=== PATIENT | male | born 1965 | race Native Hawaiian/Other Pacific Islander ===

== ENCOUNTER 2017-04-09 01:22 | Inpatient (IN) | payer OTHER ==
[2017-04-09] MEDS ORDERED: Sodium Chloride 0.9% 1,000 ML IV ONE ×2 (01:56→04:21)
[2017-04-09 02:15] LABS: BASO # 0.1 K/uL (0.0-0.2); BASO % 1.3 % (0.0-2.0); HEMATOCRIT 22.6 % (35.0-51.0); LYMPH # 2.8 K/uL (1.0-4.3); MEAN CELL VOLUME 92.9 fL (80.0-94.0); MEAN CORPUSCULAR HGB CONC 34.4 g/dL (33.0-37.0); MEAN PLATELET VOLUME 11.8 fL (7.2-11.7); MONO # 1.7 K/uL (0.0-0.8); NRBC % 0.9 % (0.0-2.0); RED CELL DISTRIBUTION WIDTH 14.4 % (11.5-14.5); WHITE BLOOD COUNT 9.8 K/uL (4.8-10.8)
[2017-04-09 02:23] LABS: INR 1.2
[2017-04-09 02:33] LABS: BILIRUBIN,TOTAL 2.8 mg/dL (0.2-1.3); CALCIUM 7.7 mg/dl (8.6-10.4); TOTAL PROTEIN 7.7 g/dL (6.3-8.3)
[2017-04-09 02:38] LABS: ALB/GLOB RATIO 0.8 (1.0-2.1)
[2017-04-09 02:45] LABS: TROPONIN I 0.032 ng/mL (0.00-0.120)
[2017-04-09 02:50] LABS: T4 7.94 ug/dL (5.5-11.0)
--- NOTE | 2017-04-09 03:07 | C.PDOC ---
History Of Present Illness 51 year old male presents to the ED with complaints of generalized weakness and difficulty sleeping for a few days. Patient notes a history of chronic alcoholism and stopped drinking alcohol one week ago. Patient denies any past medical history, headache, fever, nausea, or vomiting. Chief Complaint (Nursing): Weakness/Neurological Deficit History Per: Patient History/Exam Limitations: no limitations Onset/Duration Of Symptoms: Days Current Symptoms Are (Timing): Still Present Seizure Or Post-ictal Symptoms: None Fall Associated With With Symptoms: No Recent travel outside of the [place]: No Past Medical History Reviewed: Historical Data, Nursing Documentation, Vital Signs Vital Signs: Last Vital Signs Temp 97.6 F 04/09/17 01:41 Pulse 105 H 04/09/17 04:15 Resp 19 04/09/17 04:15 BP 106/68 04/09/17 04:15 Pulse Ox 98 04/09/17 04:46 Family History: States: Unknown Family Hx - Social History Hx Alcohol Use: Yes Hx Substance Use: No - Immunization History Hx Tetanus Toxoid Vaccination: No Hx Influenza Vaccination: No Hx Pneumococcal Vaccination: No Review Of Systems Constitutional: Positive for: Weakness. Negative for: Fever, Chills Cardiovascular: Negative for: Chest Pain Respiratory: Negative for: Shortness of Breath Gastrointestinal: Negative for: Nausea, Vomiting Physical Exam - Physical Exam Appears: Non-toxic, No Acute Distress Skin: Warm, Dry, Jaundice (slightly jaundice) Head: Atraumatic Eye(s): bilateral: Normal Inspection, PERRL, EOMI Oral Mucosa: Moist Neck: Supple Cardiovascular: No Murmur, Other (Patient is tachycardic ) Respiratory: Normal Breath Sounds, No Rhonchi, No Wheezing Gastrointestinal/Abdominal: Soft, No Tenderness, No Distention, No Guarding, No Rebound Neurological/Psych: Oriented x3, Normal Speech, Normal Cognition, Normal Cranial Nerves, Normal Motor, Normal Sensation Gait: Steady ED Course And Treatment - Laboratory Results Result Diagrams: 04/09/17 02:12 04/09/17 02:12 ECG: Interpreted By Me, Viewed By Me ECG Rhythm: Sinus Tachycardia, Nonspecific Changes ECG Interpretation: No Acute Changes, Abnormal Interpretation Of ECG: Sinus tachycardia, nonspc ST-T changes, abnornal tracings O2 Sat by Pulse Oximetry: 98 (room air ) Disposition Discussed With : Jeffry Lai Doctor Will See Patient In The: Hospital Counseled Patient/Family Regarding: Diagnosis - Disposition Disposition: HOSPITALIZED Disposition Time: 05:06 Condition: STABLE Forms: [facility] ([place]) - Clinical Impression Clinical Impression: Anemia, Liver dysfunction, Chronic alcoholic pancreatitis, Renal insufficiency - Scribe Statement The provider has reviewed the documentation as recorded by the Scribe Meagan Huynh All medical record entries made by the Siddharthibzunilda were at my direction and personally dictated by me. I have reviewed the chart and agree that the record accurately reflects my personal performance of the history, physical exam, medical decision making, and the department course for this patient. I have also personally directed, reviewed, and agree with the discharge instructions and disposition.
--- NOTE | 2017-04-09 03:16 | C.PDOC ---
Chief Complaint (Nursing): Weakness/Neurological Deficit Past Medical History Vital Signs: Last Vital Signs Temp 97.6 F 04/09/17 01:41 Pulse 68 04/09/17 01:41 Resp 18 04/09/17 01:41 BP 116/63 04/09/17 01:41 Pulse Ox 98 04/09/17 01:41 - Social History Hx Alcohol Use: Yes Hx Substance Use: No - Immunization History Hx Tetanus Toxoid Vaccination: No Hx Influenza Vaccination: No Hx Pneumococcal Vaccination: No ED Course And Treatment - Laboratory Results Result Diagrams: 04/09/17 02:12 04/09/17 02:12 O2 Sat by Pulse Oximetry: 98 Disposition Counseled Patient/Family Regarding: Diagnosis - Disposition Disposition: HOSPITALIZED Forms: [facility] ([place])
--- NOTE | 2017-04-09 03:23 | CT ---
EXAM: CT Head Without Intravenous Contrast CLINICAL HISTORY: 51 years old, male; Pain; Headache; Tension; Additional info: Lightheadedness TECHNIQUE: Axial computed tomography images of the head/brain without intravenous contrast. This CT exam was performed using one or more of the following dose reduction techniques: automated exposure control, adjustment of the mA and/or kV according to patient size, and/or use of iterative reconstruction technique. COMPARISON: No relevant prior studies available. FINDINGS: Brain: Nonspecific hypodensity in a left cerebral white matter. Changes consistent with nonspecific small vessel disease. No intracranial mass, mass effect, or midline shift. No hemorrhage. Ventricles: Unremarkable. No ventriculomegaly. Bones/joints: Unremarkable. No acute fracture. Soft tissues: Unremarkable. Sinuses: Unremarkable as visualized. No acute sinusitis. Mastoid air cells: Unremarkable as visualized. No mastoid effusion. IMPRESSION: No acute intracranial abnormality.
[2017-04-09] MEDS ORDERED: Multivitamin (MVI) 10 ML, Thiamine 100 MG, Folic Acid 1 MG in Sodium Chloride 0.9% 1,00... IV ONE (04:20)
--- NOTE | 2017-04-09 06:16 | CP.PCM.HP ---
<Shiraz Cha - Last Filed: 04/09/17 06:18> History of Present Illness - History of Present Illness History of Present Illness: PGY-[address] Lai HPI: Patient is a 51 y/o alcoholic male who presents to the ED with a 2 weeks history of feeling weak, sleepy and feeling unsteady while walking. He states that when he walks he needs to hold on to something so he does not fall down. He denies any prior episodes. Patient has been drinking 6 beers a day for ~30 years. His weakness is associated with diaphoresis and slurred speech. He denies Fever, chills, N/V/SOB/CP/abdominal pain, or tremors. He denies sick contacts and recent travel. PMH: Alcoholism PSH: none FH: none SH: * smoked 1ppd for 30 years, quit 2 weeks ago * drank a 6pack of beer every day for 30 years. quit 2 weeks ago * denies illicit drug use * He works on [employer], single, lives alone Meds: none Allergies: none Present on Admission - Present on Admission Any Indicators Present on Admission: No History of DVT/PE: No History of Uncontrolled Diabetes: No Urinary Catheter: No Decubitus Ulcer Present: No Review of Systems - Constitutional Constitutional: As Per HPI - EENT Eyes: As Per HPI Ears: As Per HPI Nose/Mouth/Throat: As Per HPI - Cardiovascular Cardiovascular: As Per HPI - Respiratory Respiratory: As Per HPI - Gastrointestinal Gastrointestinal: As Per HPI - Genitourinary Genitourinary: As Per HPI - Reproductive: Male Reproductive:Male: As Per HPI - Musculoskeletal Musculoskeletal: As Per HPI - Integumentary Integumentary: As Per HPI - Neurological Neurological: As Per HPI - Psychiatric Psychiatric: As Per HPI - Endocrine Endocrine: As Per HPI - Hematologic/Lymphatic Hematologic: As Per HPI Past Patient History - Past Social History Smoking Status: Former Smoker - PSYCHIATRIC Hx Substance Use: No - SURGICAL HISTORY Hx Surgeries: No Meds Allergies/Adverse Reactions: Allergies Allergy/AdvReac Type Severity Reaction Status Date / Time No Known Allergies Allergy Unverified 04/09/17 01:47 Physical Exam - Constitutional Appears: No Acute Distress Additional comments: lethargic laying in bed with eyes closed - Head Exam Head Exam: ATRAUMATIC, NORMAL INSPECTION, NORMOCEPHALIC - Eye Exam Eye Exam: EOMI, PERRL. absent: Conjunctival injection, Nystagmus, Periorbital swelling, Periorbital tenderness, Scleral icterus Pupil Exam: NORMAL ACCOMODATION, PERRL. absent: Fixed, Irregular, Miosis, Mydriatic - ENT Exam ENT Exam: Mucous Membranes Moist - Respiratory Exam Respiratory Exam: Clear to Auscultation Bilateral, NORMAL BREATHING PATTERN. absent: Accessory Muscle Use, Chest Wall Tenderness, Rales, Rhonchi, Wheezes, Stridor - Cardiovascular Exam Cardiovascular Exam: Tachycardia, REGULAR RHYTHM. absent: Gallop, Rubs - GI/Abdominal Exam GI & Abdominal Exam: Organomegaly (hepatomegaly), Soft. absent: Distended, Tenderness - Extremities Exam Additional comments: upper and lower muscle strength 5/5 - Neurological Exam Neurological exam: Alert, Oriented x3 - Psychiatric Exam Psychiatric exam: Normal Affect, Normal Mood - Skin Skin Exam: Dry, Intact, Normal Color, Warm Results - Vital Signs Recent Vital Signs: Last Vital Signs Temp 97.6 F 04/09/17 01:41 Pulse 104 H 04/09/17 05:45 Resp 22 04/09/17 05:45 BP 129/75 04/09/17 05:45 Pulse Ox 99 04/09/17 05:45 - Labs Result Diagrams: 04/09/17 02:12 04/09/17 02:12 Assessment & Plan - Assessment and Plan (Free Text) Assessment: 1. Chronic Alcoholism * Banana bag administered in ER * 2L NS administered in ER * Continue to Monitor for Signs of DTs, Stopped drinking 2 weeks ago so seizure ppx not necessary * monitor hyponatremia 2. Anemia * Type and screen/type and cross done * repeat stool occult blood - F/U * cbc/cmp to monitor Hgb - F/U * ferritin lvls - F/U * folate lvls - F/U * Fe/TIBC lvls - F/U * reticulocyte count - F/U * vit b12 - F/U * Transfuse if Hgb drops below 7 - Date & Time Date: 04/09/17 Time: 06:34 Decision To Admit - Pt Status Changed To: Hospital Disposition Of: Inpatient - Admit Certification Admit to Inpatient:: After my assessment, the patient will require hospitalization for at least two midnights. This is because of the severity of symptoms shown, intensity of services needed, and/or the medical risk in this patient being treated as an outpatient. - InPatient: Physician Admission Certification:: . - . Bed Request Type: Regular Admitting Physician: Jeffry Lai <Jeffry Lai - Last Filed: 04/09/17 06:48> Results - Vital Signs Recent Vital Signs: Last Vital Signs Temp 97.6 F 04/09/17 01:41 Pulse 104 H 04/09/17 05:45 Resp 22 04/09/17 05:45 BP 129/75 04/09/17 05:45 Pulse Ox 99 04/09/17 05:45 - Labs Result Diagrams: 04/09/17 02:12 04/09/17 02:12 Assessment & Plan - Date & Time Date: 04/09/17 (I have seen and examined the patient. I agree with the findings and plan of care as documented by Dr. Cha. Patient with anemia. Hypotensive and tachycardic in ED, but improved with IVF. Type and Cross 1 unit. Transfuse if hemoglobin drops below 7 or patient has significant source of bleeding. Hemoccult done in ED negative. Check stool OB. Check iron studies, B12, folate, and retic count. CIWA protocol if patient shows signs and symptoms of alcohol withdrawal. Monitor sodium level for worsening hyponatremia. Received normal saline in ED. Monitor for acute changes.) Time: 06:45 Attending/Attestation - Attestation I have personally seen and examined this patient.: Yes I have fully participated in the care of the patient.: Yes I have reviewed all pertinent clinical information: Yes
[2017-04-09 08:11] LABS: BASO # 0.1 K/uL (0.0-0.2); BASO % 0.8 % (0.0-2.0); HEMATOCRIT 16.9 % (35.0-51.0); LYMPH # 2.1 K/uL (1.0-4.3); LYMPH % 29.9 % (20.0-40.0); MEAN CELL VOLUME 93.4 fL (80.0-94.0); MEAN CORPUSCULAR HGB CONC 34.2 g/dL (33.0-37.0); MONO # 1.2 K/uL (0.0-0.8); MONO % 17.2 % (0.0-10.0); NRBC % 0.8 % (0.0-2.0); RED CELL DISTRIBUTION WIDTH 14.1 % (11.5-14.5); RETIC% 10.2 % (0.5-1.5)
[2017-04-09 08:20] LABS: CHLORIDE 102 mmol/L (98-107); SODIUM 132 mmol/L (132-148)
[2017-04-09 08:21] LABS: URINE BACTERIA RARE (<OCC); URINE BILIRUBIN NEGATIVE (NEGATIVE); URINE BLOOD 2+ (NEGATIVE); URINE COLOR Amber (YELLOW); URINE GLUCOSE (UA) NORMAL (Normal); URINE KETONE NEGATIVE (NEGATIVE); URINE LEUKOCYTE ESTERASE NEG Leu/uL (Negative); URINE PROTEIN NEGATIVE (NEGATIVE); URINE UROBILINOGEN NORMAL mg/dL (0.2-1.0)
[2017-04-09 08:21] LABS: IRON 104 ug/dL (49-181); POTASSIUM 4.5 mmol/L (3.6-5.2)
[2017-04-09 08:23] LABS: ALB/GLOB RATIO 0.7 (1.0-2.1); ALKALINE PHOSPHATASE 42 U/L (38-126); ALT/SGPT 48 U/L (21-72); AST/SGOT 61 U/L (17-59); BILIRUBIN,TOTAL 1.6 mg/dL (0.2-1.3); BLOOD UREA NITROGEN 57 mg/dL (9-20); CARBON DIOXIDE 18 mmol/L (22-30); GFR AFRICAN-AMERICAN > 60; GLUCOSE,RANDOM 107 mg/dL (75-110); TOTAL PROTEIN 5.8 g/dL (6.3-8.3)
[2017-04-09 08:30] LABS: URINE HYALINE CAST 0-2 /lpf (0-2); WBC URINE 5 /hpf (0-5)
[2017-04-09 08:32] LABS: RBC URINE 3 /hpf (0-3)
--- NOTE | 2017-04-09 08:35 | RAD ---
HISTORY: chest pain COMPARISON: No prior. TECHNIQUE: Chest PA and lateral FINDINGS: LUNGS: Diffuse increased interstitial lung markings. Patchy increased markings at the right lung base. Biapical pleural thickening with upper lobe nodularity and or granulomatous changes. PLEURA: No significant pleural effusion identified. No pneumothorax apparent. CARDIOVASCULAR: Normal. OSSEOUS STRUCTURES: No significant abnormalities. VISUALIZED UPPER ABDOMEN: Normal. OTHER FINDINGS: None. IMPRESSION: Diffuse increased interstitial lung markings. Patchy increased markings at the right lung base. Biapical pleural thickening with upper lobe nodularity and or granulomatous changes.
[2017-04-09 08:36] LABS: CALCIUM 6.6 mg/dl (8.6-10.4)
[2017-04-09] MEDS ORDERED: Pantoprazole 80 MG in Sodium Chloride 0.9% 100 ML IVP SCH (08:45)
[2017-04-09 09:12] LABS: BASO # 0.1 K/uL (0.0-0.2); BASO % 0.8 % (0.0-2.0); HEMATOCRIT 19.4 % (35.0-51.0); LYMPH # 3.3 K/uL (1.0-4.3); LYMPH % 34.7 % (20.0-40.0); MEAN CELL VOLUME 93.9 fL (80.0-94.0); MEAN CORPUSCULAR HEMOGLOBIN 32.3 pg (27.0-31.0); MEAN CORPUSCULAR HGB CONC 34.3 g/dL (33.0-37.0); MEAN PLATELET VOLUME 11.7 fL (7.2-11.7); MONO # 1.6 K/uL (0.0-0.8); MONO % 16.6 % (0.0-10.0); NRBC % 0.7 % (0.0-2.0); RED CELL DISTRIBUTION WIDTH 14.1 % (11.5-14.5); WHITE BLOOD COUNT 9.4 K/uL (4.8-10.8)
[2017-04-09 09:28] LABS: FOLATE > 20.0 ng/mL
[2017-04-09] MEDS: Pantoprazole 80 MG in Sodium Chloride 0.9% 100 ML IV SCH ×3 (09:45→22:39)
[2017-04-09] MEDS ORDERED: Pneumococcal 23-Valent Vaccine IM ONE (11:49)
[2017-04-09] MEDS: Thiamine 100 mg/ml Inj IV SCH (12:28)
[2017-04-09 13:32] LABS: CARCINOEMBRYONIC ANTIGEN 3.6 ng/mL (0-3.0)
[2017-04-09 13:33] LABS: PROSTATE SPECIFIC ANTIGEN 0.297 ng/mL (0.00-4.0)
--- NOTE | 2017-04-09 18:16 | CP.PCM.PN ---
Subjective - Date & Time of Evaluation Date of Evaluation: 04/09/17 Time of Evaluation: 08:00 - Subjective Subjective: Progress Note for Dr. Carreno Patient seen and examined at bedside. Patient reports feeling fatigued and weak. Patient denies changes in stool, dark tarry stools. Patient denies nausea , vomiting, hematemesis, constipation, diarrhea, hematochezia. Per patient, the last time he drank alcohol was on 03/24/17. Patient denies tremors. Objective - Vital Signs/Intake and Output Vital Signs (last 24 hours): Temp Pulse Resp BP Pulse Ox 98.2 F 90 20 120/70 100 04/09/17 17:00 04/09/17 17:00 04/09/17 17:00 04/09/17 17:00 04/09/17 15:36 Intake and Output: 04/09/17 04/09/17 06:59 18:59 Intake Total 775 Balance 775 - Medications Medications: Current Medications Folic Acid 1 mg/ Sodium (Chloride) 100.2 mls @ 60 mls/hr IV DAILY JASSON Last Admin: 04/09/17 09:45 Dose: 60 mls/hr Pantoprazole Sodium 80 mg/ (Sodium Chloride) 100 mls @ 10 mls/hr IV .Q10H JASSON PRN Reason: 8 MG/HR Last Admin: 04/09/17 09:45 Dose: 10 mls/hr Thiamine HCl (Vitamin B1 Inj) 100 mg IV DAILY JASSON Last Admin: 04/09/17 12:28 Dose: 100 mg - Labs Labs: 04/09/17 09:07 04/09/17 08:00 PT 12.9 SECONDS (9.7-12.2) H 04/09/17 02:12 INR 1.2 04/09/17 02:12 - Constitutional Appears: No Acute Distress - Head Exam Head Exam: ATRAUMATIC, NORMAL INSPECTION, NORMOCEPHALIC - Eye Exam Eye Exam: EOMI, PERRL - ENT Exam ENT Exam: Mucous Membranes Moist - Respiratory Exam Respiratory Exam: Clear to Ausculation Bilateral - Cardiovascular Exam Cardiovascular Exam: REGULAR RHYTHM, +S1, +S2 - GI/Abdominal Exam GI & Abdominal Exam: Soft, Normal Bowel Sounds. absent: Tenderness - Extremities Exam Extremities Exam: absent: Pedal Edema, Tenderness - Neurological Exam Neurological Exam: Alert, Awake, Oriented x3 - Skin Skin Exam: Dry, Intact, Pallor Assessment and Plan - Assessment and Plan (Free Text) Plan: 1. Chronic Alcoholism * Banana bag administered in ER * 2L NS administered in ER * Continue to Monitor for Signs of DTs, Stopped drinking 2 weeks ago so seizure ppx not necessary * monitor hyponatremia * Lipase 457 * Thiamine IV * Folate IV * Protonix drip 2. Anemia * Dr. Angela (GI) consulted, help appreciated * Type and screen/type and cross done * repeat stool occult blood - F/U * cbc/cmp to monitor Hgb - F/U * Iron 104 * TIBC low at 214 * Ferritin 4760 * reticulocyte count -elevated at 12.3 * vit b12 - 779 * CEA elevated at 3.6 * PSA 0.297 * LDH elevated at 3501 * F/u haptoglobin * Transfuse if Hgb drops below 7 04/09/17: Patient transfused 2 units of PRBCs. After the first transfusion, patient was reexamined and reported that he felt much better since this morning. F/u repeat CBC after 2nd transfusion. Case discussed with Dr. Wai Rojas PGY1
[2017-04-09] MEDS: Sodium Chloride 0.9% 1,000 ML IV SCH (22:41)
[2017-04-10 01:18] LABS: BASO # 0.1 K/uL (0.0-0.2); HEMATOCRIT 24.5 % (35.0-51.0); LYMPH # 1.8 K/uL (1.0-4.3); MEAN CELL VOLUME 92.5 fL (80.0-94.0); MEAN CORPUSCULAR HEMOGLOBIN 31.5 pg (27.0-31.0); MEAN CORPUSCULAR HGB CONC 34.1 g/dL (33.0-37.0); MEAN PLATELET VOLUME 11.2 fL (7.2-11.7); MONO # 1.3 K/uL (0.0-0.8); NRBC % 1.8 % (0.0-2.0); RED CELL DISTRIBUTION WIDTH 14.7 % (11.5-14.5); WHITE BLOOD COUNT 6.7 K/uL (4.8-10.8)
--- NOTE | 2017-04-10 10:47 | CP.PCM.PN ---
Subjective - Date & Time of Evaluation Date of Evaluation: 04/10/17 Time of Evaluation: 10:47 - Subjective Subjective: PGY-[address] Martinez HPI: Patient was seen and examined at bedside. Resting comfortably in NAD. Patient admits to continued feelings of generalized weakness and lightheadedness. Also mentions feeling slightly dizzy on attempts at ambulation. Denies any slips or falls during these attempts. He reports receiving adequate sleep last night, and has been passing urine and BM without issue. Patient denies signs of fevers, chills, chest pain, palpitations, SOB, n/ v/d, abdominal pain, hematemsis, hematochezia, melena, dysuria, hematuria, leg pain or syncope. No other complaints are noted at this time. Objective - Vital Signs/Intake and Output Vital Signs (last 24 hours): Temp Pulse Resp BP Pulse Ox 98.8 F 92 H 20 118/71 99 04/10/17 08:46 04/10/17 08:46 04/10/17 08:46 04/10/17 08:46 04/10/17 08:46 Intake and Output: 04/10/17 04/10/17 06:59 18:59 Intake Total 1885 Balance 1885 - Medications Medications: Current Medications Folic Acid 1 mg/ Sodium (Chloride) 100.2 mls @ 60 mls/hr IV DAILY JASSON Last Admin: 04/09/17 09:45 Dose: 60 mls/hr Pantoprazole Sodium 80 mg/ (Sodium Chloride) 100 mls @ 10 mls/hr IV .Q10H JASSON PRN Reason: 8 MG/HR Last Admin: 04/09/17 22:39 Dose: 10 mls/hr Sodium Chloride (Sodium Chloride 0.9%) 1,000 mls @ 100 mls/hr IV .Q10H JASSON Last Admin: 04/09/17 22:41 Dose: 100 mls/hr Thiamine HCl (Vitamin B1 Inj) 100 mg IV DAILY JASSON Last Admin: 04/09/17 12:28 Dose: 100 mg - Labs Labs: 04/10/17 00:48 04/09/17 08:00 PT 12.9 SECONDS (9.7-12.2) H 04/09/17 02:12 INR 1.2 04/09/17 02:12 - Constitutional Appears: Well, No Acute Distress - Head Exam Head Exam: ATRAUMATIC, NORMAL INSPECTION, NORMOCEPHALIC - Eye Exam Eye Exam: EOMI - ENT Exam ENT Exam: Mucous Membranes Moist - Respiratory Exam Respiratory Exam: Clear to Ausculation Bilateral, NORMAL BREATHING PATTERN - Cardiovascular Exam Cardiovascular Exam: REGULAR RHYTHM, RRR - GI/Abdominal Exam GI & Abdominal Exam: Soft, Normal Bowel Sounds. absent: Distended, Guarding, Rigid, Tenderness - Extremities Exam Extremities Exam: Normal Capillary Refill. absent: Joint Swelling - Neurological Exam Neurological Exam: Alert, Awake, Oriented x3 - Psychiatric Exam Psychiatric exam: Normal Affect, Normal Mood - Skin Skin Exam: Dry, Intact, Normal Color, Warm Assessment and Plan - Assessment and Plan (Free Text) Assessment: 1. Chronic Alcoholism * Banana bag administered in ER * 2L NS administered in ER * Continue to Monitor for Signs of DTs, Stopped drinking 2 weeks ago so seizure ppx not necessary * monitor hyponatremia * Lipase 457 * Thiamine IV * Folate IV * Protonix drip 2. Anemia * Dr. Angela (GI) consulted, help appreciated * repeat stool occult blood - F/U * cbc/cmp to monitor Hgb - F/U * Iron 104 * TIBC low at 214 * Ferritin 4760 * reticulocyte count - elevated at 12.3 * vit b12 - 779 * CEA elevated at 3.6 * PSA 0.297 * LDH elevated at 3501 * F/u haptoglobin * Transfuse if Hgb drops below 7 * Seen by GI (Julio César), says pt does not need a scope at this time * Will consider bleeding scan to determine source of bleed 04/09/17: Patient transfused 2 units of PRBCs. After the first transfusion, patient was reexamined and reported that he felt much better since this morning. F/u repeat CBC after 2nd transfusion.
[2017-04-10] MEDS: Sodium Chloride 0.9% 1,000 ML IV SCH ×3 (11:00→21:57)
[2017-04-10] MEDS: Thiamine 100 mg/ml Inj IV SCH (11:00)
[2017-04-10] MEDS: Pantoprazole 80 MG in Sodium Chloride 0.9% 100 ML IV SCH ×2 (11:15→21:56)
[2017-04-10 11:35] LABS: CHLORIDE 111 mmol/L (98-107); POTASSIUM 4.5 mmol/L (3.6-5.2); SODIUM 138 mmol/L (132-148)
[2017-04-10 11:37] LABS: CARBON DIOXIDE 19 mmol/L (22-30); GFR AFRICAN-AMERICAN > 60
[2017-04-10 11:38] LABS: ALB/GLOB RATIO 0.7 (1.0-2.1); ALKALINE PHOSPHATASE 47 U/L (38-126); ALT/SGPT 42 U/L (21-72); AST/SGOT 57 U/L (17-59); BLOOD UREA NITROGEN 33 mg/dL (9-20); CALCIUM 7.4 mg/dl (8.6-10.4); GLUCOSE,RANDOM 97 mg/dL (75-110); TOTAL PROTEIN 5.7 g/dL (6.3-8.3)
--- NOTE | 2017-04-10 14:20 | CARD ---
APPROVED REPORT EKG Measurement Heart [id number] <Conclusion> Sinus tachycardia Nonspecific ST abnormality Abnormal ECG
[2017-04-10 17:49] LABS: BASO # 0.1 K/uL (0.0-0.2); LYMPH # 2.5 K/uL (1.0-4.3); LYMPH % 35.7 % (20.0-40.0); MEAN CELL VOLUME 95.8 fL (80.0-94.0); MEAN CORPUSCULAR HEMOGLOBIN 32.4 pg (27.0-31.0); MEAN CORPUSCULAR HGB CONC 33.8 g/dL (33.0-37.0); MEAN PLATELET VOLUME 10.6 fL (7.2-11.7); MONO # 1.2 K/uL (0.0-0.8); MONO % 16.4 % (0.0-10.0); NRBC % 0.5 % (0.0-2.0); RED CELL DISTRIBUTION WIDTH 14.8 % (11.5-14.5); WHITE BLOOD COUNT 7.1 K/uL (4.8-10.8)
[2017-04-11] MEDS: Pantoprazole 80 MG in Sodium Chloride 0.9% 100 ML IV SCH ×2 (00:45→10:45)
[2017-04-11] MEDS: Sodium Chloride 0.9% 1,000 ML IV SCH ×2 (05:40→06:44)
[2017-04-11 08:10] LABS: BASO % 0.6 % (0.0-2.0); HEMATOCRIT 23.3 % (35.0-51.0); LYMPH # 2.1 K/uL (1.0-4.3); LYMPH % 31.9 % (20.0-40.0); MEAN CELL VOLUME 97.1 fL (80.0-94.0); MEAN CORPUSCULAR HEMOGLOBIN 32.4 pg (27.0-31.0); MEAN CORPUSCULAR HGB CONC 33.4 g/dL (33.0-37.0); MONO % 15.9 % (0.0-10.0); NRBC % 0.3 % (0.0-2.0); RED CELL DISTRIBUTION WIDTH 14.8 % (11.5-14.5); WHITE BLOOD COUNT 6.6 K/uL (4.8-10.8)
[2017-04-11 08:33] LABS: CHLORIDE 113 mmol/L (98-107)
[2017-04-11 08:34] LABS: SODIUM 139 mmol/L (132-148)
[2017-04-11 08:36] LABS: BILIRUBIN,TOTAL 1.4 mg/dL (0.2-1.3); CARBON DIOXIDE 17 mmol/L (22-30); GFR AFRICAN-AMERICAN > 60
[2017-04-11 08:37] LABS: ALB/GLOB RATIO 0.7 (1.0-2.1); ALKALINE PHOSPHATASE 48 U/L (38-126); ALT/SGPT 36 U/L (21-72); AST/SGOT 47 U/L (17-59); BLOOD UREA NITROGEN 30 mg/dL (9-20); CALCIUM 7.2 mg/dl (8.6-10.4); GLUCOSE,RANDOM 103 mg/dL (75-110); TOTAL PROTEIN 5.4 g/dL (6.3-8.3)
[2017-04-11] MEDS ORDERED: Folic Acid 1 MG, Thiamine 100 MG, Multivitamin (MVI) 10 ML in Dextrose 5% In Water 1,00... IV SCH (12:00)
--- NOTE | 2017-04-11 15:22 | CP.PCM.CON ---
<Asif Martinez - Last Filed: 04/11/17 15:26> History of Present Illness - History of Present Illness History of Present Illness: PGY4 Initial GI Consult Note Mani Lynn is a 51M w/ no sig med hx who present to the EDw ith complaints of malaise, weakness, and near syncope. Pt states that he has been having these symptoms for a few weeks. He was found to have a low hgb og 6.7 after admission and was transfused 2 units. Pts states that he felt much better after the first unit. His hgb peaked to 8.8, but then slowly declined to around ~ 7.8 s/p 2 units. Pt and nursing staff denies any melena, hematemsis, or BRBPR. He denies any abd pain. He does have a sig drinking hx of 6-8 beers daily for the past 30 years. He notes that his friends sometimes comment on how yellow his skin looks and though he has not weighted himself, he states that his friends noticed that his lost weight. ROS: 12point ROS conducted, other than what was stated above its otherwise neg PMHx: Etoh use PSHx:none Social hx: + drinking hx 6-8 beers daily, 1 pack a day for 20+ years; quit both 2 weeks ago Endo hx: none Past Patient History - Past Social History Smoking Status: Former Smoker - MUSCULOSKELETAL/RHEUMATOLOGICAL Hx Falls: No - PSYCHIATRIC Hx Substance Use: No - SURGICAL HISTORY Hx Surgeries: No Meds Allergies/Adverse Reactions: Allergies Allergy/AdvReac Type Severity Reaction Status Date / Time No Known Allergies Allergy Unverified 04/09/17 01:47 - Medications Medications: Current Medications Pantoprazole Sodium 80 mg/ (Sodium Chloride) 100 mls @ 10 mls/hr IV .Q10H [facility] PRN Reason: 8 MG/HR Last Admin: 04/11/17 10:45 Dose: 10 mls/hr Folic Acid 1 mg/ Thiamine HCl 100 mg/ Multivitamins/Vitamin C 10 ml/ Dextrose 1 ,011.2 mls @ 75 mls/hr IV .[id number] [facility] Stop: 04/12/17 01:28 Last Admin: 04/11/17 11:00 Dose: Not Given Folic Acid 1 mg/ Thiamine HCl 100 mg/ Multivitamins/Vitamin C 10 ml/ Dextrose 1 ,011.2 mls @ 75 mls/hr IV .[id number] [facility] Stop: 04/12/17 14:58 Physical Exam - Constitutional Appears: Well, No Acute Distress - Head Exam Head Exam: ATRAUMATIC, NORMOCEPHALIC - Eye Exam Eye Exam: Normal appearance - ENT Exam ENT Exam: Mucous Membranes Moist, Normal Exam - Neck Exam Neck exam: Positive for: Normal Inspection - Respiratory Exam Respiratory Exam: Clear to Auscultation Bilateral, Wheezes, NORMAL BREATHING PATTERN. absent: Rales, Rhonchi - Cardiovascular Exam Cardiovascular Exam: REGULAR RHYTHM, +S1. absent: Systolic Murmur - GI/Abdominal Exam GI & Abdominal Exam: Normal Bowel Sounds, Soft. absent: Guarding, Hypoactive Bowel Sounds, Organomegaly, Pulsatile Mass, Rebound, Rigid, Tenderness - Extremities Exam Extremities exam: Positive for: normal inspection - Neurological Exam Neurological exam: Alert, Normal Gait, Oriented x3 - Psychiatric Exam Psychiatric exam: Normal Affect, Normal Mood - Skin Skin Exam: Dry, Intact, Normal Color, Warm Results - Vital Signs Recent Vital Signs: Last Vital Signs Temp 98.4 F 04/11/17 13:42 Pulse 96 H 04/11/17 13:42 Resp 18 04/11/17 13:42 BP 130/78 04/11/17 13:42 Pulse Ox 99 04/11/17 08:00 - Labs Result Diagrams: 04/11/17 07:58 04/11/17 07:58 Labs: Laboratory Results - last 24 hr 04/09/17 04/10/17 04/10/17 12:19 17:44 17:44 WBC 7.1 RBC 2.71 L Hgb 8.8 L Hct 26.0 L MCV 95.8 H D MCH 32.4 H MCHC 33.8 RDW 14.8 H Plt Count 110 L MPV 10.6 Neut % (Auto) 46.9 L Lymph % (Auto) 35.7 [place] % (Auto) 16.4 H Eos % (Auto) 0.0 Baso % (Auto) 1.0 Neut # 3.3 Lymph # 2.5 [place] # 1.2 H Eos # 0.0 Baso # 0.1 Haptoglobin <15 L Sodium Potassium Chloride Carbon Dioxide Anion Gap BUN Creatinine Est GFR ( Amer) Est GFR (Non-Af Amer) Random Glucose Calcium Total Bilirubin AST ALT Alkaline Phosphatase Total Protein Albumin Globulin Albumin/Globulin Ratio Stool Occult Blood Negative 04/10/17 04/11/17 04/11/17 17:44 07:58 07:58 WBC 6.6 RBC 2.40 L Hgb 7.8 L Hct 23.3 L MCV 97.1 H MCH 32.4 H MCHC 33.4 RDW 14.8 H Plt Count 115 L MPV 11.0 Neut % (Auto) 51.6 Lymph % (Auto) 31.9 [place] % (Auto) 15.9 H Eos % (Auto) 0.0 Baso % (Auto) 0.6 Neut # 3.4 Lymph # 2.1 [place] # 1.0 H Eos # 0.0 Baso # 0.0 Haptoglobin Sodium 139 Potassium 5.0 Chloride 113 H Carbon Dioxide 17 L Anion Gap 14 BUN 30 H Creatinine 1.2 Est GFR ( Amer) > 60 Est GFR (Non-Af Amer) > 60 Random Glucose 103 Calcium 7.2 L Total Bilirubin 1.4 H AST 47 ALT 36 Alkaline Phosphatase 48 Total Protein 5.4 L Albumin 2.2 L Globulin 3.3 Albumin/Globulin Ratio 0.7 L Stool Occult Blood Negative Assessment & Plan - Assessment and Plan (Free Text) Assessment: This pt is a 51M w/ hx of Etoh abuse who presents with anemia. etiology of normocytic anemia is unknown r/o GI loss 1. Normocytic anemia. mixed> DDx: iron def and chronic disease 2. hx of Etoh abuse 3. thrombocytopenia, etiology: DDx: Etoh, portal vein thrombosis, early cirrhosis Plan: -plan for EGD tomorrow -NPO after midnight -complete iron profile -U/S w/ dopplers -consent in chart -pt made aware of risk vs benefits and still wants to proceed with EGD -will eventually need an outpt colonoscopy D/W Dr. Diez <Vini Diez - Last Filed: 04/12/17 10:31> Meds - Medications Medications: Current Medications Pantoprazole Sodium 80 mg/ (Sodium Chloride) 100 mls @ 10 mls/hr IV .Q10H [facility] PRN Reason: 8 MG/HR Last Admin: 04/12/17 06:44 Dose: Not Given Folic Acid 1 mg/ Thiamine HCl 100 mg/ Multivitamins/Vitamin C 10 ml/ Dextrose 1 ,011.2 mls @ 75 mls/hr IV .[id number] [facility] Stop: 04/12/17 14:58 Last Admin: 04/12/17 01:25 Dose: 75 mls/hr Results - Vital Signs Recent Vital Signs: Last Vital Signs Temp 99.2 F 04/12/17 08:30 Pulse 95 H 04/12/17 08:30 Resp 20 04/12/17 08:30 BP 132/79 04/12/17 08:30 Pulse Ox 99 04/12/17 08:30 - Labs Result Diagrams: 04/12/17 06:10 04/12/17 07:15 Labs: Laboratory Results - last 24 hr 04/11/17 04/11/17 04/12/17 20:12 22:53 06:10 WBC 6.1 6.9 RBC 2.76 L 2.70 L Hgb 8.8 L 8.7 L Hct 26.2 L 25.7 L MCV 95.0 H D 95.4 H MCH 32.0 H 32.2 H MCHC 33.7 33.8 RDW 16.0 H 16.6 H Plt Count 111 L 112 L MPV 9.5 10.2 Neut % (Auto) 61.3 59.0 Lymph % (Auto) 23.7 27.3 [place] % (Auto) 14.5 H 13.1 H Eos % (Auto) 0.0 0.0 Baso % (Auto) 0.5 0.6 Neut # 3.8 4.1 Lymph # 1.5 1.9 [place] # 0.9 H 0.9 H Eos # 0.0 0.0 Baso # 0.0 0.0 Neutrophils % (Manual) 60 Band Neutrophils % 9 H Lymphocytes % (Manual) 15 L Monocytes % (Manual) 14 H Metamyelocytes % 2 H Platelet Estimate Slightly decreased L Anisocytosis (manual) Slight Macrocytosis (manual) Slight Sodium Potassium Chloride Carbon Dioxide Anion Gap BUN Creatinine Est GFR ( Amer) Est GFR (Non-Af Amer) Random Glucose Calcium Total Bilirubin AST ALT Alkaline Phosphatase Total Protein Albumin Globulin Albumin/Globulin Ratio Stool Occult Blood Negative 04/12/17 07:15 WBC RBC Hgb Hct MCV MCH MCHC RDW Plt Count MPV Neut % (Auto) Lymph % (Auto) [place] % (Auto) Eos % (Auto) Baso % (Auto) Neut # Lymph # [place] # Eos # Baso # Neutrophils % (Manual) Band Neutrophils % Lymphocytes % (Manual) Monocytes % (Manual) Metamyelocytes % Platelet Estimate Anisocytosis (manual) Macrocytosis (manual) Sodium 137 Potassium 5.3 H Chloride 115 H Carbon Dioxide 16 L Anion Gap 11 BUN 33 H Creatinine 1.4 Est GFR ( Amer) > 60 Est GFR (Non-Af Amer) 54 Random Glucose 118 H Calcium 7.1 L Total Bilirubin 1.2 AST 47 ALT 38 Alkaline Phosphatase 44 Total Protein 5.5 L Albumin 2.2 L Globulin 3.3 Albumin/Globulin Ratio 0.7 L Stool Occult Blood Attending/Attestation - Attestation I have personally seen and examined this patient.: Yes I have fully participated in the care of the patient.: Yes I have reviewed all pertinent clinical information: Yes Notes (Text): 04/12/17 10:27 I have seen and examined patient with GI fellow yesterday, note is being signed today due to computer related issues. Agree with above documentation with the following additions. In brief, this is a 51 year old male with history of ETOH abuse. GI evaluation is requested for evaluation of anemia which has not responded appropriately to inpatient PRBC transfusion. Patient denies abdominal pain, nausea, vomiting, diarrhea, fever/chills, weight loss, melena, or change in bowel habits. ETOH abuse Anemia with inappropriate response to PRBC transfusion - Clear liquid diet as tolerated - Continue with PPI therapy - Plan for EGD evaluation, rule out peptic ulcer disease, esophageal varices, or other clear etiology for ongoing anemia - Patient would also likely benefit from elective outpatient colonoscopy to complete workup
--- NOTE | 2017-04-11 15:59 | CP.PCM.PN ---
<Shiraz Cha - Last Filed: 04/11/17 16:11> Subjective - Date & Time of Evaluation Date of Evaluation: 04/11/17 Time of Evaluation: 15:59 - Subjective Subjective: PGY- [address] Martinez HPI: Patient was seen and examined at bedside. Resting comfortably in NAD. He reports feeling much improved since yesterday, as his dizziness/lightheadedness has mostly resolved. Patient has been passing urine and BM without any issue. He does mention noticing a small amount of nose bleeding this morning upon waking up. He attributes this to "cool, dry air at night". Patient saved the tissue paper, which had only a few droplets in it. At this time, the bleeding has spontaneously resolved. Denies any hematemesis, hematuria or hematochezia/ melena. He also denies signs of chest pain, SOB, n/v/d, constipation, abdominal pain or leg pain. I explained the patient will need an EGD to determine the source of his blood loss. He agree No other complaints are noted at this time. Objective - Vital Signs/Intake and Output Vital Signs (last 24 hours): Temp Pulse Resp BP Pulse Ox 98.7 F 96 H 20 125/71 98 04/11/17 15:33 04/11/17 15:33 04/11/17 15:33 04/11/17 15:33 04/11/17 15:33 Intake and Output: 04/11/17 04/11/17 06:59 18:59 Intake Total 2240 0 Balance 2240 0 - Medications Medications: Current Medications Pantoprazole Sodium 80 mg/ (Sodium Chloride) 100 mls @ 10 mls/hr IV .Q10H JASSON PRN Reason: 8 MG/HR Last Admin: 04/11/17 10:45 Dose: 10 mls/hr Folic Acid 1 mg/ Thiamine HCl 100 mg/ Multivitamins/Vitamin C 10 ml/ Dextrose 1 ,011.2 mls @ 75 mls/hr IV .[id number] [facility] Stop: 04/12/17 01:28 Last Admin: 04/11/17 11:00 Dose: Not Given Folic Acid 1 mg/ Thiamine HCl 100 mg/ Multivitamins/Vitamin C 10 ml/ Dextrose 1 ,011.2 mls @ 75 mls/hr IV .[id number] [facility] Stop: 04/12/17 14:58 - Labs Labs: 04/11/17 07:58 04/11/17 07:58 PT 12.9 SECONDS (9.7-12.2) H 04/09/17 02:12 INR 1.2 04/09/17 02:12 - Constitutional Appears: Well, Non-toxic, No Acute Distress - Head Exam Head Exam: ATRAUMATIC, NORMAL INSPECTION, NORMOCEPHALIC - Eye Exam Eye Exam: EOMI - ENT Exam ENT Exam: Mucous Membranes Moist - Respiratory Exam Respiratory Exam: Clear to Ausculation Bilateral, NORMAL BREATHING PATTERN - Cardiovascular Exam Cardiovascular Exam: REGULAR RHYTHM - GI/Abdominal Exam GI & Abdominal Exam: Soft, Normal Bowel Sounds. absent: Distended, Tenderness - Neurological Exam Neurological Exam: Alert, Awake, Oriented x3 - Psychiatric Exam Psychiatric exam: Normal Affect, Normal Mood - Skin Skin Exam: Dry, Intact, Pallor, Warm Assessment and Plan - Assessment and Plan (Free Text) Assessment: Chronic Alcoholism * Banana Bag x2 * Consider Alcoholic Ketoacidosis considering low Bicarb * Continue to Monitor for Signs of DTs, Stopped drinking 2 weeks ago so seizure ppx not necessary * Protonix drip Anemia * Dr. Diez (GI) consulted, will do EGD in AM * NPO after midnight * GI recommend colonoscopy outpatient * F/U CBC at 9pm * Transfuse if Hgb drops below 8 Epistaxis * Minimal bleeding, did not saturate 4x4 * Stopped spontaneously 04/09/17: Patient transfused 2 units of PRBCs. After the first transfusion, patient was reexamined and reported that he felt much better since this morning. F/u repeat CBC after 2nd transfusion. 04/11/17: Patient Hgb dropped to 7.6 and was tachycardic, transfused 1 unit PRBC, Contacted GI ([facility]) and they deem it necessary to do an EGD in the AM to determine source of blood loss. <Priyank Martinez - Last Filed: 04/11/17 20:38> Objective - Vital Signs/Intake and Output Vital Signs (last 24 hours): Temp Pulse Resp BP Pulse Ox 98.7 F 96 H 18 129/71 98 04/11/17 15:35 04/11/17 15:35 04/11/17 15:35 04/11/17 15:35 04/11/17 15:33 Intake and Output: 04/11/17 04/12/17 18:59 06:59 Intake Total 325 Balance 325 - Medications Medications: Current Medications Pantoprazole Sodium 80 mg/ (Sodium Chloride) 100 mls @ 10 mls/hr IV .Q10H [facility] PRN Reason: 8 MG/HR Last Admin: 04/11/17 10:45 Dose: 10 mls/hr Folic Acid 1 mg/ Thiamine HCl 100 mg/ Multivitamins/Vitamin C 10 ml/ Dextrose 1 ,011.2 mls @ 75 mls/hr IV .[id number] [facility] Stop: 04/12/17 01:28 Last Admin: 04/11/17 11:00 Dose: Not Given Folic Acid 1 mg/ Thiamine HCl 100 mg/ Multivitamins/Vitamin C 10 ml/ Dextrose 1 ,011.2 mls @ 75 mls/hr IV .[id number] [facility] Stop: 04/12/17 14:58 - Labs Labs: 04/11/17 07:58 04/11/17 07:58 PT 12.9 SECONDS (9.7-12.2) H 04/09/17 02:12 INR 1.2 04/09/17 02:12 Attending/Attestation - Attestation I have personally seen and examined this patient.: Yes I have fully participated in the care of the patient.: Yes I have reviewed all pertinent clinical information, including history, physical exam and plan: Yes Notes (Text): 04/11/17 20:31 Patient was seen and examined at 9:15 AM 04/11/17. Exam, Assessment and Plan were thoroughly discussed with Resident. Assessments: Anemia likely secondary to suspected Upper GI Bleed secondary to history of Alocohl/Tobacco use: 1 more unit PRBC ordered for 04/11/17 Hx Alcoholism Metabolic Acidosis: fluids switched to Bannana Bag (containing D5) for 2 more liters to end administration around 11 AM 04/12/17 Hyponatremia: resolved Elevated LFTs: resolved Tachycardia: likely secondary to the anemia Elevated CEA: explained at [facility] to patient that he will require a Colonoscopy to rule out colonic mass. I spoke at [facility] with original GI behavioral health consultant Dr. Angela about my concerns for Upper GI Bleed for this patient due to the low HgB/Hct and history of alcohol/ tobacco use. Second opinion was sought for this issue was sought with GI Dr. Diez after my conversation with Dr. Angela, who stated he would not perform upper EGD on patient due to administrative issues that he had with uninsured patients. I explained my concerns to Dr. Diez as well as patient's history. Dr. Diez will be performing Upper EGD on morning 04/12/17 and his help is greatly appreciated. Priyank Martinez D.O. 04/11/17 20:38
--- NOTE | 2017-04-11 21:35 | US ---
EXAM: US Abdomen Complete CLINICAL HISTORY: 51 years old, male; Signs and symptoms; Other: Evaluate liver , R/O portal vein thrombosis; Additional info: Eval liver, R/O portal vein thrombosis TECHNIQUE: Real-time ultrasound of the abdomen (complete) with image documentation. EXAM DATE/TIME: 04/11/2017 3:31 PM COMPARISON: There are no prior studies for comparison. FINDINGS: Liver: Liver is unremarkable. There is hepatopedal flow in the main portal vein. Gallbladder: Gallbladder is partially distended. There is gallbladder wall thickening and pericholecystic inflammation and edema. There is sludge in the gallbladder. There is gallbladder wall thickening, 6.1 mm in width. Common bile duct: Common bile duct measures 3.9 mm in diameter Pancreas: Pancreas is partially obscured by bowel gas. Kidneys: Kidneys are unremarkable. Spleen: The spleen is enlarged, 15.3 cm in length. There is a 1 x 1 x 1.2 cm low attenuation vascular lesion in the spleen. Aorta: Visualized portions of the aorta and inferior vena cava are unremarkable. Inferior vena cava: See above. IMPRESSION: Partially distended gallbladder with wall thickening, pericholecystic fluid and minimal sludge, suggest possible acalculous cholecystitis; no focal hepatic lesion; patent main portal vein; mild splenomegaly small vascular lesion Patient was not tender over the gallbladder
[2017-04-11 22:56] LABS: BASO % 0.5 % (0.0-2.0); HEMATOCRIT 26.2 % (35.0-51.0); LYMPH # 1.5 K/uL (1.0-4.3); LYMPH % 23.7 % (20.0-40.0); MEAN CORPUSCULAR HGB CONC 33.7 g/dL (33.0-37.0); MEAN PLATELET VOLUME 9.5 fL (7.2-11.7); MONO # 0.9 K/uL (0.0-0.8); MONO % 14.5 % (0.0-10.0); NRBC % 0.2 % (0.0-2.0); WHITE BLOOD COUNT 6.1 K/uL (4.8-10.8)
[2017-04-12] MEDS: Pantoprazole 80 MG in Sodium Chloride 0.9% 100 ML IV SCH ×2 (01:28→06:44)
[2017-04-12] MEDS ORDERED: Folic Acid 1 MG, Thiamine 100 MG, Multivitamin (MVI) 10 ML in Dextrose 5% In Water 1,00... IV SCH (01:30)
[2017-04-12 07:25] LABS: BASO % 0.6 % (0.0-2.0); HEMATOCRIT 25.7 % (35.0-51.0); LYMPH # 1.9 K/uL (1.0-4.3); LYMPH % 27.3 % (20.0-40.0); MEAN CELL VOLUME 95.4 fL (80.0-94.0); MEAN CORPUSCULAR HEMOGLOBIN 32.2 pg (27.0-31.0); MEAN CORPUSCULAR HGB CONC 33.8 g/dL (33.0-37.0); MEAN PLATELET VOLUME 10.2 fL (7.2-11.7); MONO # 0.9 K/uL (0.0-0.8); MONO % 13.1 % (0.0-10.0); NRBC % 0.1 % (0.0-2.0); PLATELET COUNT 112 K/uL (130-400); RED CELL DISTRIBUTION WIDTH 16.6 % (11.5-14.5); WHITE BLOOD COUNT 6.9 K/uL (4.8-10.8)
[2017-04-12 07:57] LABS: CHLORIDE 115 mmol/L (98-107); SODIUM 137 mmol/L (132-148)
[2017-04-12 07:58] LABS: POTASSIUM 5.3 mmol/L (3.6-5.2)
[2017-04-12 08:00] LABS: ALB/GLOB RATIO 0.7 (1.0-2.1); ALKALINE PHOSPHATASE 44 U/L (38-126); ALT/SGPT 38 U/L (21-72); AST/SGOT 47 U/L (17-59); BILIRUBIN,TOTAL 1.2 mg/dL (0.2-1.3); BLOOD UREA NITROGEN 33 mg/dL (9-20); CARBON DIOXIDE 16 mmol/L (22-30); GFR AFRICAN-AMERICAN > 60; GLUCOSE,RANDOM 118 mg/dL (75-110); TOTAL PROTEIN 5.5 g/dL (6.3-8.3)
[2017-04-12 08:01] LABS: CALCIUM 7.1 mg/dl (8.6-10.4)
[2017-04-12 10:06] LABS: METAMYELOCYTE 2 % (0-0); NEUTROPHIL 60 % (50-75); TOTAL CELLS COUNTED 100
[2017-04-12] MEDS ORDERED: Midazolam 2 MG/2 ML VIAL ONE (11:32)
[2017-04-12] MEDS ORDERED: Propofol 10 mg/ml Inj (20 ML) ONE (11:32)
[2017-04-12] MEDS ORDERED: Lactated Ringer's 500 ML IV ONE (11:36)
--- NOTE | 2017-04-12 12:10 | CP.PCM.PN ---
Subjective - Date & Time of Evaluation Date of Evaluation: 04/12/17 Time of Evaluation: 12:07 - Subjective Subjective: Patient seen and examined. No acute events overnight. No bowel movements, patient denies abdominal pain, nausea, vomiting, fever/chills. s/p EGD today showing erosive gastropathy without any evidence of recent or active bleeding. Objective - Vital Signs/Intake and Output Vital Signs (last 24 hours): Temp Pulse Resp BP Pulse Ox 99.2 F 95 H 20 132/79 99 04/12/17 08:30 04/12/17 08:30 04/12/17 08:30 04/12/17 08:30 04/12/17 08:30 Intake and Output: 04/12/17 04/12/17 06:59 18:59 Intake Total 2240 Balance 2240 - Medications Medications: Current Medications Folic Acid 1 mg/ Thiamine HCl 100 mg/ Multivitamins/Vitamin C 10 ml/ Dextrose 1 ,011.2 mls @ 75 mls/hr IV .[id number] [facility] Stop: 04/12/17 14:58 Last Admin: 04/12/17 01:25 Dose: 75 mls/hr Pantoprazole Sodium (Protonix Ec Tab) 40 mg PO DAILY JASSON - Labs Labs: 04/12/17 06:10 04/12/17 07:15 PT 12.9 SECONDS (9.7-12.2) H 04/09/17 02:12 INR 1.2 04/09/17 02:12 Assessment and Plan - Assessment and Plan (Free Text) Assessment: ETOH abuse Anemia, macrocytic Plan: - H/H stable, without signs of overt bleeding, continue to monitor - Await biopsy results from EGD today - May discontinue IV PPI therapy and change to oral once daily - Advance diet as tolerated - Ideally iron studies should have been obtained prior to PRBC transfusion, can perform additional workup as outpatient - Suggest elective outpatient colonoscopy to complete workup of anemia - Will sign off case, please reconsult as necessary, thank you.
--- NOTE | 2017-04-12 14:43 | CP.PCM.PN ---
<Shiraz Cha - Last Filed: 04/12/17 14:52> Subjective - Date & Time of Evaluation Date of Evaluation: 04/12/17 Time of Evaluation: 14:40 - Subjective Subjective: PGY-[address] Martinez HPI: Patient seen adn examined at bedside. Doing well. Sitting in chair. Said he had some nausea overnight but when he got up and sat in the chair he felt better. Explained that he was going to have an EGD today and discussed the results of his abdominal US. Patient agreed with the plans for the day. Otherwise no complaints at this time. Objective - Vital Signs/Intake and Output Vital Signs (last 24 hours): Temp Pulse Resp BP Pulse Ox 97.1 F L 82 21 127/78 100 04/12/17 12:11 04/12/17 12:40 04/12/17 12:40 04/12/17 12:40 04/12/17 12:40 Intake and Output: 04/12/17 04/12/17 06:59 18:59 Intake Total 2240 Balance 2240 - Medications Medications: Current Medications Folic Acid 1 mg/ Thiamine HCl 100 mg/ Multivitamins/Vitamin C 10 ml/ Dextrose 1 ,011.2 mls @ 75 mls/hr IV .[id number] [facility] Stop: 04/12/17 14:58 Last Admin: 04/12/17 01:25 Dose: 75 mls/hr Pantoprazole Sodium (Protonix Ec Tab) 40 mg PO DAILY JASSON - Labs Labs: 04/12/17 06:10 04/12/17 07:15 PT 12.9 SECONDS (9.7-12.2) H 04/09/17 02:12 INR 1.2 04/09/17 02:12 - Constitutional Appears: Well, Non-toxic, No Acute Distress - Head Exam Head Exam: NORMAL INSPECTION - Eye Exam Eye Exam: EOMI - ENT Exam ENT Exam: Mucous Membranes Moist - Respiratory Exam Respiratory Exam: Clear to Ausculation Bilateral, NORMAL BREATHING PATTERN - Cardiovascular Exam Cardiovascular Exam: REGULAR RHYTHM - GI/Abdominal Exam GI & Abdominal Exam: Soft, Normal Bowel Sounds. absent: Distended, Tenderness - Extremities Exam Extremities Exam: absent: Calf Tenderness - Neurological Exam Neurological Exam: Alert, Awake, Oriented x3 - Psychiatric Exam Psychiatric exam: Normal Affect, Normal Mood - Skin Skin Exam: Dry, Normal Color, Warm Assessment and Plan - Assessment and Plan (Free Text) Assessment: Chronic Alcoholism * Banana Bag today for Metabolic acidosis Anemia * EGD: Erosive Gastropathy with no active bleeding, Needs Outpatient colonoscopy to workup anemia and elevated CEA * Transfuse if Hgb drops below 8 Tachycardia * Likely secondary to anemia Elevated LFTs - Resolved Hyponatremia - Resolved Epistaxis - Resolved * Minimal bleeding, did not saturate 4x4 * Stopped spontaneously Prophylaxis * Pantoprazole 30mg PO QD * Ambulate/OOB 04/09/17: Patient transfused 2 units of PRBCs. After the first transfusion, patient was reexamined and reported that he felt much better since this morning. F/u repeat CBC after 2nd transfusion. 04/11/17: Patient Hgb dropped to 7.6 and was tachycardic, transfused 1 unit PRBC, Contacted GI ([facility]) and they deem it necessary to do an EGD in the AM to determine source of blood loss. 04/12/17: Patient has a Abdominal US with pericholecystic fluid and a thickened wall which may suggest acalculous cholecystitis. EGD showed erosive gastropathy with no active or recent bleed. <Priyank Martinez - Last Filed: 04/12/17 21:03> Objective - Vital Signs/Intake and Output Vital Signs (last 24 hours): Temp Pulse Resp BP Pulse Ox 98.4 F 93 H 18 143/81 100 04/12/17 17:25 04/12/17 17:25 04/12/17 17:25 04/12/17 17:25 04/12/17 17:25 - Medications Medications: Current Medications Acetaminophen (Tylenol 325mg Tab) 650 mg PO ONCE PRN PRN Reason: Allergy symptoms Diphenhydramine HCl (Benadryl) 25 mg PO ONCE PRN PRN Reason: Allergy symptoms Sodium Bicarbonate 100 meq/ (Sodium Chloride) 1,100 mls @ 65 mls/hr IV .[id number] [facility] Piperacillin Sod/Tazobactam (Sod 3.375 gm/ Sodium Chloride) 100 mls @ 200 mls/ hr IVPB Q6H [facility] Last Admin: 04/12/17 19:39 Dose: 200 mls/hr Pantoprazole Sodium (Protonix Ec Tab) 40 mg PO DAILY JASSON - Labs Labs: 04/12/17 06:10 04/12/17 07:15 PT 12.9 SECONDS (9.7-12.2) H 04/09/17 02:12 INR 1.2 04/09/17 02:12 Attending/Attestation - Attestation I have personally seen and examined this patient.: Yes I have fully participated in the care of the patient.: Yes I have reviewed all pertinent clinical information, including history, physical exam and plan: Yes Notes (Text): 04/12/17 20:55 Patient was seen and examined at 3 PM AM 04/12/17. Exam, Assessment and Plan were thoroughly discussed with Resident. In addition to the above on exam: GI: BSx4 are reduced, Soft, ND, (+)Tenderness RUQ/RLQ described as a "sensitivity" but there is NO Arango's sign Assessments: Anemia likely secondary to suspected Upper GI Bleed secondary to history of Alocohl/Tobacco use: Upper EGD by GI Dr. Diez showed Erosive Gastropathy and the biopsies will need to be followed up Acute Cholecystitis: Abdominal U/S shows evidence of this. Surgery Dr. Zamora's team will perform cholecystectomy once the HgB/Hct remains stable. Zosyn 3.375 gm IV Q6H started today. Nonanion Gap Metabolic Acidosis: as per ABG and today's labs. Could be secondary to the Acute Cholecystitis/Bacteremia. F/U blood culture. Transfuse 1 unit PRBC so that there is a increase in HgB/Hct and give 1 dose of Ferrlicit. Also started 1/2 NS with 2 AMPs of HCO3 @ 65 ml/hour Hyperkalemia: the 1/2 NS with 2 AMPS HCO3 will help with this Hx Alcoholism Hyponatremia: resolved Elevated LFTs: resolved Tachycardia: likely secondary to the anemia Elevated CEA: explained at length to patient that he will require a Colonoscopy to rule out colonic mass. B/L Upper Lung Lobe Nodules: will need follow up CT Chest as outpatient in 6 months. Priyank Martinez D.O.
[2017-04-12] MEDS ORDERED: Piperacillin/Tazobact 3.375 GM in Sodium Chloride 100 ML IVPB SCH (16:00)
[2017-04-12 16:11] LABS: ABG ALLEN TEST POS; ARTERIAL BLOOD HGB O2 SAT 95.2 % (95.0-98.0); DRAW SITE RRA; HHB 0.8 % (0.0-5.0)
--- NOTE | 2017-04-12 16:54 | CP.PCM.CON ---
History of Present Illness - History of Present Illness History of Present Illness: Consulted for abdominal ultrasound HPI: Patient is a 51 year old male with past medical history of alcoholism who was admitted for weakness. Surgery was consulted due to findings on abdominal ultrasound. Patient denies abdominal pain, nausea, vomiting, fever, chills. Patient is tolerating diet, having bowel movements and passing flatus. Patient had no other complaints. Patient reports that he is doing well. PMHx: Alcohol abuse PSHx: None Medications: None Allergies: NKDA FHx: None contributory Social History: Single, lives alone. Admits to smoked 1ppd for 30 years, but currently smokes intermittently, drinking 6 pack of beer every day 30 years and currently drinks intermittently but denies illicit drug use Review of Systems - Constitutional Constitutional: absent: Chills, Fever, Headache - Cardiovascular Cardiovascular: absent: Chest Pain, Chest Pain at Rest, Diaphoresis, Palpitations - Respiratory Respiratory: absent: Dyspnea, Dyspnea on Exertion - Gastrointestinal Gastrointestinal: absent: Abdominal Pain, Coffee Ground Emesis, Constipation, Cramping, Diarrhea, Hematemesis, Hematochezia, Nausea, Vomiting - Genitourinary Genitourinary: absent: Hematuria - Psychiatric Psychiatric: absent: Change in Appetite - Endocrine Endocrine: Fatigue. absent: Palpitations Past Patient History - Past Social History Smoking Status: Former Smoker - MUSCULOSKELETAL/RHEUMATOLOGICAL Hx Falls: No - PSYCHIATRIC Hx Substance Use: No - SURGICAL HISTORY Hx Surgeries: No Meds Allergies/Adverse Reactions: Allergies Allergy/AdvReac Type Severity Reaction Status Date / Time No Known Allergies Allergy Unverified 04/09/17 01:47 - Medications Medications: Current Medications Piperacillin Sod/Tazobactam (Sod 3.375 gm/ Sodium Chloride) 100 mls @ 200 mls/ hr IVPB Q6H [facility] Pantoprazole Sodium (Protonix Ec Tab) 40 mg PO DAILY [facility] Results - Vital Signs Recent Vital Signs: Last Vital Signs Temp 98.2 F 04/12/17 12:50 Pulse 85 04/12/17 12:50 Resp 18 04/12/17 12:50 BP 125/76 04/12/17 12:50 Pulse Ox 99 04/12/17 12:50 - Labs Result Diagrams: 04/12/17 06:10 04/12/17 07:15 Labs: Laboratory Results - last 24 hr 04/11/17 04/11/1704/12/17 20:12 22:53 06:10 WBC 6.1 6.9 RBC 2.76 L 2.70 L Hgb 8.8 L 8.7 L Hct 26.2 L 25.7 L MCV 95.0 H D 95.4 H MCH 32.0 H 32.2 H MCHC 33.7 33.8 RDW 16.0 H 16.6 H Plt Count 111 L 112 L MPV 9.5 10.2 Neut % (Auto) 61.3 59.0 Lymph % (Auto) 23.7 27.3 [place] % (Auto) 14.5 H 13.1 H Eos % (Auto) 0.0 0.0 Baso % (Auto) 0.5 0.6 Neut # 3.8 4.1 Lymph # 1.5 1.9 [place] # 0.9 H 0.9 H Eos # 0.0 0.0 Baso # 0.0 0.0 Neutrophils % (Manual) 60 Band Neutrophils % 9 H Lymphocytes % (Manual) 15 L Monocytes % (Manual) 14 H Metamyelocytes % 2 H Platelet Estimate Slightly decreased L Anisocytosis (manual) Slight Macrocytosis (manual) Slight Puncture Site pCO2 pO2 HCO3 ABG pH ABG Total CO2 ABG O2 Saturation ABG Base Excess ABG Hemoglobin ABG Carboxyhemoglobin POC ABG HHb (Measured) ABG Methemoglobin Chandra Test A-a O2 Difference Respiratory Index Hgb O2 Saturation FiO2 Sodium Potassium Chloride Carbon Dioxide Anion Gap BUN Creatinine Est GFR ( Amer) Est GFR (Non-Af Amer) Random Glucose Calcium Total Bilirubin AST ALT Alkaline Phosphatase Total Protein Albumin Globulin Albumin/Globulin Ratio Stool Occult Blood Negative 04/12/17 04/12/17 07:15 16:05 WBC RBC Hgb Hct MCV MCH MCHC RDW Plt Count MPV Neut % (Auto) Lymph % (Auto) [place] % (Auto) Eos % (Auto) Baso % (Auto) Neut # Lymph # [place] # Eos # Baso # Neutrophils % (Manual) Band Neutrophils % Lymphocytes % (Manual) Monocytes % (Manual) Metamyelocytes % Platelet Estimate Anisocytosis (manual) Macrocytosis (manual) Puncture Site Rra pCO2 26 L pO2 105 H HCO3 16.3 L ABG pH 7.33 L ABG Total CO2 14.5 L ABG O2 Saturation 99.2 H ABG Base Excess -11.0 L ABG Hemoglobin 8.5 L ABG Carboxyhemoglobin 3.0 H POC ABG HHb (Measured) 0.8 ABG Methemoglobin 1.0 Chandra Test Pos A-a O2 Difference 12.0 Respiratory Index 0.1 Hgb O2 Saturation 95.2 FiO2 21.0 Sodium 137 Potassium 5.3 H Chloride 115 H Carbon Dioxide 16 L Anion Gap 11 BUN 33 H Creatinine 1.4 Est GFR ( Amer) > 60 Est GFR (Non-Af Amer) 54 Random Glucose 118 H Calcium 7.1 L Total Bilirubin 1.2 AST 47 ALT 38 Alkaline Phosphatase 44 Total Protein 5.5 L Albumin 2.2 L Globulin 3.3 Albumin/Globulin Ratio 0.7 L Stool Occult Blood Assessment & Plan (1) Acute cholecystitis Assessment and Plan: 51 year old male with pmhx of alcoholism with abdomen U/S showing: partially distended gallbladder with wall thickening, pericholecystic fluid and minimal sludge, suggest possible acalculous cholecystitis Plan: Stabilize H/H Possible surgical intervention when H/H is stable Continue medical management Discussed with Dr. Zamora Status: Acute
[2017-04-12] MEDS ORDERED: Ferric Sodium Gluconat Complex 62.5 mg/5 ml Vial IVPB ONE (17:30)
[2017-04-12] MEDS: Piperacillin/Tazobact 3.375 GM in Sodium Chloride 100 ML IVPB SCH (19:39)
[2017-04-13] MEDS: Piperacillin/Tazobact 3.375 GM in Sodium Chloride 100 ML IVPB SCH ×4 (03:52→20:25)
[2017-04-13 07:46] LABS: BASO % 0.7 % (0.0-2.0); HEMATOCRIT 27.7 % (35.0-51.0); LYMPH # 1.6 K/uL (1.0-4.3); LYMPH % 30.3 % (20.0-40.0); MEAN CELL VOLUME 93.9 fL (80.0-94.0); MEAN CORPUSCULAR HEMOGLOBIN 31.4 pg (27.0-31.0); MEAN CORPUSCULAR HGB CONC 33.4 g/dL (33.0-37.0); MEAN PLATELET VOLUME 9.9 fL (7.2-11.7); MONO # 0.8 K/uL (0.0-0.8); MONO % 15.8 % (0.0-10.0); NRBC % 0.1 % (0.0-2.0); RED CELL DISTRIBUTION WIDTH 17.7 % (11.5-14.5); WHITE BLOOD COUNT 5.4 K/uL (4.8-10.8)
[2017-04-13 08:39] LABS: ALB/GLOB RATIO 0.6 (1.0-2.1); ALKALINE PHOSPHATASE 45 U/L (38-126); ALT/SGPT 33 U/L (21-72); AST/SGOT 40 U/L (17-59); BILIRUBIN,TOTAL 1.4 mg/dL (0.2-1.3); BLOOD UREA NITROGEN 37 mg/dL (9-20); CALCIUM 7.3 mg/dl (8.6-10.4); CARBON DIOXIDE 19 mmol/L (22-30); CHLORIDE 114 mmol/L (98-107); GFR AFRICAN-AMERICAN > 60; GLUCOSE,RANDOM 98 mg/dL (75-110); POTASSIUM 5.3 mmol/L (3.6-5.2); SODIUM 138 mmol/L (132-148); TOTAL PROTEIN 5.4 g/dL (6.3-8.3)
[2017-04-13] MEDS ORDERED: Pantoprazole 40 mg EC Tab PO SCH (10:00)
--- NOTE | 2017-04-13 13:20 | CP.PCM.PN ---
<Shiraz Cha - Last Filed: 04/13/17 13:22> Subjective - Date & Time of Evaluation Date of Evaluation: 04/13/17 Time of Evaluation: 13:18 - Subjective Subjective: PGY1 Note for Dr. Martinez HPI: Patient was seen and examined at bedside. Resting comfortably in NAD. Patient denies any issues overnight and is otherwise without complaints at this time. His dizziness/lightheadedness has resolved. He has been passing urine and BM without any dysuria, hematuria, hematochezia or melena. Patient denies any signs of chest pain, SOB, n/v/d, constipation, abdominal pain or leg pain. Discussed at length for current plan for surgery today. Patient agrees with this plan and management. No other complaints are noted at this time. Objective - Vital Signs/Intake and Output Vital Signs (last 24 hours): Temp Pulse Resp BP Pulse Ox 98.3 F 82 20 141/82 99 04/13/17 08:44 04/13/17 08:44 04/13/17 08:44 04/13/17 08:44 04/13/17 08:44 Intake and Output: 04/13/17 04/13/17 06:59 18:59 Intake Total 1145 Balance 1145 - Medications Medications: Current Medications Acetaminophen (Tylenol 325mg Tab) 650 mg PO ONCE PRN PRN Reason: Allergy symptoms Last Admin: 04/12/17 23:54 Dose: 650 mg Diphenhydramine HCl (Benadryl) 25 mg PO ONCE PRN PRN Reason: Allergy symptoms Last Admin: 04/12/17 23:54 Dose: 25 mg Sodium Bicarbonate 100 meq/ (Sodium Chloride) 1,100 mls @ 65 mls/hr IV .[id number] [facility] Last Admin: 04/12/17 22:29 Dose: 65 mls/hr Piperacillin Sod/Tazobactam (Sod 3.375 gm/ Sodium Chloride) 100 mls @ 200 mls/ hr IVPB Q6H [facility] Last Admin: 04/13/17 07:30 Dose: 200 mls/hr Sodium Bicarbonate 100 meq/ (Sodium Chloride) 1,100 mls @ 65 mls/hr IV .[id number] [facility] Pantoprazole Sodium (Protonix Inj) 40 mg IVP DAILY [facility] Last Admin: 04/13/17 10:42 Dose: 40 mg - Labs Labs: 04/13/17 07:33 04/13/17 07:33 PT 12.9 SECONDS (9.7-12.2) H 04/09/17 02:12 INR 1.2 04/09/17 02:12 - Constitutional Appears: Well, Non-toxic, No Acute Distress - Head Exam Head Exam: ATRAUMATIC, NORMAL INSPECTION - Eye Exam Eye Exam: EOMI. absent: Conjunctival injection, Periorbital swelling, Periorbital tenderness - ENT Exam ENT Exam: Mucous Membranes Moist - Respiratory Exam Respiratory Exam: Clear to Ausculation Bilateral. absent: Accessory Muscle Use , Rhonchi, Wheezes - Cardiovascular Exam Cardiovascular Exam: REGULAR RHYTHM, RRR. absent: Bradycardia, Tachycardia, JVD , Murmur - GI/Abdominal Exam GI & Abdominal Exam: Soft, Tenderness (+ Delano sign), Normal Bowel Sounds. absent: Distended, Firm - Neurological Exam Neurological Exam: Alert, Awake, Oriented x3 - Psychiatric Exam Psychiatric exam: Normal Affect, Normal Mood - Skin Skin Exam: Dry, Intact, Normal Color, Warm Assessment and Plan - Assessment and Plan (Free Text) Assessment: Chronic Alcoholism Anemia * Secondary to GI bleed secondary to Alcoholism/tobacco use * EGD: Erosive Gastropathy with no active bleeding * H/H stable at 9.11/28 * Transfuse if Hgb drops below 8 Acute Cholecystitis * General Surgery ([facility]) waiting for H/H stable for surgery Nonanion Gap Metabolic Acidosis * Bicarb improving * Continue 1/2 NS + 2 amps Bicarb @ 65 Hyperkalemia * K = 5.3 * Continue 1/2 NS + 2 amps Bicarb @ 65 Tachycardia - Resolved Elevated LFTs * Tbili = 1.4 Hyponatremia - Resolved Elevated CEA * Needs Outpatient colonoscopy to workup anemia and elevated CEA B/L Upper Lung Nodules * Needs outpatient CT to follow Epistaxis - Resolved * Minimal bleeding, did not saturate 4x4 * Stopped spontaneously Prophylaxis * Pantoprazole 30mg PO QD * Ambulate/OOB 04/09/17: Patient transfused 2 units of PRBCs. After the first transfusion, patient was reexamined and reported that he felt much better since this morning. F/u repeat CBC after 2nd transfusion. 04/11/17: Patient Hgb dropped to 7.6 and was tachycardic, transfused 1 unit PRBC, Contacted GI ([facility]) and they deem it necessary to do an EGD in the AM to determine source of blood loss. 04/12/17: Patient has a Abdominal US with pericholecystic fluid and a thickened wall which may suggest acalculous cholecystitis. EGD showed erosive gastropathy with no active or recent bleed. 04/13/17: Administered 1/2 NS with Bicarb @ 65 to correct metabolic acidosis <Priyank Martinez - Last Filed: 04/13/17 19:35> Objective - Vital Signs/Intake and Output Vital Signs (last 24 hours): Temp Pulse Resp BP Pulse Ox 98.7 F 91 H 18 132/81 98 04/13/17 16:00 04/13/17 16:00 04/13/17 16:00 04/13/17 16:00 04/13/17 16:00 - Medications Medications: Current Medications Acetaminophen (Tylenol 325mg Tab) 650 mg PO ONCE PRN PRN Reason: Allergy symptoms Last Admin: 04/12/17 23:54 Dose: 650 mg Diphenhydramine HCl (Benadryl) 25 mg PO ONCE PRN PRN Reason: Allergy symptoms Last Admin: 04/12/17 23:54 Dose: 25 mg Piperacillin Sod/Tazobactam (Sod 3.375 gm/ Sodium Chloride) 100 mls @ 200 mls/ hr IVPB Q6H [facility] Last Admin: 04/13/17 13:30 Dose: 200 mls/hr Sodium Bicarbonate 100 meq/ (Sodium Chloride) 1,100 mls @ 65 mls/hr IV .[id number] [facility] Last Admin: 04/13/17 14:00 Dose: 65 mls/hr Pantoprazole Sodium (Protonix Inj) 40 mg IVP DAILY [facility] Last Admin: 04/13/17 10:42 Dose: 40 mg - Labs Labs: 04/13/17 07:33 04/13/17 07:33 PT 12.9 SECONDS (9.7-12.2) H 04/09/17 02:12 INR 1.2 04/09/17 02:12 Attending/Attestation - Attestation I have personally seen and examined this patient.: Yes I have fully participated in the care of the patient.: Yes I have reviewed all pertinent clinical information, including history, physical exam and plan: Yes Notes (Text): 04/13/17 19:27 Patient was seen and examined at 8 :45 AM 04/13/17. Exam, Assessment and Plan were thoroughly discussed with Resident. In addition to the above on exam: GI: BSx4 are reduced, Soft, ND, (+)Tenderness RUQ with POSITIVE NEAL'S Sign today Assessments: Anemia likely secondary to suspected Upper GI Bleed secondary to history of Alocohl/Tobacco use: Upper EGD by GI Dr. Diez showed Erosive Gastropathy and the biopsies will need to be followed up. Patient was transfused an additional unit of PRBC on 04/12/17 and the HgB/Hct are currently stable Acute Cholecystitis: Abdominal U/S shows evidence of this. I spoke with Surgeon Dr. Zamora and explained to him my findings on exam today and Dr. Zamora will take patient to the OR on Monday04/17/17. Zosyn 3.375 gm IV Q6H. Nonanion Gap Metabolic Acidosis: as per ABG. Could be secondary to the Acute Cholecystitis/Bacteremia. F/U blood culture. Improved with 1/2 NS with 2 AMPs of HCO3 @ 65 ml/hour and this will be continued for now. Hyperkalemia: the 1/2 NS with 2 AMPS HCO3 will help with this Hx Alcoholism Hyponatremia: resolved Elevated LFTs: resolved Tachycardia: likely secondary to the anemia Elevated CEA: explained at length to patient that he will require a Colonoscopy to rule out colonic mass. B/L Upper Lung Lobe Nodules: will need follow up CT Chest as outpatient in 6 months. Priyank Martinez D.O. 04/13/17 19:32
--- NOTE | 2017-04-13 14:10 | CP.PCM.PN ---
Subjective - Date & Time of Evaluation Date of Evaluation: 04/13/17 Time of Evaluation: 10:00 - Subjective Subjective: SURGERY NOTE FOR DR. DE LA GARZA 51M seen and examined at bedside. Patient just finished lunch. Continues to deny pain, nausea, vomiting, fevers or chills. Tolerating diet. Objective - Vital Signs/Intake and Output Vital Signs (last 24 hours): Temp Pulse Resp BP Pulse Ox 98.3 F 82 20 141/82 99 04/13/17 08:44 04/13/17 08:44 04/13/17 08:44 04/13/17 08:44 04/13/17 08:44 Intake and Output: 04/13/17 04/13/17 06:59 18:59 Intake Total 1145 Balance 1145 - Medications Medications: Current Medications Acetaminophen (Tylenol 325mg Tab) 650 mg PO ONCE PRN PRN Reason: Allergy symptoms Last Admin: 04/12/17 23:54 Dose: 650 mg Diphenhydramine HCl (Benadryl) 25 mg PO ONCE PRN PRN Reason: Allergy symptoms Last Admin: 04/12/17 23:54 Dose: 25 mg Piperacillin Sod/Tazobactam (Sod 3.375 gm/ Sodium Chloride) 100 mls @ 200 mls/ hr IVPB Q6H [facility] Last Admin: 04/13/17 13:30 Dose: 200 mls/hr Sodium Bicarbonate 100 meq/ (Sodium Chloride) 1,100 mls @ 65 mls/hr IV .[id number] [facility] Pantoprazole Sodium (Protonix Inj) 40 mg IVP DAILY [facility] Last Admin: 04/13/17 10:42 Dose: 40 mg - Labs Labs: 04/13/17 07:33 04/13/17 07:33 PT 12.9 SECONDS (9.7-12.2) H 04/09/17 02:12 INR 1.2 04/09/17 02:12 - Constitutional Appears: Non-toxic, No Acute Distress - Head Exam Head Exam: ATRAUMATIC - Respiratory Exam Respiratory Exam: Clear to Ausculation Bilateral, NORMAL BREATHING PATTERN - Cardiovascular Exam Cardiovascular Exam: REGULAR RHYTHM, +S1, +S2 - GI/Abdominal Exam GI & Abdominal Exam: Soft. absent: Distended, Firm, Guarding, Rigid, Tenderness , Rebound Additional comments: negative murphys sign - Neurological Exam Neurological Exam: Alert, Awake Assessment and Plan - Assessment and Plan (Free Text) Assessment: 51M w history of alcoholism, consult for abdominal ultrasound findings of GB distended, GBW thickening, pericholecystic fluid/sludge Plan: - tentatively OR for Monday [place], PGY2
[2017-04-14] MEDS: Piperacillin/Tazobact 3.375 GM in Sodium Chloride 100 ML IVPB SCH ×4 (01:16→21:11)
--- NOTE | 2017-04-14 06:06 | CP.PCM.PN ---
<Shiraz Cha - Last Filed: 04/14/17 14:27> Subjective - Date & Time of Evaluation Date of Evaluation: 04/14/17 Time of Evaluation: 06:04 - Subjective Subjective: PGY-[address] Martinez HPI: Patient seen and examined at bedside. States he is doing well and has no complaints at this time. Had an extensive conversation on why staying in the hospital is a good idea. He says he has things to do at home including " watering his plants". I told him that because his HgB continues to drop and he has a metabolic alkalosis with impending renal failure as well as a bad gallbladder the best option would be to stay. After a long conversation he agreed with the plan. Denies N/V/D/C/CP/F/SOB. Objective - Vital Signs/Intake and Output Vital Signs (last 24 hours): Temp Pulse Resp BP Pulse Ox 98.7 F 96 H 20 158/89 H 98 04/13/17 23:50 04/14/17 00:00 04/13/17 23:50 04/13/17 23:50 04/13/17 23:50 - Medications Medications: Current Medications Acetaminophen (Tylenol 325mg Tab) 650 mg PO ONCE PRN PRN Reason: Allergy symptoms Last Admin: 04/12/17 23:54 Dose: 650 mg Diphenhydramine HCl (Benadryl) 25 mg PO ONCE PRN PRN Reason: Allergy symptoms Last Admin: 04/12/17 23:54 Dose: 25 mg Piperacillin Sod/Tazobactam (Sod 3.375 gm/ Sodium Chloride) 100 mls @ 200 mls/ hr IVPB Q6H [facility] Last Admin: 04/14/17 01:16 Dose: 200 mls/hr Sodium Bicarbonate 100 meq/ (Sodium Chloride) 1,100 mls @ 65 mls/hr IV .[id number] [facility] Last Admin: 04/13/17 14:00 Dose: 65 mls/hr Pantoprazole Sodium (Protonix Inj) 40 mg IVP DAILY [facility] Last Admin: 04/13/17 10:42 Dose: 40 mg - Labs Labs: 04/13/17 07:33 04/13/17 07:33 PT 12.9 SECONDS (9.7-12.2) H 04/09/17 02:12 INR 1.2 04/09/17 02:12 - Constitutional Appears: Well, Non-toxic, No Acute Distress - Head Exam Head Exam: NORMAL INSPECTION - Eye Exam Eye Exam: EOMI - ENT Exam ENT Exam: Mucous Membranes Moist - Respiratory Exam Respiratory Exam: Clear to Ausculation Bilateral, NORMAL BREATHING PATTERN - Cardiovascular Exam Cardiovascular Exam: REGULAR RHYTHM, RRR - GI/Abdominal Exam GI & Abdominal Exam: Soft, Normal Bowel Sounds. absent: Distended, Guarding, Tenderness - Neurological Exam Neurological Exam: Alert, Awake, Oriented x3 - Psychiatric Exam Psychiatric exam: Normal Affect, Normal Mood - Skin Skin Exam: Dry, Intact, Normal Color, Warm Assessment and Plan - Assessment and Plan (Free Text) Assessment: Chronic Alcoholism Anemia * Secondary to GI bleed secondary to Alcoholism/tobacco use * EGD: Erosive Gastropathy with no active bleeding * F/U bx * H/H dropped to 8.3/24.5 * Transfuse if Hgb drops below 8 * Bleeding scan - No active GI bleed * Consulted GI ([facility]) for possible colonoscopy to determine bleeding source Acute Cholecystitis * General Surgery ([facility]) waiting for H/H stable for surgery * Tentative OR Monday * Zosyn 3.375gm IV Q6H Nonanion Gap Metabolic Acidosis * Possible secondary to Acute guerline/bacteremia * F/U blood cultures * Bicarb = 20 Hyperkalemia - RESOLVED * K = 4.5 Tachycardia * Likely secondary to anemia Elevated LFTs * Tbili = 1.4 Hyponatremia - Resolved Elevated CEA * Needs colonoscopy to workup anemia and elevated CEA B/L Upper Lung Nodules * Needs outpatient CT to follow in 6 months Epistaxis - RESOLVED * Minimal bleeding, did not saturate 4x4 * Stopped spontaneously Prophylaxis * Pantoprazole 30mg PO QD * Ambulate/OOB 04/09/17: Patient transfused 2 units of PRBCs. After the first transfusion, patient was reexamined and reported that he felt much better since this morning. F/u repeat CBC after 2nd transfusion. 04/11/17: Patient Hgb dropped to 7.6 and was tachycardic, transfused 1 unit PRBC, Contacted GI ([facility]) and they deem it necessary to do an EGD in the AM to determine source of blood loss. 04/12/17: Patient has a Abdominal US with pericholecystic fluid and a thickened wall which may suggest acalculous cholecystitis. EGD showed erosive gastropathy with no active or recent bleed. 04/13/17: Administered 1/2 NS with Bicarb @ 65 to correct metabolic acidosis 04/14/17: HgB dropped to 8.3. Did a NM bleeding scan that showed no active GI bleed. Contacted Dr. Diez for reccs. Will F/U <Priyank Martinez - Last Filed: 04/14/17 19:19> Objective - Vital Signs/Intake and Output Vital Signs (last 24 hours): Temp Pulse Resp BP Pulse Ox 98.6 F 98 H 20 145/84 98 04/14/17 16:00 04/14/17 16:00 04/14/17 16:00 04/14/17 16:00 04/14/17 16:00 - Medications Medications: Current Medications Acetaminophen (Tylenol 325mg Tab) 650 mg PO ONCE PRN PRN Reason: Allergy symptoms Last Admin: 04/12/17 23:54 Dose: 650 mg Diphenhydramine HCl (Benadryl) 25 mg PO ONCE PRN PRN Reason: Allergy symptoms Last Admin: 04/12/17 23:54 Dose: 25 mg Piperacillin Sod/Tazobactam (Sod 3.375 gm/ Sodium Chloride) 100 mls @ 200 mls/ hr IVPB Q6H [facility] Last Admin: 04/14/17 13:30 Dose: 200 mls/hr Sodium Bicarbonate 100 meq/ (Sodium Chloride) 1,100 mls @ 65 mls/hr IV .[id number] [facility] Pantoprazole Sodium (Protonix Inj) 40 mg IVP DAILY [facility] Last Admin: 04/14/17 14:26 Dose: 40 mg - Labs Labs: 04/14/17 07:08 04/14/17 07:08 PT 12.9 SECONDS (9.7-12.2) H 04/09/17 02:12 INR 1.2 04/09/17 02:12 Attending/Attestation - Attestation I have personally seen and examined this patient.: Yes I have fully participated in the care of the patient.: Yes I have reviewed all pertinent clinical information, including history, physical exam and plan: Yes Notes (Text): 04/14/17 19:13 Patient was seen and examined at 9:40 AM 04/14/17. Exam, Assessment and Plan were thoroughly discussed with Resident. In addition to the above on exam: GI: BSx4 are reduced, Soft, ND, NO longer experiencing Raango's Sign in RUQ Assessments: Anemia likely secondary to suspected Upper GI Bleed secondary to history of Alocohl/Tobacco use: Upper EGD by GI Dr. Diez showed Erosive Gastropathy and the biopsies will need to be followed up. Patient was transfused an additional unit of PRBC on 04/12/17. HgB/Hct have dropped from 9.3 to [address] Diez was notified to request Colonoscopy considering this drop and the elevated CEA but recommendations from him were still have outpatient Colonoscopy. A GI Bleeding Scan was performed 04/14/17 and this did not show any GI Bleeding. 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 Considering this finding and the continued drop in HgB/Hct I have spoken with Probate Judge/Oncologist Dr. Johny Khan for his opinion and he will see patient on 04/15/17 after review of records. Acute Cholecystitis: Abdominal U/S shows evidence of this. I spoke with Surgeon Dr. Zamora and explained to him my findings on exam today and Dr. Zamora will take patient to the OR on Monday04/17/17. Zosyn 3.375 gm IV Q6H. Nonanion Gap Metabolic Acidosis: as per ABG. Could be secondary to the Acute Cholecystitis/Bacteremia. F/U blood culture. Improved with 1/2 NS with 2 AMPs of HCO3 @ 65 ml/hour and this will be continued for now. Hyperkalemia: the 1/2 NS with 2 AMPS HCO3 will help with this Hx Alcoholism Hyponatremia: resolved Elevated LFTs: resolved Tachycardia: likely secondary to the anemia Elevated CEA: explained at length to patient that he will require a Colonoscopy to rule out colonic mass. Please also see above B/L Upper Lung Lobe Nodules: will need follow up CT Chest as outpatient in 6 months. Priyank Martinez D.O.
[2017-04-14 07:25] LABS: BASO % 0.7 % (0.0-2.0); HEMATOCRIT 24.5 % (35.0-51.0); LYMPH # 1.7 K/uL (1.0-4.3); LYMPH % 34.3 % (20.0-40.0); MEAN CELL VOLUME 93.9 fL (80.0-94.0); MEAN CORPUSCULAR HEMOGLOBIN 31.7 pg (27.0-31.0); MEAN CORPUSCULAR HGB CONC 33.7 g/dL (33.0-37.0); MEAN PLATELET VOLUME 9.6 fL (7.2-11.7); MONO # 0.8 K/uL (0.0-0.8); MONO % 15.6 % (0.0-10.0); NRBC % 0.1 % (0.0-2.0); RED CELL DISTRIBUTION WIDTH 20.6 % (11.5-14.5); WHITE BLOOD COUNT 4.9 K/uL (4.8-10.8)
[2017-04-14 07:40] LABS: CHLORIDE 113 mmol/L (98-107); POTASSIUM 4.5 mmol/L (3.6-5.2); SODIUM 137 mmol/L (132-148)
[2017-04-14 07:42] LABS: CARBON DIOXIDE 20 mmol/L (22-30); GFR AFRICAN-AMERICAN > 60
[2017-04-14 07:43] LABS: ALB/GLOB RATIO 0.7 (1.0-2.1); ALKALINE PHOSPHATASE 41 U/L (38-126); ALT/SGPT 36 U/L (21-72); AST/SGOT 33 U/L (17-59); BLOOD UREA NITROGEN 32 mg/dL (9-20); GLUCOSE,RANDOM 87 mg/dL (75-110)
--- NOTE | 2017-04-14 08:46 | CP.PCM.PN ---
Subjective - Date & Time of Evaluation Date of Evaluation: 04/14/17 Time of Evaluation: 06:45 - Subjective Subjective: Patient seen and examined this morning. No complaints. Denies n/v/d, abdominal pain. Hgb today is 8.6. No acute events over night. Objective - Vital Signs/Intake and Output Vital Signs (last 24 hours): Temp Pulse Resp BP Pulse Ox 98.7 F 96 H 20 158/89 H 98 04/13/17 23:50 04/14/17 00:00 04/13/17 23:50 04/13/17 23:50 04/13/17 23:50 Intake and Output: 04/14/17 04/14/17 06:59 18:59 Intake Total 880 Balance 880 - Medications Medications: Current Medications Acetaminophen (Tylenol 325mg Tab) 650 mg PO ONCE PRN PRN Reason: Allergy symptoms Last Admin: 04/12/17 23:54 Dose: 650 mg Diphenhydramine HCl (Benadryl) 25 mg PO ONCE PRN PRN Reason: Allergy symptoms Last Admin: 04/12/17 23:54 Dose: 25 mg Piperacillin Sod/Tazobactam (Sod 3.375 gm/ Sodium Chloride) 100 mls @ 200 mls/ hr IVPB Q6H [facility] Last Admin: 04/14/17 06:36 Dose: 200 mls/hr Sodium Bicarbonate 100 meq/ (Sodium Chloride) 1,100 mls @ 65 mls/hr IV .[id number] [facility] Last Admin: 04/13/17 14:00 Dose: 65 mls/hr Pantoprazole Sodium (Protonix Inj) 40 mg IVP DAILY [facility] Last Admin: 04/13/17 10:42 Dose: 40 mg - Labs Labs: 04/14/17 07:08 04/14/17 07:08 PT 12.9 SECONDS (9.7-12.2) H 04/09/17 02:12 INR 1.2 04/09/17 02:12 - Constitutional Appears: No Acute Distress - Head Exam Head Exam: NORMOCEPHALIC - Eye Exam Eye Exam: Normal appearance - ENT Exam ENT Exam: Mucous Membranes Moist - Respiratory Exam Respiratory Exam: NORMAL BREATHING PATTERN - Cardiovascular Exam Cardiovascular Exam: +S1, +S2 - GI/Abdominal Exam GI & Abdominal Exam: Soft. absent: Distended, Firm, Guarding, Tenderness - Neurological Exam Neurological Exam: Alert, Awake, Oriented x3 - Psychiatric Exam Psychiatric exam: Normal Mood - Skin Skin Exam: Dry, Intact, Warm Assessment and Plan - Assessment and Plan (Free Text) Assessment: 51M w/ ultrasound findings suggestive of acalculous cholecystitis -Scheduled for OR Monday @ 11 AM -F/u AM labs -Pre-op Monday -Medical management per primary team -D/w Dr. Sera Groves PGY-2
--- NOTE | 2017-04-14 14:01 | NM ---
PROCEDURE: Nuclear medicine gastrointestinal bleeding scan. HISTORY: continued drop in hgb/hct despite transfusions COMPARISON: None available. TECHNIQUE: 4 cc of patient blood was withdrawn and mixed with 21 mCi of technetium ultra tagged. Images of the abdomen and pelvis were obtained in the anterior and posterior projection at 1 min intervals over a period of 45 min. FINDINGS: No abnormal extravasation of tracer was observed throughout the exam to indicate active bleeding within or outside the gastrointestinal tract. Physiologic activity was seen in the heart, liver, spleen and blood vessels. IMPRESSION: No evidence of active gastrointestinal bleeding.
[2017-04-14] MEDS ORDERED: Iodixanol 320 MG/ML 100 ML BOTTLE IV ONE (16:06)
--- NOTE | 2017-04-14 17:07 | CT ---
PROCEDURE: CT Abdomen and Pelvis with contrast HISTORY: Suspected colonic mass, Elevated CEA COMPARISON: Ultrasound abdomen 04/11/2017 TECHNIQUE: Contrast dose: 100 mL Visipaque 320 Radiation dose: Total exam DLP = 386.72 mGy-cm. This CT exam was performed using one or more of the following dose reduction techniques: Automated exposure control, adjustment of the mA and/or kV according to patient size, and/or use of iterative reconstruction technique. FINDINGS: LOWER THORAX: Small bilateral pleural effusion. Bilateral lower lobe compressive atelectasis. LIVER: Hepatomegaly. Smooth contour. No mass. No biliary dilatation. GALLBLADDER AND BILE DUCTS: The gallbladder is contracted. The wall is thickened and there may be trace pericholecystic fluid. There are no calcified gallstones appreciated. The findings are nonspecific. PANCREAS: Unremarkable. No gross lesion or ductal dilatation. SPLEEN: Mild splenomegaly. The spleen measures 13.9 cm in greatest dimension. There are linear areas of diminished attenuation about the periphery of the spleen oriented perpendicular to the splenic capsule. These are atypical for splenic metastases. These have an appearance suggestive of splenic laceration although there is no history of trauma provided and there is no evidence of hemoperitoneum. Ultrasound of 04/11/2017 demonstrated only a solitary vascular lesion at the periphery of the spleen. Uncertain significance. ADRENALS: Unremarkable. No mass. KIDNEYS AND URETERS: Unremarkable. No hydronephrosis. No solid mass. VASCULATURE: Unremarkable. No aortic aneurysm. BOWEL: No evidence of bowel obstruction. Diverticulosis of the ascending colon without evidence of diverticulitis. Trace ascites. APPENDIX: Normal appendix. PERITONEUM: Minimal ascites. LYMPH NODES: Unremarkable. No enlarged lymph nodes. BLADDER: Poorly distended. Grossly unremarkable. REPRODUCTIVE: Normal prostate BONES: No acute fracture. OTHER FINDINGS: None. IMPRESSION: Small bilateral pleural effusion with bilateral lower lobe compressive atelectasis. Mild splenomegaly with atypical appearance of spleen, uncertain significance. The appearance is suggestive of splenic lacerations although the number of such lesions and the absence of hemoperitoneum or history of trauma weighs against this. Consider atypical splenic metastasis. Hepatomegaly. Trace ascites.
--- NOTE | 2017-04-14 19:15 | CP.PCM.PN ---
Subjective - Date & Time of Evaluation Date of Evaluation: 04/14/17 Time of Evaluation: 19:13 - Subjective Subjective: anemia is still a mystery. patient though is scheduled forlap guerline monday. will tranfuse if necessary Objective - Vital Signs/Intake and Output Vital Signs (last 24 hours): Temp Pulse Resp BP Pulse Ox 98.6 F 98 H 20 145/84 98 04/14/17 16:00 04/14/17 16:00 04/14/17 16:00 04/14/17 16:00 04/14/17 16:00 - Medications Medications: Current Medications Acetaminophen (Tylenol 325mg Tab) 650 mg PO ONCE PRN PRN Reason: Allergy symptoms Last Admin: 04/12/17 23:54 Dose: 650 mg Diphenhydramine HCl (Benadryl) 25 mg PO ONCE PRN PRN Reason: Allergy symptoms Last Admin: 04/12/17 23:54 Dose: 25 mg Piperacillin Sod/Tazobactam (Sod 3.375 gm/ Sodium Chloride) 100 mls @ 200 mls/ hr IVPB Q6H [facility] Last Admin: 04/14/17 13:30 Dose: 200 mls/hr Sodium Bicarbonate 100 meq/ (Sodium Chloride) 1,100 mls @ 65 mls/hr IV .[id number] [facility] Pantoprazole Sodium (Protonix Inj) 40 mg IVP DAILY [facility] Last Admin: 04/14/17 14:26 Dose: 40 mg - Labs Labs: 04/14/17 07:08 04/14/17 07:08 PT 12.9 SECONDS (9.7-12.2) H 04/09/17 02:12 INR 1.2 04/09/17 02:12
[2017-04-14 20:06] LABS: BASO % 0.6 % (0.0-2.0); LYMPH # 2.2 K/uL (1.0-4.3); LYMPH % 33.8 % (20.0-40.0); MEAN CELL VOLUME 94.1 fL (80.0-94.0); MEAN PLATELET VOLUME 9.5 fL (7.2-11.7); MONO # 0.9 K/uL (0.0-0.8); MONO % 14.3 % (0.0-10.0); RED CELL DISTRIBUTION WIDTH 20.3 % (11.5-14.5); WHITE BLOOD COUNT 6.6 K/uL (4.8-10.8)
[2017-04-15] MEDS: Piperacillin/Tazobact 3.375 GM in Sodium Chloride 100 ML IVPB SCH ×4 (00:55→20:59)
--- NOTE | 2017-04-15 02:36 | CP.PCM.PN ---
Addendum entered and electronically signed by Daniel Castro DO 04/15/17 02:55 : Assessment and Plan Chronic Alcoholism Anemia * Secondary to GI bleed secondary to Alcoholism/tobacco use * EGD: Erosive Gastropathy with no active bleeding * H/H stabilized at 8.9/26.0 * Transfuse if Hgb drops below 8 * Bleeding scan - No active GI bleed * Consulted GI ([facility]) for possible colonoscopy to determine bleeding source Acute Cholecystitis * General Surgery ([facility]) waiting for H/H stable for surgery * Tentative OR Monday * Zosyn 3.375gm IV Q6H Nonanion Gap Metabolic Acidosis * Possible secondary to Acute guerline/bacteremia * F/U blood cultures * Bicarb = 20 Hyperkalemia - RESOLVED * K = 4.5 Tachycardia * Likely secondary to anemia Elevated LFTs * Tbili = 1.4 Hyponatremia - Resolved Elevated CEA * Needs colonoscopy to workup anemia and elevated CEA B/L Upper Lung Nodules * Needs outpatient CT to follow in 6 months Epistaxis - RESOLVED * Minimal bleeding, did not saturate 4x4 * Stopped spontaneously Prophylaxis * Pantoprazole 30mg PO QD * Ambulate/OOB 04/09/17: Patient transfused 2 units of PRBCs. After the first transfusion, patient was reexamined and reported that he felt much better since this morning. F/u repeat CBC after 2nd transfusion. 04/11/17: Patient Hgb dropped to 7.6 and was tachycardic, transfused 1 unit PRBC, Contacted GI ([facility]) and they deem it necessary to do an EGD in the AM to determine source of blood loss. 04/12/17: Patient has a Abdominal US with pericholecystic fluid and a thickened wall which may suggest acalculous cholecystitis. EGD showed erosive gastropathy with no active or recent bleed. 04/13/17: Administered 1/2 NS with Bicarb @ 65 to correct metabolic acidosis 04/14/17: Hgb dropped to 8.3 on AM labs. Hgb stabilized at 8.9 on PM labs. Did a NM bleeding scan that showed no active GI bleed. Will f/u with Dr. Diez for reccs. Original Note: <Daniel Castro - Last Filed: 04/15/17 02:30> Subjective - Date & Time of Evaluation Date of Evaluation: 04/15/17 Time of Evaluation: 02:31 - Subjective Subjective: PGY1 Medicine Note for Dr. Francesca Martinez Patient seen and examined at bedside overnight. Patient states that he is feeling well. Patient says he has noticed his legs being a little more swollen than usual. Otherwise the patient has no complaints. Denies f/c, n/v, d/c, sob or cp. Objective - Vital Signs/Intake and Output Vital Signs (last 24 hours): Temp Pulse Resp BP Pulse Ox 99 F 100 H 20 141/85 96 04/14/17 23:45 04/14/17 23:45 04/14/17 23:45 04/14/17 23:45 04/14/17 23:45 - Medications Medications: Current Medications Acetaminophen (Tylenol 325mg Tab) 650 mg PO ONCE PRN PRN Reason: Allergy symptoms Last Admin: 04/12/17 23:54 Dose: 650 mg Diphenhydramine HCl (Benadryl) 25 mg PO ONCE PRN PRN Reason: Allergy symptoms Last Admin: 04/12/17 23:54 Dose: 25 mg Piperacillin Sod/Tazobactam (Sod 3.375 gm/ Sodium Chloride) 100 mls @ 200 mls/ hr IVPB Q6H [facility] Last Admin: 04/15/17 00:55 Dose: 200 mls/hr Sodium Bicarbonate 100 meq/ (Sodium Chloride) 1,100 mls @ 65 mls/hr IV .[id number] [facility] Last Admin: 04/15/17 00:56 Dose: 65 mls/hr Pantoprazole Sodium (Protonix Inj) 40 mg IVP DAILY [facility] Last Admin: 04/14/17 14:26 Dose: 40 mg - Labs Labs: 04/14/17 19:57 04/14/17 07:08 PT 12.9 SECONDS (9.7-12.2) H 04/09/17 02:12 INR 1.2 04/09/17 02:12 - Constitutional Appears: Non-toxic, No Acute Distress - Head Exam Head Exam: ATRAUMATIC, NORMOCEPHALIC - ENT Exam ENT Exam: Mucous Membranes Moist - Respiratory Exam Respiratory Exam: Clear to Ausculation Bilateral, NORMAL BREATHING PATTERN. absent: Accessory Muscle Use, Respiratory Distress - Cardiovascular Exam Cardiovascular Exam: REGULAR RHYTHM, +S1, +S2 - GI/Abdominal Exam GI & Abdominal Exam: Soft, Tenderness (LUQ), Normal Bowel Sounds. absent: Distended, Guarding - Extremities Exam Extremities Exam: Pedal Edema. absent: Tenderness Additional comments: LE non pitting edema b/l - Neurological Exam Neurological Exam: Alert, Awake, Oriented x3 - Psychiatric Exam Psychiatric exam: Normal Affect, Normal Mood - Skin Skin Exam: Dry, Normal Color, Warm <Martinez,Priyank J - Last Filed: 04/15/17 19:16> Objective - Vital Signs/Intake and Output Vital Signs (last 24 hours): Temp Pulse Resp BP Pulse Ox 98.9 F 111 H 20 158/93 H 97 04/15/17 17:57 04/15/17 17:57 04/15/17 17:57 04/15/17 17:57 04/15/17 17:57 - Medications Medications: Current Medications Acetaminophen (Tylenol 325mg Tab) 650 mg PO ONCE PRN PRN Reason: Allergy symptoms Last Admin: 04/12/17 23:54 Dose: 650 mg Diphenhydramine HCl (Benadryl) 25 mg PO ONCE PRN PRN Reason: Allergy symptoms Last Admin: 04/12/17 23:54 Dose: 25 mg Piperacillin Sod/Tazobactam (Sod 3.375 gm/ Sodium Chloride) 100 mls @ 200 mls/ hr IVPB Q6H [facility] Last Admin: 04/15/17 13:30 Dose: 200 mls/hr Pantoprazole Sodium (Protonix Inj) 40 mg IVP DAILY [facility] Last Admin: 04/15/17 09:30 Dose: 40 mg - Labs Labs: 04/15/17 14:04 04/15/17 06:46 PT 11.5 SECONDS (9.7-12.2) 04/15/17 14:04 INR 1.0 04/15/17 14:04 APTT 32 SECONDS (21-34) 04/15/17 14:04 Attending/Attestation - Attestation I have personally seen and examined this patient.: Yes I have fully participated in the care of the patient.: Yes I have reviewed all pertinent clinical information, including history, physical exam and plan: Yes Notes (Text): 04/15/17 19:11 Patient was seen and examined at 9:30 AM 04/15/17. ROS: Christiano of the legs NO cough/wheezing/SOB/CP/lightheadedness/dizziness In addition to the above on exam: GI: BSx4 are reduced, Soft, ND, NO longer experiencing Arango's Sign in RUQ Ext: nonpitting edema in the feet upto mid tibia Assessments: Anemia likely secondary to suspected Upper GI Bleed secondary to history of Alocohl/Tobacco use: Upper EGD by GI Dr. Diez showed Erosive Gastropathy and the biopsies will need to be followed up. Patient was transfused an additional unit of PRBC on 04/12/17. HgB/Hct have dropped from 9.3 to [address] Diez was notified to request Colonoscopy considering this drop and the elevated CEA but recommendations from him were still have outpatient Colonoscopy. A GI Bleeding Scan was performed 04/14/17 and this did not show any GI Bleeding. 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 Considering this finding and the continued drop in HgB/Hct I have spoken with Water [employer] Captain/Oncologist Dr. Johny Khan for his opinion and he will see patient on 04/15/17 after review of records. Acute Cholecystitis: Abdominal U/S shows evidence of this. I spoke with Surgeon Dr. Zamora and explained to him my findings on exam today and Dr. Zamora will take patient to the OR on Monday04/17/17. Zosyn 3.375 gm IV Q6H. F/U Chest X Ray PA/Lateral and EKG for morning 04/16/17 Nonanion Gap Metabolic Acidosis: as per ABG. Could be secondary to the Acute Cholecystitis/Bacteremia. F/U blood culture. Improved/Resolved with 1/2 NS with 2 AMPs of HCO3 @ 65 ml/hour and this was discontinued this morning 04/15/17 (and is the likely cause of the nonpitting edema of the legs mentioned in the exam above) Hyperkalemia: Improved/Resolved with the 1/2 NS with 2 AMPS HCO3 Hx Alcoholism Hyponatremia: resolved Elevated LFTs: resolved Tachycardia: likely secondary to the anemia Elevated CEA: explained at length to patient that he will require a Colonoscopy to rule out colonic mass. Please also see above B/L Upper Lung Lobe Nodules: will need follow up CT Chest as outpatient in 6 months.
[2017-04-15 06:56] LABS: BASO % 0.8 % (0.0-2.0); EOS % 0.1 % (0.0-4.0); HEMATOCRIT 23.4 % (35.0-51.0); LYMPH # 1.5 K/uL (1.0-4.3); LYMPH % 27.4 % (20.0-40.0); MEAN CELL VOLUME 93.3 fL (80.0-94.0); MEAN CORPUSCULAR HGB CONC 34.3 g/dL (33.0-37.0); MEAN PLATELET VOLUME 8.9 fL (7.2-11.7); MONO # 0.7 K/uL (0.0-0.8); MONO % 13.7 % (0.0-10.0); RED CELL DISTRIBUTION WIDTH 20.4 % (11.5-14.5); WHITE BLOOD COUNT 5.3 K/uL (4.8-10.8)
[2017-04-15 07:06] LABS: ALKALINE PHOSPHATASE 43 U/L (38-126); ALT/SGPT 32 U/L (21-72); AST/SGOT 30 U/L (17-59); BILIRUBIN,TOTAL 0.9 mg/dL (0.2-1.3); BLOOD UREA NITROGEN 32 mg/dL (9-20); CARBON DIOXIDE 22 mmol/L (22-30); CHLORIDE 109 mmol/L (98-107); GFR AFRICAN-AMERICAN > 60; GLUCOSE,RANDOM 86 mg/dL (75-110); POTASSIUM 4.4 mmol/L (3.6-5.2); SODIUM 136 mmol/L (132-148); TOTAL PROTEIN 4.9 g/dL (6.3-8.3)
[2017-04-15 07:08] LABS: ALB/GLOB RATIO 0.8 (1.0-2.1)
--- NOTE | 2017-04-15 09:45 | CP.PCM.PN ---
Subjective - Date & Time of Evaluation Date of Evaluation: 04/15/17 Time of Evaluation: 06:40 - Subjective Subjective: Pt S&E. NAEO. No complaints. Denies n/v. Passing flatus, having BM. Objective - Vital Signs/Intake and Output Vital Signs (last 24 hours): Temp Pulse Resp BP Pulse Ox 98.8 F 97 H 20 157/93 H 97 04/15/17 08:21 04/15/17 08:21 04/15/17 08:21 04/15/17 08:21 04/15/17 08:21 Intake and Output: 04/15/17 04/15/17 06:59 18:59 Intake Total 820 Balance 820 - Medications Medications: Current Medications Acetaminophen (Tylenol 325mg Tab) 650 mg PO ONCE PRN PRN Reason: Allergy symptoms Last Admin: 04/12/17 23:54 Dose: 650 mg Diphenhydramine HCl (Benadryl) 25 mg PO ONCE PRN PRN Reason: Allergy symptoms Last Admin: 04/12/17 23:54 Dose: 25 mg Piperacillin Sod/Tazobactam (Sod 3.375 gm/ Sodium Chloride) 100 mls @ 200 mls/ hr IVPB Q6H [facility] Last Admin: 04/15/17 06:46 Dose: 200 mls/hr Sodium Bicarbonate 100 meq/ (Sodium Chloride) 1,100 mls @ 65 mls/hr IV .[id number] [facility] Last Admin: 04/15/17 00:56 Dose: 65 mls/hr Pantoprazole Sodium (Protonix Inj) 40 mg IVP DAILY [facility] Last Admin: 04/15/17 09:30 Dose: 40 mg - Labs Labs: 04/15/17 06:46 04/15/17 06:46 PT 12.9 SECONDS (9.7-12.2) H 04/09/17 02:12 INR 1.2 04/09/17 02:12 - Constitutional Appears: No Acute Distress - Head Exam Head Exam: NORMOCEPHALIC - ENT Exam ENT Exam: Mucous Membranes Moist - Respiratory Exam Respiratory Exam: NORMAL BREATHING PATTERN - Cardiovascular Exam Cardiovascular Exam: +S1, +S2 - GI/Abdominal Exam GI & Abdominal Exam: Soft. absent: Tenderness - Neurological Exam Neurological Exam: Alert, Awake, Oriented x3 - Psychiatric Exam Psychiatric exam: Normal Mood - Skin Skin Exam: Dry, Intact, Warm Assessment and Plan - Assessment and Plan (Free Text) Assessment: 51M w/ ultrasound findings suggestive of acalculous cholecystitis -Scheduled for OR Monday @ 11 AM -Pre-op Monday -Medical management per primary team -Patient may need transfusion prior to OR date -D/w Dr. Sera Groves PGY-2
[2017-04-15 14:12] LABS: BASO # 0.1 K/uL (0.0-0.2); BASO % 1.6 % (0.0-2.0); EOS % 0.1 % (0.0-4.0); HEMATOCRIT 26.5 % (35.0-51.0); LYMPH # 1.4 K/uL (1.0-4.3); LYMPH % 25.8 % (20.0-40.0); MEAN CELL VOLUME 94.5 fL (80.0-94.0); MEAN CORPUSCULAR HEMOGLOBIN 31.7 pg (27.0-31.0); MEAN CORPUSCULAR HGB CONC 33.5 g/dL (33.0-37.0); MEAN PLATELET VOLUME 9.4 fL (7.2-11.7); MONO # 0.6 K/uL (0.0-0.8); MONO % 10.5 % (0.0-10.0); RED CELL DISTRIBUTION WIDTH 21.1 % (11.5-14.5); WHITE BLOOD COUNT 5.4 K/uL (4.8-10.8)
--- NOTE | 2017-04-15 17:53 | RAD ---
HISTORY: Preoperative COMPARISON: 04/09/2017. TECHNIQUE: Chest PA and lateral FINDINGS: LUNGS: Bilateral pleural effusions, compressive atelectasis left greater than right. These represent new findings compared to prior chest x-ray. PLEURA: No significant pleural effusion identified. No pneumothorax apparent. CARDIOVASCULAR: Normal. OSSEOUS STRUCTURES: No significant abnormalities. VISUALIZED UPPER ABDOMEN: Normal. OTHER FINDINGS: None. IMPRESSION: Bilateral lower lobe infiltrates and bilateral pleural effusions left greater than right michael thorax.
--- NOTE | 2017-04-15 20:41 | CP.PCM.CON ---
History of Present Illness - History of Present Illness History of Present Illness: 51 year old male with a history of alcoholism, admitted with symptomatic anemia , cholecystitis, and splenomegaly ?splenic lesions. The patient reports to progressive fatigue which prompted him to come to the ER. In the ER, he was found to have a hgb of 5.8. He is s/p PRBC transfusion support and reports to feeling better. An EGD revealed erosive gastropathy. Past medical history: Alcoholism Past surgical history: None Family history: Denies hematologic and oncologic problems Social history: 1ppd x 30 years, 6 pack of beer daily, denies illicit drug use. Allergies: NKA Review of systems: All remaining review of systems including HEENT, cardiovascular, respiratory, gastrointestinal, genitourinary, musculoskeletal, dermatologic, neurologic, and psychiatric are negative unless mentioned in the HPI. Past Patient History - Past Social History Smoking Status: Former Smoker - MUSCULOSKELETAL/RHEUMATOLOGICAL Hx Falls: No - PSYCHIATRIC Hx Substance Use: No - SURGICAL HISTORY Hx Surgeries: No Meds Allergies/Adverse Reactions: Allergies Allergy/AdvReac Type Severity Reaction Status Date / Time No Known Allergies Allergy Unverified 04/09/17 01:47 - Medications Medications: Current Medications Acetaminophen (Tylenol 325mg Tab) 650 mg PO ONCE PRN PRN Reason: Allergy symptoms Last Admin: 04/12/17 23:54 Dose: 650 mg Diphenhydramine HCl (Benadryl) 25 mg PO ONCE PRN PRN Reason: Allergy symptoms Last Admin: 04/12/17 23:54 Dose: 25 mg Piperacillin Sod/Tazobactam (Sod 3.375 gm/ Sodium Chloride) 100 mls @ 200 mls/ hr IVPB Q6H [facility] Last Admin: 04/15/17 13:30 Dose: 200 mls/hr Pantoprazole Sodium (Protonix Inj) 40 mg IVP DAILY [facility] Last Admin: 04/15/17 09:30 Dose: 40 mg Physical Exam - Head Exam Head Exam: ATRAUMATIC - Eye Exam Eye Exam: Normal appearance - ENT Exam ENT Exam: Mucous Membranes Dry - Respiratory Exam Respiratory Exam: NORMAL BREATHING PATTERN - Cardiovascular Exam Cardiovascular Exam: +S1, +S2 - GI/Abdominal Exam GI & Abdominal Exam: Normal Bowel Sounds - Extremities Exam Extremities exam: Positive for: normal inspection - Neurological Exam Neurological exam: Oriented x3 - Psychiatric Exam Psychiatric exam: Normal Affect, Normal Mood - Skin Skin Exam: Warm Results - Vital Signs Recent Vital Signs: Last Vital Signs Temp 98.9 F 04/15/17 17:57 Pulse 111 H 04/15/17 17:57 Resp 20 04/15/17 17:57 BP 158/93 H 04/15/17 17:57 Pulse Ox 97 04/15/17 17:57 - Labs Result Diagrams: 04/15/17 14:04 04/15/17 06:46 Labs: Laboratory Results - last 24 hr 04/15/17 04/15/17 04/15/17 06:46 06:46 06:46 WBC 5.3 RBC 2.51 L Hgb 8.0 L Hct 23.4 L MCV 93.3 MCH 32.0 H MCHC 34.3 RDW 20.4 H Plt Count 125 L MPV 8.9 Neut % (Auto) 58.0 Lymph % (Auto) 27.4 Boundary % (Auto) 13.7 H Eos % (Auto) 0.1 Baso % (Auto) 0.8 Neut # 3.1 Lymph # 1.5 Boundary # 0.7 Eos # 0.0 Baso # 0.0 PT INR APTT Sodium 136 Potassium 4.4 Chloride 109 H Carbon Dioxide 22 Anion Gap 9 L BUN 32 H Creatinine 1.1 Est GFR ( Amer) > 60 Est GFR (Non-Af Amer) > 60 Random Glucose 86 Calcium 7.0 L Total Bilirubin 0.9 AST 30 ALT 32 Alkaline Phosphatase 43 Total Protein 4.9 L Albumin 2.1 L Globulin 2.8 Albumin/Globulin Ratio 0.8 L Blood Type A POSITIVE Antibody Screen Positive Antibody Identification Cancelled 04/15/17 04/15/17 14:04 14:04 WBC 5.4 RBC 2.80 L Hgb 8.9 L Hct 26.5 L MCV 94.5 H MCH 31.7 H MCHC 33.5 RDW 21.1 H Plt Count 129 L MPV 9.4 Neut % (Auto) 62.0 Lymph % (Auto) 25.8 Boundary % (Auto) 10.5 H Eos % (Auto) 0.1 Baso % (Auto) 1.6 Neut # 3.3 Lymph # 1.4 Boundary # 0.6 Eos # 0.0 Baso # 0.1 PT 11.5 INR 1.0 APTT 32 Sodium Potassium Chloride Carbon Dioxide Anion Gap BUN Creatinine Est GFR ( Amer) Est GFR (Non-Af Amer) Random Glucose Calcium Total Bilirubin AST ALT Alkaline Phosphatase Total Protein Albumin Globulin Albumin/Globulin Ratio Blood Type Antibody Screen Antibody Identification Assessment & Plan (1) Anemia Assessment and Plan: retic count noted to be elevated several days ago; may be rebounding after BM suppression from alcohol LDH also elevated with low haptoglobin; ? hemolysis. Will repeat retic and LDH ferritin elevated; anemia of chronic disease H/H improved Status: Acute (2) Thrombocytopenia Assessment and Plan: mild, improving element of splenic sequestration given splenomegaly Status: Acute (3) Splenomegaly Assessment and Plan: ?related to liver disease from drinking ?atypical splenic lesions recommend MRI of abdomen at some point Thank you for this interesting consult. Status: Acute
[2017-04-16] MEDS: Piperacillin/Tazobact 3.375 GM in Sodium Chloride 100 ML IVPB SCH ×4 (01:40→20:40)
[2017-04-16 07:47] LABS: ALB/GLOB RATIO 0.7 (1.0-2.1); ALKALINE PHOSPHATASE 42 U/L (38-126); ALT/SGPT 37 U/L (21-72); AST/SGOT 33 U/L (17-59); BILIRUBIN,TOTAL 0.9 mg/dL (0.2-1.3); BLOOD UREA NITROGEN 28 mg/dL (9-20); CALCIUM 7.7 mg/dl (8.6-10.4); CARBON DIOXIDE 22 mmol/L (22-30); CHLORIDE 110 mmol/L (98-107); GFR AFRICAN-AMERICAN > 60; GLUCOSE,RANDOM 82 mg/dL (75-110); POTASSIUM 4.4 mmol/L (3.6-5.2); SODIUM 135 mmol/L (132-148)
[2017-04-16 07:52] LABS: BASO % 0.9 % (0.0-2.0); HEMATOCRIT 22.9 % (35.0-51.0); LYMPH # 1.5 K/uL (1.0-4.3); LYMPH % 29.3 % (20.0-40.0); MEAN CELL VOLUME 94.7 fL (80.0-94.0); MEAN CORPUSCULAR HEMOGLOBIN 31.6 pg (27.0-31.0); MEAN CORPUSCULAR HGB CONC 33.4 g/dL (33.0-37.0); MONO # 0.7 K/uL (0.0-0.8); MONO % 13.2 % (0.0-10.0); NRBC % 0.1 % (0.0-2.0); RED CELL DISTRIBUTION WIDTH 20.2 % (11.5-14.5)
--- NOTE | 2017-04-16 08:33 | CP.PCM.PN ---
<Daniel Castro - Last Filed: 04/16/17 08:13> Subjective - Date & Time of Evaluation Date of Evaluation: 04/16/17 Time of Evaluation: 08:13 - Subjective Subjective: PGY1 for Dr. Francesca Martinez Patient seen and examined at bedside overnight. Patient states that in addition to his legs being swollen, he noticed that his scrotum is now swollen too. None of the swelling is painful, but it just concerns him. Otherwise the patient has no complaints. Denies f/c, n/v, d/c, sob or cp. Objective - Vital Signs/Intake and Output Vital Signs (last 24 hours): Temp Pulse Resp BP Pulse Ox 98.8 F 100 H 20 158/91 H 95 04/15/17 23:45 04/15/17 23:45 04/15/17 23:45 04/15/17 23:45 04/15/17 23:45 Intake and Output: 04/16/17 04/16/17 06:59 18:59 Intake Total 450 Balance 450 - Medications Medications: Current Medications Acetaminophen (Tylenol 325mg Tab) 650 mg PO ONCE PRN PRN Reason: Allergy symptoms Last Admin: 04/12/17 23:54 Dose: 650 mg Diphenhydramine HCl (Benadryl) 25 mg PO ONCE PRN PRN Reason: Allergy symptoms Last Admin: 04/12/17 23:54 Dose: 25 mg Piperacillin Sod/Tazobactam (Sod 3.375 gm/ Sodium Chloride) 100 mls @ 200 mls/ hr IVPB Q6H [facility]ON Last Admin: 04/16/17 06:38 Dose: 200 mls/hr Pantoprazole Sodium (Protonix Inj) 40 mg IVP DAILY JASSON Last Admin: 04/15/17 09:30 Dose: 40 mg - Labs Labs: 04/16/17 07:15 04/16/17 07:15 PT 11.5 SECONDS (9.7-12.2) 04/15/17 14:04 INR 1.0 04/15/17 14:04 APTT 32 SECONDS (21-34) 04/15/17 14:04 - Constitutional Appears: Non-toxic, No Acute Distress - Head Exam Head Exam: ATRAUMATIC, NORMOCEPHALIC - Eye Exam Eye Exam: EOMI, Normal appearance - ENT Exam ENT Exam: Mucous Membranes Moist - Respiratory Exam Respiratory Exam: Clear to Ausculation Bilateral, NORMAL BREATHING PATTERN. absent: Accessory Muscle Use, Respiratory Distress - Cardiovascular Exam Cardiovascular Exam: REGULAR RHYTHM, +S1, +S2 - GI/Abdominal Exam GI & Abdominal Exam: Soft, Hypoactive Bowel Sounds. absent: Tenderness - Exam Exam: Scrotal Swelling (non-painful to palpation) - Extremities Exam Extremities Exam: Joint Swelling, Pedal Edema (2+ pitting edema b/l from knee to foot). absent: Calf Tenderness, Tenderness - Neurological Exam Neurological Exam: Alert, Awake, Oriented x3 - Psychiatric Exam Psychiatric exam: Normal Affect, Normal Mood - Skin Skin Exam: Dry, Normal Color, Warm Assessment and Plan - Assessment and Plan (Free Text) Plan: Chronic Alcoholism Anemia * H/H dropped to 7.6/22.9 from 8.9/26.0 --> will transfuse 2 units of pRBCs today * Secondary to GI bleed secondary to Alcoholism/tobacco use * EGD: Erosive Gastropathy with no active bleeding * Transfuse if Hgb drops below 8 * Bleeding scan - No active GI bleed * Consulted GI (Rg) for possible colonoscopy to determine bleeding source Acute Cholecystitis * General Surgery ([facility]) waiting for H/H stable for surgery * Tentative OR Monday * Zosyn 3.375gm IV Q6H Nonanion Gap Metabolic Acidosis * Possible secondary to Acute guerline/bacteremia * F/U blood cultures - no growth at 72 hours * Bicarb = 22 Hyperkalemia - RESOLVED * K = 4.5 Tachycardia * Likely secondary to anemia Elevated LFTs * Tbili = 1.4 Hyponatremia - Resolved Elevated CEA * Needs colonoscopy to workup anemia and elevated CEA B/L Upper Lung Nodules * Needs outpatient CT to follow in 6 months Epistaxis - RESOLVED * Minimal bleeding, did not saturate 4x4 * Stopped spontaneously Prophylaxis * Pantoprazole 30mg PO QD * Ambulate/OOB Scrotal swelling along with b/l LE edema most likely due to 1/2 NS with 2 AMPs of HCO3 @ 65 ml/hour that was discontinued yesterday to treat the patient's nonanion gap metabolic acidosis. Will continue to monitor. 04/09/17: Patient transfused 2 units of PRBCs. After the first transfusion, patient was reexamined and reported that he felt much better since this morning. F/u repeat CBC after 2nd transfusion. 04/11/17: Patient Hgb dropped to 7.6 and was tachycardic, transfused 1 unit PRBC, Contacted GI (Rg) and they deem it necessary to do an EGD in the AM to determine source of blood loss. 04/12/17: Patient has a Abdominal US with pericholecystic fluid and a thickened wall which may suggest acalculous cholecystitis. EGD showed erosive gastropathy with no active or recent bleed. 04/13/17: Administered 1/2 NS with Bicarb @ 65 to correct metabolic acidosis 04/14/17: Hgb dropped to 8.3 on AM labs. Hgb stabilized at 8.9 on PM labs. Did a NM bleeding scan that showed no active GI bleed. Will f/u with Dr. Diez for reccs. 04/16/17: H/H dropped to 7.6/22.9 from 8.9/26.0 --> will transfuse 2 units of pRBCs today Will discuss with Dr. Francesca Castro PGY1 <Priyank Martinez - Last Filed: 04/16/17 20:19> Objective - Vital Signs/Intake and Output Vital Signs (last 24 hours): Temp Pulse Resp BP Pulse Ox 98.4 F 99 H 20 156/91 H 96 04/16/17 18:54 04/16/17 18:54 04/16/17 18:54 04/16/17 18:54 04/16/17 16:00 Intake and Output: 04/16/17 04/17/17 18:59 06:59 Intake Total 0 Balance 0 - Medications Medications: Current Medications Acetaminophen (Tylenol 325mg Tab) 650 mg PO Q4H PRN PRN Reason: Temperature Last Admin: 04/16/17 17:21 Dose: 650 mg Diphenhydramine HCl (Benadryl) 25 mg PO ONCE PRN PRN Reason: Allergy symptoms Last Admin: 04/12/17 23:54 Dose: 25 mg Diphenhydramine HCl (Benadryl) 25 mg PO Q4 PRN Last Admin: 04/16/17 17:21 Dose: 25 mg Piperacillin Sod/Tazobactam (Sod 3.375 gm/ Sodium Chloride) 100 mls @ 200 mls/ hr IVPB Q6H JASSON Last Admin: 04/16/17 12:55 Dose: 200 mls/hr Pantoprazole Sodium (Protonix Inj) 40 mg IVP DAILY [facility] Last Admin: 04/16/17 10:00 Dose: 40 mg - Labs Labs: 04/16/17 07:15 04/16/17 07:15 PT 11.5 SECONDS (9.7-12.2) 04/15/17 14:04 INR 1.0 04/15/17 14:04 APTT 32 SECONDS (21-34) 04/15/17 14:04 Attending/Attestation - Attestation I have personally seen and examined this patient.: Yes I have fully participated in the care of the patient.: Yes I have reviewed all pertinent clinical information, including history, physical exam and plan: Yes Notes (Text): 04/16/17 20:01 Patient was seen and examined at 11:10 AM 04/16/17. ROS: Christiano of the legs NO cough/wheezing/SOB/CP/lightheadedness/dizziness In addition to the above on exam: GI: BSx4 are reduced, Soft, ND, NO longer experiencing Arango's Sign in RUQ Ext: nonpitting edema in the feet up to mid tibia Assessments: Anemia likely secondary to suspected Upper GI Bleed secondary to history of Alocohl/Tobacco use: Upper EGD by GI Dr. Diez showed Erosive Gastropathy and the biopsies will need to be followed up. Patient was transfused an additional unit of PRBC on 04/12/17. HgB/Hct have dropped from 9.3 to [address] Diez was notified to request Colonoscopy considering this drop and the elevated CEA but recommendations from him were still have outpatient Colonoscopy. A GI Bleeding Scan was performed 04/14/17 and this did not show any GI Bleeding. 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 Considering this finding and the continued drop in HgB/Hct I have spoken with [employer] Manager/Oncologist Dr. Johny Khan for his opinion and he will see patient on 04/15/17 after review of records. Medicine Team please follow up with Dr. Johny Khan for his recommendations on further workup for the continued drops in HgB/Hct requiring blood transfusion. Patient is being transfused 2 more units today 04/16/17 as HgB again dropped below 8 with tachycardia. Acute Cholecystitis: Abdominal U/S shows evidence of this. I spoke with Surgeon Dr. Zamora and explained to him my findings on exam today and Dr. Zamora had planned to take patient to the OR on Monday04/17/17. However, after speaking with patient today 04/16/17 in the morning and in the evening, patient is considering not having the gall bladder removed. I explained to patient that as his exams have been unremarkable in this regard, as he has been tolerating his diet, not experiencing any abodminal pain, and as his metaoblic acidosis had resolved, that this is a reasonable option. I spoke with Surgeon Dr. Zamora on evening of 04/16/17 and explained this to him and also my concern of the continued drops in HgB/Hct. Therefore Dr. Zamora has cancelled the surgery that was scheduled for 04/17/17 at 11 AM. I have ordered HIDA Scan for morning of 04/17. Zosyn 3.375 gm IV Q6H. Nonanion Gap Metabolic Acidosis: as per ABG. Could be secondary to the Acute Cholecystitis/Bacteremia. Blood Culture has been negative to date. Improved/ Resolved with 1/2 NS with 2 AMPs of HCO3 @ 65 ml/hour and this was discontinued this morning 04/15/17 (and is the likely cause of the nonpitting edema of the legs mentioned in the exam above). Patient was given Lasix 20 mg IV x 1 dose on 04/16/17 another dose is ordered after first unit of PRBC is finished. Hyperkalemia: Improved/Resolved with the 1/2 NS with 2 AMPS HCO3 Hx Alcoholism Hyponatremia: resolved Elevated LFTs: resolved Tachycardia: likely secondary to the anemia Elevated CEA: explained at length to patient that he will require a Colonoscopy to rule out colonic mass. Please also see above B/L Upper Lung Lobe Nodules: will need follow up CT Chest as outpatient in 6 months. Positive Urine Culture: this showed Gram + Cocci but less than <10,000 CFU therefore this was reordered 04/16/17. Chest X Ray 04/15/17 was read as bilateral lower lobe infiltrate/effusions. However, please note that the chest portion of the CT Abdomen/Pelvis indicated compressive atelectasis. Scrotal Swelling: there is mild nonerythematous/nontender scrotal swelling. Lasix 20 mg IV x 1 dose was given on 04/16/17. Patient's parents came by to see patient today and requested to speak with me but unfortunately I was not able to do so secondary to being busy in the ER. I tried the phone number they left [phone] multiple times after 6 PM but attempt #1 (female voice could not here me and kept on saying hello), attempt # 2 (there was no answer), attempt #3 (I requested the dredge pump operator connect me from 5th floor but when the phone was answered and I said hello there was no response from the person who answered the phone). Medicine Team please make further attempts to reach to patient's parents to update them as to the above. Priyank Martinez D.O.
--- NOTE | 2017-04-16 09:01 | CP.PCM.PN ---
Subjective - Date & Time of Evaluation Date of Evaluation: 04/16/17 Time of Evaluation: 07:00 - Subjective Subjective: Pt S&E this AM. No complaints. Scheduled for OR tomorrow for laparoscopic cholecystectomy. Will need 2 units of PRBCs. Objective - Vital Signs/Intake and Output Vital Signs (last 24 hours): Temp Pulse Resp BP Pulse Ox 98.8 F 100 H 20 158/91 H 95 04/15/17 23:45 04/15/17 23:45 04/15/17 23:45 04/15/17 23:45 04/15/17 23:45 Intake and Output: 04/16/17 04/16/17 06:59 18:59 Intake Total 450 Balance 450 - Medications Medications: Current Medications Acetaminophen (Tylenol 325mg Tab) 650 mg PO ONCE PRN PRN Reason: Allergy symptoms Last Admin: 04/12/17 23:54 Dose: 650 mg Acetaminophen (Tylenol 325mg Tab) 650 mg PO ONCE ONE Stop: 04/16/17 13:31 Diphenhydramine HCl (Benadryl) 25 mg PO ONCE PRN PRN Reason: Allergy symptoms Last Admin: 04/12/17 23:54 Dose: 25 mg Diphenhydramine HCl (Benadryl) 25 mg PO ONCE ONE Stop: 04/16/17 13:31 Piperacillin Sod/Tazobactam (Sod 3.375 gm/ Sodium Chloride) 100 mls @ 200 mls/ hr IVPB Q6H JASSON Last Admin: 04/16/17 06:38 Dose: 200 mls/hr Pantoprazole Sodium (Protonix Inj) 40 mg IVP DAILY [facility] Last Admin: 04/15/17 09:30 Dose: 40 mg - Labs Labs: 04/16/17 07:15 04/16/17 07:15 PT 11.5 SECONDS (9.7-12.2) 04/15/17 14:04 INR 1.0 04/15/17 14:04 APTT 32 SECONDS (21-34) 04/15/17 14:04 - Constitutional Appears: No Acute Distress - Head Exam Head Exam: NORMOCEPHALIC - Eye Exam Eye Exam: Normal appearance - ENT Exam ENT Exam: Normal Exam - Respiratory Exam Respiratory Exam: NORMAL BREATHING PATTERN - Cardiovascular Exam Cardiovascular Exam: +S1, +S2 - GI/Abdominal Exam GI & Abdominal Exam: Soft - Neurological Exam Neurological Exam: Alert, Awake, Oriented x3 - Psychiatric Exam Psychiatric exam: Normal Mood - Skin Skin Exam: Dry, Warm Assessment and Plan - Assessment and Plan (Free Text) Assessment: 51M w/ ultrasound findings suggestive of acalculous cholecystitis -Transfuse 2 units of PRBCs prior to OR tomorrow 04/17 -NPO after midnight -Scheduled for OR Monday @ 11 AM -Pre-op Monday -Medical management per primary team -D/w Dr. Sera Groves PGY-2
[2017-04-16 09:03] LABS: RETIC% 2.5 % (0.5-1.5)
--- NOTE | 2017-04-16 20:20 | CP.PCM.PCO ---
Physician Communication Note - Physician Communication Note Physician Communication Note: Please see above
[2017-04-17] MEDS: Piperacillin/Tazobact 3.375 GM in Sodium Chloride 100 ML IVPB SCH ×2 (03:34→07:25)
--- NOTE | 2017-04-17 08:00 | CP.PCM.PN ---
Subjective - Date & Time of Evaluation Date of Evaluation: 04/17/17 Time of Evaluation: 07:00 - Subjective Subjective: SURGERY NOTE FOR DR. DE LA GARZA 51M seen and examined bedside. Patient is resting comfortably, denies pain, nausea, vomiting, fevers, chills. Laparoscopic cholecystectomy scheduled for today cancelled 2/2 patient preference. Patient states he does not want to have the operation as he feels that it is not currently urgent. Objective - Vital Signs/Intake and Output Vital Signs (last 24 hours): Temp Pulse Resp BP Pulse Ox 98.1 F 97 H 20 154/87 H 98 04/17/17 03:23 04/17/17 03:23 04/17/17 03:23 04/17/17 03:23 04/16/17 23:55 Intake and Output: 04/17/17 04/17/17 06:59 18:59 Intake Total 1710 Balance 1710 - Medications Medications: Current Medications Diphenhydramine HCl (Benadryl) 25 mg PO ONCE PRN PRN Reason: Allergy symptoms Last Admin: 04/12/17 23:54 Dose: 25 mg Piperacillin Sod/Tazobactam (Sod 3.375 gm/ Sodium Chloride) 100 mls @ 200 mls/ hr IVPB Q6H [facility]ASSON Last Admin: 04/17/17 07:25 Dose: 200 mls/hr Pantoprazole Sodium (Protonix Inj) 40 mg IVP DAILY [facility] Last Admin: 04/16/17 10:00 Dose: 40 mg - Labs Labs: 04/16/17 07:15 04/16/17 07:15 PT 11.5 SECONDS (9.7-12.2) 04/15/17 14:04 INR 1.0 04/15/17 14:04 APTT 32 SECONDS (21-34) 04/15/17 14:04 - Constitutional Appears: Non-toxic, No Acute Distress - Respiratory Exam Respiratory Exam: Clear to Ausculation Bilateral, NORMAL BREATHING PATTERN - Cardiovascular Exam Cardiovascular Exam: REGULAR RHYTHM, +S1, +S2 - GI/Abdominal Exam GI & Abdominal Exam: Soft. absent: Distended, Firm, Guarding, Rigid, Tenderness , Rebound Additional comments: negative murphys sign - Neurological Exam Neurological Exam: Alert, Awake Assessment and Plan - Assessment and Plan (Free Text) Assessment: 51M w/ ultrasound findings suggestive of acalculous cholecystitis, asymptomatic Plan: - operation scheduled for today has been cancelled - Patient states he does not want to have it done as he feels it is not currently urgent - Risks explained to patient Discussed with Dr. Sera Ruiz, PGY2
[2017-04-17 08:12] LABS: CHLORIDE 108 mmol/L (98-107)
[2017-04-17 08:13] LABS: POTASSIUM 4.3 mmol/L (3.6-5.2); SODIUM 138 mmol/L (132-148)
[2017-04-17 08:15] LABS: ALKALINE PHOSPHATASE 50 U/L (38-126); AST/SGOT 31 U/L (17-59); BILIRUBIN,TOTAL 1.5 mg/dL (0.2-1.3); BLOOD UREA NITROGEN 25 mg/dL (9-20); CARBON DIOXIDE 21 mmol/L (22-30); GFR AFRICAN-AMERICAN > 60; TOTAL PROTEIN 5.4 g/dL (6.3-8.3)
[2017-04-17 08:16] LABS: ALT/SGPT 36 U/L (21-72); CALCIUM 7.7 mg/dl (8.6-10.4); GLUCOSE,RANDOM 72 mg/dL (75-110)
[2017-04-17 08:17] LABS: ALB/GLOB RATIO 0.9 (1.0-2.1)
[2017-04-17 08:24] LABS: BASO % 0.8 % (0.0-2.0); EOS % 0.1 % (0.0-4.0); HEMATOCRIT 30.3 % (35.0-51.0); LYMPH # 1.7 K/uL (1.0-4.3); LYMPH % 28.7 % (20.0-40.0); MEAN CORPUSCULAR HEMOGLOBIN 31.9 pg (27.0-31.0); MEAN CORPUSCULAR HGB CONC 34.5 g/dL (33.0-37.0); MONO # 0.8 K/uL (0.0-0.8); MONO % 13.8 % (0.0-10.0); NRBC % 0.1 % (0.0-2.0); PLATELET COUNT 126 K/uL (130-400); RED CELL DISTRIBUTION WIDTH 19.1 % (11.5-14.5); WHITE BLOOD COUNT 5.8 K/uL (4.8-10.8)
[2017-04-17 08:28] LABS: MEAN CELL VOLUME 92.6 fL (80.0-94.0)
--- NOTE | 2017-04-17 08:47 | CP.PCM.PCO ---
Physician Communication Note - Physician Communication Note Physician Communication Note: Follow up HIDA Scan and Bilateral Venous Duplex of Legs
--- NOTE | 2017-04-17 10:33 | NM ---
PROCEDURE: Nuclear Medicine Hepatobiliary Scan HISTORY: Evidence of Cholecystitis on U/S and CT Abd COMPARISON: 04/14/2017. CT abdomen and pelvis. TECHNIQUE: 6.1 mCi of technetium 99m Mebrofenin was administered intravenously. Planar images of the abdomen were obtained at 5 min intervals to 60 mins. Delayed images were also obtained. FINDINGS: LIVER: Timely and homogenous uptake. COMMON BILE DUCT: identified at 5 mins. GALLBLADDER: identified at 65 mins. SMALL BOWEL: Identified at 10 mins. IMPRESSION: Normal Hepatobiliary Scan. The cystic duct is patent.
[2017-04-17 15:46] LABS: NEUTROPHIL 75 % (50-75); TOTAL CELLS COUNTED 100
--- NOTE | 2017-04-17 19:01 | CP.PCM.PN ---
Subjective - Date & Time of Evaluation Date of Evaluation: 04/17/17 Time of Evaluation: 18:59 - Subjective Subjective: PGY-[address] Carreno HPI: Patient seen and examined at bedside. Sitting in chair. Doing well with no complaints at this time. Talked about having a HIDA scan today and a MRI of thew abdomen tomorrow. Patient agrees with the plan. No omcplints of weakness or dizziness. Denies N/V/D/C/CP/F Objective - Vital Signs/Intake and Output Vital Signs (last 24 hours): Temp Pulse Resp BP Pulse Ox 98.4 F 114 H 20 158/102 H 98 04/17/17 16:00 04/17/17 16:00 04/17/17 16:00 04/17/17 16:00 04/17/17 16:00 Intake and Output: 04/17/17 04/17/17 06:59 18:59 Intake Total 1710 Balance 1710 - Medications Medications: Current Medications Diphenhydramine HCl (Benadryl) 25 mg PO ONCE PRN PRN Reason: Allergy symptoms Last Admin: 04/12/17 23:54 Dose: 25 mg Famotidine (Pepcid) 20 mg PO DAILY [facility]ASSON Last Admin: 04/17/17 12:59 Dose: 20 mg - Labs Labs: 04/17/17 07:56 04/17/17 07:56 PT 11.5 SECONDS (9.7-12.2) 04/15/17 14:04 INR 1.0 04/15/17 14:04 APTT 32 SECONDS (21-34) 04/15/17 14:04 - Constitutional Appears: Well, Non-toxic - Head Exam Head Exam: ATRAUMATIC, NORMAL INSPECTION, NORMOCEPHALIC - Eye Exam Eye Exam: EOMI - ENT Exam ENT Exam: Mucous Membranes Moist - Respiratory Exam Respiratory Exam: Clear to Ausculation Bilateral, NORMAL BREATHING PATTERN - Cardiovascular Exam Cardiovascular Exam: REGULAR RHYTHM - GI/Abdominal Exam GI & Abdominal Exam: Soft, Normal Bowel Sounds. absent: Distended, Firm, Guarding, Tenderness - Extremities Exam Additional comments: swelling of the bilateral lower extremities. 2+ pitting - Neurological Exam Neurological Exam: Alert, Awake, Oriented x3 - Psychiatric Exam Psychiatric exam: Normal Affect, Normal Mood - Skin Skin Exam: Dry, Intact, Normal Color, Warm Assessment and Plan - Assessment and Plan (Free Text) Assessment: Chronic Alcoholism Anemia * H/H 10.5/30.3 * Secondary to GI bleed secondary to Alcoholism/tobacco use * EGD: Erosive Gastropathy with no active bleeding * Transfuse if Hgb drops below 8 * Bleeding scan - No active GI bleed * Consulted GI (Rg) for possible colonoscopy- per GI not indicated, will scope outpt * Stool occult negative x5 * Retic count 2.5 with a Haptoglobin <15. Possible rebound from BM suppression * F/U peripheral smear * CT: atypical corinne of spleen, splenic lacerations Vs atypical splenic mets * Consult heme (Bill) * F/U MRI of abdomen to take a better look at liver and spleen * When HgB stable follow up outpatient in 2 weeks for count check Nonanion Gap Metabolic Acidosis * Possible secondary to bacteremia * F/U blood cultures - no growth x5 days * Bicarb = 21 Tachycardia * Likely secondary to anemia Elevated LFTs * Tbili = 1.5 Elevated CEA * Needs colonoscopy to workup anemia and elevated CEA B/L Upper Lung Nodules * Needs outpatient CT to follow in 6 months Epistaxis - RESOLVED * Minimal bleeding, did not saturate 4x4 * Stopped spontaneously Acute Cholecystitis - RESOLVED * Normal HIDA Scan Hyperkalemia - RESOLVED * K = 4.3 Hyponatremia - RESOLVED Prophylaxis * Pantoprazole 30mg PO QD * Ambulate/OOB Scrotal swelling along with b/l LE edema most likely due to 1/2 NS with 2 AMPs of HCO3 @ 65 ml/hour that was discontinued yesterday to treat the patient's nonanion gap metabolic acidosis. Will continue to monitor. 04/09/17: Patient transfused 2 units of PRBCs. After the first transfusion, patient was reexamined and reported that he felt much better since this morning. F/u repeat CBC after 2nd transfusion. 04/11/17: Patient Hgb dropped to 7.6 and was tachycardic, transfused 1 unit PRBC, Contacted GI (Rg) and they deem it necessary to do an EGD in the AM to determine source of blood loss. 04/12/17: Patient has a Abdominal US with pericholecystic fluid and a thickened wall which may suggest acalculous cholecystitis. EGD showed erosive gastropathy with no active or recent bleed. 04/13/17: Administered 1/2 NS with Bicarb @ 65 to correct metabolic acidosis 04/14/17: Hgb dropped to 8.3 on AM labs. Hgb stabilized at 8.9 on PM labs. Did a NM bleeding scan that showed no active GI bleed. Will f/u with Dr. Diez for reccs. 04/16/17: H/H dropped to 7.6/22.9 from 8.9/26.0 --> will transfuse 2 units of pRBCs today 04/17/17: Normal HIDA scan, Ordered MRI of abdomen to classify spleen and liver
--- NOTE | 2017-04-18 06:22 | CP.PCM.PN ---
Subjective - Date & Time of Evaluation Date of Evaluation: 04/18/17 Time of Evaluation: 06:22 - Subjective Subjective: PGY1 Note for Dr. Carreno HPI: Patient seen and examined at bedside. Complaining of bilateral leg pain, Nausea and bothered by the swelling in his legs. No other complaints at this time. Discussed with him the results of his HIDA scan and the MRI of the abdomen . We said that if his Hgb stayed stable then he will be able to go home tomorrow. Also discussed starting blood pressure medication that would also decrease the swelling in his legs. Denies V/D/CP/C/F/chills. Objective - Vital Signs/Intake and Output Vital Signs (last 24 hours): Temp Pulse Resp BP Pulse Ox 99.1 F 111 H 20 154/92 H 94 L 04/17/17 23:45 04/18/17 00:45 04/17/17 23:45 04/17/17 23:45 04/17/17 23:45 - Medications Medications: Current Medications Diphenhydramine HCl (Benadryl) 25 mg PO ONCE PRN PRN Reason: Allergy symptoms Last Admin: 04/12/17 23:54 Dose: 25 mg Famotidine (Pepcid) 20 mg PO DAILY [facility] Last Admin: 04/17/17 12:59 Dose: 20 mg - Labs Labs: 04/17/17 07:56 04/17/17 07:56 PT 11.5 SECONDS (9.7-12.2) 04/15/17 14:04 INR 1.0 04/15/17 14:04 APTT 32 SECONDS (21-34) 04/15/17 14:04 - Constitutional Appears: Well, Non-toxic - Head Exam Head Exam: ATRAUMATIC, NORMAL INSPECTION, NORMOCEPHALIC - Eye Exam Eye Exam: EOMI Pupil Exam: NORMAL ACCOMODATION, PERRL - ENT Exam ENT Exam: Mucous Membranes Moist - Respiratory Exam Respiratory Exam: Clear to Ausculation Bilateral, NORMAL BREATHING PATTERN. absent: Rales, Rhonchi, Wheezes - Cardiovascular Exam Cardiovascular Exam: Tachycardia, REGULAR RHYTHM - GI/Abdominal Exam GI & Abdominal Exam: Soft, Normal Bowel Sounds. absent: Distended, Tenderness - Extremities Exam Extremities Exam: Pedal Edema Additional comments: bilateral swelling of lower extremities and scrotum - Neurological Exam Neurological Exam: Alert, Awake, Oriented x3 - Psychiatric Exam Psychiatric exam: Normal Affect, Normal Mood - Skin Skin Exam: Dry, Intact, Normal Color, Warm Assessment and Plan - Assessment and Plan (Free Text) Assessment: Chronic Alcoholism Anemia * H/H 9.4/28.2 * Secondary to GI bleed secondary to Alcoholism/tobacco use * EGD: Erosive Gastropathy with no active bleeding * Transfuse if Hgb drops below 8 * Bleeding scan - No active GI bleed * Consulted GI (Rg) for possible colonoscopy- per GI not indicated, will scope outpt * Stool occult negative x5 * Retic count 2.5 with a Haptoglobin <15. Possible rebound from BM suppression * CT: atypical corinne of spleen, splenic lacerations Vs atypical splenic mets * Consult heme (Bill) * MRI - unremarkable * When HgB stable follow up outpatient in 2 weeks for count check HTN * Lisinopril 10mg QD * Aldactone 25mg QD * Lasix 20mg QD Nonanion Gap Metabolic Acidosis * Possible secondary to bacteremia * Bicarb = 21 Tachycardia * Likely secondary to anemia Elevated LFTs - RESOLVED Elevated CEA * Needs colonoscopy to workup anemia and elevated CEA B/L Upper Lung Nodules * Needs outpatient CT to follow in 6 months Epistaxis - RESOLVED * Minimal bleeding, did not saturate 4x4 * Stopped spontaneously Acute Cholecystitis - RESOLVED * Normal HIDA Scan Hyperkalemia - RESOLVED * K = 4.4 Hyponatremia - RESOLVED Prophylaxis * Pantoprazole 30mg PO QD * Ambulate/OOB Scrotal swelling along with b/l LE edema most likely due to 1/2 NS with 2 AMPs of HCO3 @ 65 ml/hour that was discontinued yesterday to treat the patient's nonanion gap metabolic acidosis. Will continue to monitor. 04/09/17: Patient transfused 2 units of PRBCs. After the first transfusion, patient was reexamined and reported that he felt much better since this morning. F/u repeat CBC after 2nd transfusion. 04/11/17: Patient Hgb dropped to 7.6 and was tachycardic, transfused 1 unit PRBC, Contacted GI (Rg) and they deem it necessary to do an EGD in the AM to determine source of blood loss. 04/12/17: Patient has a Abdominal US with pericholecystic fluid and a thickened wall which may suggest acalculous cholecystitis. EGD showed erosive gastropathy with no active or recent bleed. 04/13/17: Administered 1/2 NS with Bicarb @ 65 to correct metabolic acidosis 04/14/17: Hgb dropped to 8.3 on AM labs. Hgb stabilized at 8.9 on PM labs. Did a NM bleeding scan that showed no active GI bleed. Will f/u with Dr. Diez for reccs. 04/16/17: H/H dropped to 7.6/22.9 from 8.9/26.0 --> will transfuse 2 units of pRBCs today 04/17/17: Normal HIDA scan, Ordered MRI of abdomen to classify spleen and liver 04/18/17: MRI of the abdomen was unremarkable. Started Aldactone, lasix and lisinopril to treat blood pressure and lower extremity edema.
[2017-04-18 07:08] LABS: BASO # 0.1 K/uL (0.0-0.2); EOS % 0.1 % (0.0-4.0); HEMATOCRIT 28.2 % (35.0-51.0); LYMPH # 1.5 K/uL (1.0-4.3); LYMPH % 26.9 % (20.0-40.0); MEAN CELL VOLUME 93.1 fL (80.0-94.0); MEAN CORPUSCULAR HGB CONC 33.3 g/dL (33.0-37.0); MEAN PLATELET VOLUME 8.8 fL (7.2-11.7); MONO # 0.8 K/uL (0.0-0.8); MONO % 13.3 % (0.0-10.0); NRBC % 0.1 % (0.0-2.0); RED CELL DISTRIBUTION WIDTH 19.2 % (11.5-14.5); WHITE BLOOD COUNT 5.7 K/uL (4.8-10.8)
[2017-04-18 07:39] LABS: CHLORIDE 110 mmol/L (98-107); POTASSIUM 4.4 mmol/L (3.6-5.2); SODIUM 139 mmol/L (132-148)
[2017-04-18 07:41] LABS: BILIRUBIN,TOTAL 0.9 mg/dL (0.2-1.3); CARBON DIOXIDE 24 mmol/L (22-30); GFR AFRICAN-AMERICAN > 60
[2017-04-18 07:42] LABS: ALB/GLOB RATIO 0.8 (1.0-2.1); ALKALINE PHOSPHATASE 45 U/L (38-126); ALT/SGPT 39 U/L (21-72); AST/SGOT 26 U/L (17-59); BLOOD UREA NITROGEN 26 mg/dL (9-20); CALCIUM 7.7 mg/dl (8.6-10.4); GLUCOSE,RANDOM 78 mg/dL (75-110); TOTAL PROTEIN 5.3 g/dL (6.3-8.3)
[2017-04-18] MEDS ORDERED: Gadodiamide 287 mg/ml 20 ml IV ONE (12:00)
--- NOTE | 2017-04-18 13:45 | MRI ---
PROCEDURE: MRI Abdomen with and without contrast HISTORY: Splenomegaly and abnormal enhancement of the spleen in prior CT. Hepatomegaly and trace ascites. History of suspected colonic mass, elevated CEA COMPARISON: Comparison is made to the previous CT dated 04/14/2017. TECHNIQUE: Multisequence, multiplanar MR images of the abdomen with and without gadolinium contrast enhancement. FINDINGS: LIVER: Mild hepatic steatosis is noted. There is no evidence of mass lesion in the liver. GALLBLADDER: Mild gallbladder wall thickening is noted. There is pericholecystic fluid which likely related to presence of ascites. No MRI evidence of gallstones. The biliary tree is not dilated. SPLEEN: Mild splenomegaly is noted measures up to 14 centimeter. There are foci of slightly hyperintense T2 signal and slightly hypointense T1 signal in the spleen showed no significant enhancement. Findings may represent venous Harvey, foci of infarction or less likely splenic lymphangioma. The possibility of malignant neoplasm or splenic laceration is less likely. PANCREAS: Unremarkable. ADRENALS: Unremarkable. KIDNEYS: Unremarkable. AORTA: No aneurysm. ASCITES: Trace ascites in the abdomen is again noted. PERITONEUM: Unremarkable. LYMPH NODES: Unremarkable. OTHER FINDINGS: Again seen moderate bilateral pleural effusion associated with partial atelectasis of the lower lobes. IMPRESSION: Mild hepatic steatosis. Re- demonstration of which shape and linear shaped foci of abnormal signal in the spleen which showed no significant enhancement. The differential diagnosis includes large splenic venous [place] versus other benign lesion such as lymphangioma or hemangioma or foci of prior infarctions. The possibility of malignant neoplasm or laceration is less likely. If clinically warranted interval follow-up reassessment by enhanced CT is suggested. Mild splenomegaly. Trace of fluid in the upper abdomen. Small amount of pericholecystic fluid. Mild gallbladder wall thickening without evidence of cholelithiasis or cholecystitis. Moderate bilateral pleural effusions.
--- NOTE | 2017-04-19 01:32 | CP.PCM.PN ---
Subjective - Date & Time of Evaluation Date of Evaluation: 04/18/17 Time of Evaluation: 18:00 - Subjective Subjective: Feeling better Objective - Vital Signs/Intake and Output Vital Signs (last 24 hours): Temp Pulse Resp BP Pulse Ox 98.9 F 114 H 18 157/87 H 97 04/18/17 15:37 04/18/17 16:00 04/18/17 15:37 04/18/17 17:04 04/18/17 15:37 - Medications Medications: Current Medications Diphenhydramine HCl (Benadryl) 25 mg PO ONCE PRN PRN Reason: Allergy symptoms Last Admin: 04/12/17 23:54 Dose: 25 mg Famotidine (Pepcid) 20 mg PO DAILY [facility] Last Admin: 04/18/17 12:38 Dose: 20 mg Furosemide (Lasix) 20 mg PO DAILY [facility] Last Admin: 04/18/17 17:04 Dose: 20 mg Lisinopril (Zestril) 10 mg PO DAILY [facility] Last Admin: 04/18/17 17:04 Dose: 10 mg Spironolactone (Aldactone) 25 mg PO DAILY [facility] Last Admin: 04/18/17 17:04 Dose: 25 mg - Labs Labs: 04/18/17 07:00 04/18/17 07:00 PT 11.5 SECONDS (9.7-12.2) 04/15/17 14:04 INR 1.0 04/15/17 14:04 APTT 32 SECONDS (21-34) 04/15/17 14:04 - Head Exam Head Exam: ATRAUMATIC - Eye Exam Eye Exam: Normal appearance - ENT Exam ENT Exam: Mucous Membranes Dry - Respiratory Exam Respiratory Exam: NORMAL BREATHING PATTERN - Cardiovascular Exam Cardiovascular Exam: +S1, +S2 - GI/Abdominal Exam GI & Abdominal Exam: Normal Bowel Sounds - Extremities Exam Extremities Exam: Pedal Edema Assessment and Plan (1) Anemia Assessment & Plan: s/p PRBC transfusion repeat retic and LDH Status: Acute (2) Thrombocytopenia Assessment & Plan: improving Status: Acute (3) Splenomegaly Status: Acute
[2017-04-19 07:34] LABS: BASO # 0.1 K/uL (0.0-0.2); BASO % 0.8 % (0.0-2.0); EOS % 0.1 % (0.0-4.0); HEMATOCRIT 29.5 % (35.0-51.0); LYMPH # 1.5 K/uL (1.0-4.3); LYMPH % 21.7 % (20.0-40.0); MEAN CELL VOLUME 94.9 fL (80.0-94.0); MEAN CORPUSCULAR HEMOGLOBIN 31.5 pg (27.0-31.0); MEAN CORPUSCULAR HGB CONC 33.2 g/dL (33.0-37.0); MEAN PLATELET VOLUME 8.7 fL (7.2-11.7); MONO # 0.9 K/uL (0.0-0.8); RED CELL DISTRIBUTION WIDTH 19.3 % (11.5-14.5); WHITE BLOOD COUNT 7.1 K/uL (4.8-10.8)
[2017-04-19 07:44] LABS: CHLORIDE 107 mmol/L (98-107); POTASSIUM 4.7 mmol/L (3.6-5.2); SODIUM 138 mmol/L (132-148)
[2017-04-19 07:46] LABS: GFR AFRICAN-AMERICAN > 60
[2017-04-19 07:47] LABS: ALB/GLOB RATIO 0.8 (1.0-2.1); ALKALINE PHOSPHATASE 48 U/L (38-126); ALT/SGPT 35 U/L (21-72); AST/SGOT 29 U/L (17-59); BLOOD UREA NITROGEN 29 mg/dL (9-20); CALCIUM 8.3 mg/dl (8.6-10.4); CARBON DIOXIDE 23 mmol/L (22-30); GLUCOSE,RANDOM 113 mg/dL (75-110)
--- NOTE | 2017-04-19 08:18 | RAD ---
HISTORY: SOB COMPARISON: 04/15/2017 FINDINGS: LUNGS: BIBASILAR OPACITIES MARKEDLY INCREASED COMPARED TO PRIOR EXAMINATION. PLEURA: SMALL BILATERAL PLEURAL EFFUSION. NO PNEUMOTHORAX. NEW CARDIOVASCULAR: CONGESTIVE CHANGE NOTED. FINDINGS MAY REFLECT PULMONARY EDEMA. RULE OUT BILATERAL PNEUMONIA. OSSEOUS STRUCTURES: No significant abnormalities. VISUALIZED UPPER ABDOMEN: Normal. OTHER FINDINGS: None. IMPRESSION: Bibasilar opacities markedly increased with congestive change and small bilateral pleural effusion. Possible pulmonary edema. Please correlate clinically.
[2017-04-19] MEDS ORDERED: Metoprolol 1 mg/ml Inj IVP ONE (09:14)
--- NOTE | 2017-04-19 11:46 | VASCLAB ---
PROCEDURE: Lower Extremity Venous Duplex Exam. HISTORY: Bilateral Lower Extremity Edema PRIORS: None. TECHNIQUE: Bilateral common femoral, femoral, popliteal and posterior tibial, peroneal and great saphenous veins were evaluated. Flow was assessed with color Doppler, compressibility, assessment of phasic flow and augmentation response. Report prepared by Fredo Knight, JAMES, RVT FINDINGS: RIGHT: 1. Common Femoral Vein: 1.1. Compressibility - Fully compressible: Thrombus - None : Flow - Phasic: Augmentation -Normal: Reflux - None. 2. Femoral Vein: 2.1. Compressibility - Fully compressible: Thrombus - None : Flow - Phasic: Augmentation -Normal: Reflux - None. 3. Popliteal Vein: 3.1. Compressibility - Fully compressible: Thrombus - None : Flow - Phasic: Augmentation -Normal: Reflux - None. 4. Posterior Tibial Vein: 4.1. Compressibility - Fully compressible: Thrombus - None: Flow - Phasic: Augmentation -Normal: Reflux - None. 5. Peroneal Vein: 5.1. Compressibility - Fully compressible: Thrombus - None: Flow - Phasic: Augmentation -Normal: Reflux - None. 6. Great Saphenous Vein: 6.1. Compressibility - Fully compressible: Thrombus - None: Flow - Phasic: Augmentation - Normal: Reflux - None. LEFT: 1. Common Femoral Vein: 1.1. Compressibility - Fully compressible: Thrombus - None: Flow - Phasic: Augmentation -Normal: Reflux - None. 2. Femoral Vein: 2.1. Compressibility - Fully compressible: Thrombus - None: Flow - Phasic: Augmentation -Normal: Reflux - None. 3. Popliteal Vein: 3.1. Compressibility - Fully compressible: Thrombus - None : Flow - Phasic: Augmentation -Normal: Reflux - None. 4. Posterior Tibial Vein: 4.1. Compressibility - Fully compressible: Thrombus - None: Flow - Phasic: Augmentation -Normal: Reflux - None. 5. Peroneal Vein: 5.1. Compressibility - Fully compressible: Thrombus - None: Flow - Phasic: Augmentation -Normal: Reflux - None. 6. Great Saphenous Vein: 6.1. Compressibility - Fully compressible: Thrombus - None: Flow - Phasic: Augmentation - Normal: Reflux - None. OTHER FINDINGS: Right: None significant. Left: None significant. IMPRESSION: Right: No evidence of deep or superficial vein thrombosis of the right lower extremity. Normal valve function noted of the right side. Left: No evidence of deep or superficial vein thrombosis of the left lower extremity. Normal valve function noted of the left side.
--- NOTE | 2017-04-19 14:53 | CP.PCM.PN ---
Subjective - Date & Time of Evaluation Date of Evaluation: 04/19/17 Time of Evaluation: 14:49 - Subjective Subjective: PGY-[address] Carreno HPI: Patient seen and examined at bedside. Doing well. Said he was SOB while walking around the halls. Complaining of severe swelling in his belly, scrotum and legs. Also nauseas this morning with one episode of non bloody emesis. No other complaints at this time. Denies D/C/CP/F/Chills Objective - Vital Signs/Intake and Output Vital Signs (last 24 hours): Temp Pulse Resp BP Pulse Ox 99.8 F H 122 H 22 166/102 H 97 04/19/17 11:45 04/19/17 12:45 04/19/17 12:17 04/19/17 14:00 04/19/17 12:17 Intake and Output: 04/19/17 04/19/17 06:59 18:59 Intake Total 500 Output Total 600 Balance -100 - Medications Medications: Current Medications Famotidine (Pepcid) 20 mg PO DAILY [facility] Last Admin: 04/19/17 09:27 Dose: 20 mg Furosemide (Lasix) 40 mg IV DAILY [facility] Lisinopril (Zestril) 10 mg PO DAILY [facility] Last Admin: 04/19/17 09:27 Dose: 10 mg Metoprolol Tartrate (Lopressor) 5 mg IVP Q4 PRN PRN Reason: Heart rate Metoprolol Tartrate (Lopressor) 25 mg PO BID [facility] Ondansetron HCl (Zofran Inj) 4 mg IVP Q4 PRN PRN Reason: Nausea/Vomiting Spironolactone (Aldactone) 25 mg PO DAILY [facility] Last Admin: 04/19/17 09:27 Dose: 25 mg - Labs Labs: 04/19/17 07:21 04/19/17 07:21 PT 11.5 SECONDS (9.7-12.2) 04/15/17 14:04 INR 1.0 04/15/17 14:04 APTT 32 SECONDS (21-34) 04/15/17 14:04 - Constitutional Appears: Well, Non-toxic, No Acute Distress - Head Exam Head Exam: ATRAUMATIC, NORMAL INSPECTION, NORMOCEPHALIC - Eye Exam Eye Exam: EOMI Pupil Exam: NORMAL ACCOMODATION - ENT Exam ENT Exam: Mucous Membranes Moist - Respiratory Exam Respiratory Exam: Clear to Ausculation Bilateral, NORMAL BREATHING PATTERN. absent: Rales, Rhonchi, Wheezes - Cardiovascular Exam Cardiovascular Exam: Tachycardia, REGULAR RHYTHM - GI/Abdominal Exam GI & Abdominal Exam: Distended, Soft, Normal Bowel Sounds. absent: Tenderness - Exam Exam: Scrotal Swelling - Extremities Exam Extremities Exam: Joint Swelling, Pedal Edema - Neurological Exam Neurological Exam: Alert, Awake, Oriented x3 - Psychiatric Exam Psychiatric exam: Normal Affect, Normal Mood - Skin Skin Exam: Dry, Intact, Normal Color, Warm Assessment and Plan - Assessment and Plan (Free Text) Assessment: Chronic Alcoholism Anemia * H/H 9.8/29.5 * Secondary to GI bleed secondary to Alcoholism/tobacco use * EGD: Erosive Gastropathy with no active bleeding * Transfuse if Hgb drops below 8 * Bleeding scan - No active GI bleed * Consulted GI (Rg) for possible colonoscopy- per GI not indicated, will scope outpt * Stool occult negative x5 * Retic count 2.5 with a Haptoglobin <15. Possible rebound from BM suppression * CT: atypical corinne of spleen, splenic lacerations Vs atypical splenic mets * Consult heme (Bill) * MRI - unremarkable * When HgB stable follow up outpatient in 2 weeks for count check SOB * BiPAP 14/6 @ 50% HTN * Lisinopril 10mg QD * Aldactone 25mg QD * Lasix 40 mg QD * Lopressor 25 mg BID Nonanion Gap Metabolic Acidosis * Possible secondary to bacteremia * Bicarb = 23 Tachycardia * Likely secondary to anemia * Lopressor 25 mg BID Elevated LFTs - RESOLVED Elevated CEA * Needs colonoscopy to workup anemia and elevated CEA B/L Upper Lung Nodules * Needs outpatient CT to follow in 6 months Epistaxis - RESOLVED * Minimal bleeding, did not saturate 4x4 * Stopped spontaneously Acute Cholecystitis - RESOLVED * Normal HIDA Scan Hyperkalemia - RESOLVED * K = 4.7 Hyponatremia - RESOLVED Prophylaxis * Pantoprazole 30mg PO QD * Ambulate/OOB 04/09/17: Patient transfused 2 units of PRBCs. After the first transfusion, patient was reexamined and reported that he felt much better since this morning. F/u repeat CBC after 2nd transfusion. 04/11/17: Patient Hgb dropped to 7.6 and was tachycardic, transfused 1 unit PRBC, Contacted GI (Rg) and they deem it necessary to do an EGD in the AM to determine source of blood loss. 04/12/17: Patient has a Abdominal US with pericholecystic fluid and a thickened wall which may suggest acalculous cholecystitis. EGD showed erosive gastropathy with no active or recent bleed. 04/13/17: Administered 1/2 NS with Bicarb @ 65 to correct metabolic acidosis 04/14/17: Hgb dropped to 8.3 on AM labs. Hgb stabilized at 8.9 on PM labs. Did a NM bleeding scan that showed no active GI bleed. Will f/u with Dr. Diez for reccs. 04/16/17: H/H dropped to 7.6/22.9 from 8.9/26.0 --> will transfuse 2 units of pRBCs today 04/17/17: Normal HIDA scan, Ordered MRI of abdomen to classify spleen and liver 04/18/17: MRI of the abdomen was unremarkable. Started Aldactone, lasix and lisinopril to treat blood pressure and lower extremity edema. 04/19/17: patient was having increased SOB. said it was hard to breath but denied chest pain. Patient was in acute distress. Ordered SL Nitro, ASA 325, BiPAP, trop and ekg. Trop was negative and EKG was Sinus tachy, CXR showed small effusions. BP and HR were elevated. Added Lopressor and increased Lasix. Bladder scan was negative for retention
[2017-04-19] MEDS: Metoprolol 1 mg/ml Inj IVP PRN (16:03)
[2017-04-19] MEDS ORDERED: Metoprolol 1 mg/ml Inj IVP STA (18:17)
[2017-04-19] MEDS ORDERED: Labetalol 25mg/5ml Syringe IVP STA (21:17)
[2017-04-20 08:22] LABS: BASO % 0.5 % (0.0-2.0); EOS % 0.3 % (0.0-4.0); HEMATOCRIT 28.5 % (35.0-51.0); LYMPH % 23.4 % (20.0-40.0); MEAN CELL VOLUME 94.9 fL (80.0-94.0); MEAN CORPUSCULAR HEMOGLOBIN 31.7 pg (27.0-31.0); MEAN CORPUSCULAR HGB CONC 33.4 g/dL (33.0-37.0); MEAN PLATELET VOLUME 8.8 fL (7.2-11.7); MONO # 1.2 K/uL (0.0-0.8); MONO % 13.8 % (0.0-10.0); NRBC % 0.5 % (0.0-2.0); RED CELL DISTRIBUTION WIDTH 18.7 % (11.5-14.5); WHITE BLOOD COUNT 8.4 K/uL (4.8-10.8)
[2017-04-20 08:57] LABS: POTASSIUM 4.2 mmol/L (3.6-5.2)
[2017-04-20 08:59] LABS: ALB/GLOB RATIO 0.8 (1.0-2.1); BILIRUBIN,TOTAL 1.3 mg/dL (0.2-1.3); TOTAL PROTEIN 6.1 g/dL (6.3-8.3)
[2017-04-20 09:00] LABS: CALCIUM 8.3 mg/dl (8.6-10.4)
--- NOTE | 2017-04-20 13:23 | CP.PCM.DIS ---
Provider - Provider Date of Admission: 04/09/17 05:09 Attending physician: Priyank Martinez MD Primary care physician: none Consults: GI: Rg Heme: [place] Nephro: Mugni Time Spent in preparation of Discharge (in minutes): 60 Hospital Course - Lab Results Lab Results: Micro Results 04/16/17 22:59 Urine Urine Culture - Final No Growth (<1,000 CFU/ML) 04/12/17 17:00 Blood Blood Culture - Final NO GROWTH AFTER 5 DAYS 04/12/17 17:00 Blood Gram Stain - Final TEST NOT PERFORMED 04/12/17 16:30 Blood Blood Culture - Final NO GROWTH AFTER 5 DAYS 04/12/17 16:30 Blood Gram Stain - Final TEST NOT PERFORMED 04/12/17 20:30 Urine Urine Culture - Final Gram Positive Cocci Most Recent Lab Values WBC 8.4 K/uL (4.8-10.8) 04/20/17 08:03 RBC 3.01 Mil/uL (4.40-5.90) L 04/20/17 08:03 Hgb 9.5 g/dL (12.0-18.0) L 04/20/17 08:03 Hct 28.5 % (35.0-51.0) L 04/20/17 08:03 MCV 94.9 fL (80.0-94.0) H 04/20/17 08:03 MCH 31.7 pg (27.0-31.0) H 04/20/17 08:03 MCHC 33.4 g/dL (33.0-37.0) 04/20/17 08:03 RDW 18.7 % (11.5-14.5) H 04/20/17 08:03 Plt Count 143 K/uL (130-400) 04/20/17 08:03 MPV 8.8 fL (7.2-11.7) 04/20/17 08:03 Neut % (Auto) 62.0 % (50.0-75.0) 04/20/17 08:03 Lymph % (Auto) 23.4 % (20.0-40.0) 04/20/17 08:03 [place] % (Auto) 13.8 % (0.0-10.0) H 04/20/17 08:03 Eos % (Auto) 0.3 % (0.0-4.0) 04/20/17 08:03 Baso % (Auto) 0.5 % (0.0-2.0) 04/20/17 08:03 Neut # 5.2 K/uL (1.8-7.0) 04/20/17 08:03 Lymph # 2.0 K/uL (1.0-4.3) 04/20/17 08:03 [place] # 1.2 K/uL (0.0-0.8) H 04/20/17 08:03 Eos # 0.0 K/uL (0.0-0.7) 04/20/17 08:03 Baso # 0.0 K/uL (0.0-0.2) 04/20/17 08:03 Neutrophils % (Manual) 75 % (50-75) 04/17/17 07:56 Band Neutrophils % 3 % (0-2) H 04/17/17 07:56 Lymphocytes % (Manual) 17 % (20-40) L 04/17/17 07:56 Monocytes % (Manual) 5 % (0-10) 04/17/17 07:56 Metamyelocytes % 2 % (0-0) H 04/12/17 06:10 Differential Comment 04/09/17 08:00 Platelet Estimate Normal (NORMAL) 04/17/17 07:56 Hypochromasia (manual) Slight 04/17/17 07:56 Anisocytosis (manual) Slight 04/17/17 07:56 Macrocytosis (manual) Slight 04/12/17 06:10 Retic Count 1.9 % (0.5-1.5) H D 04/19/17 07:21 Haptoglobin <15 mg/dL (43-212) L 04/09/17 12:19 PT 11.5 SECONDS (9.7-12.2) 04/15/17 14:04 INR 1.0 04/15/17 14:04 APTT 32 SECONDS (21-34) 04/15/17 14:04 Puncture Site Rra 04/12/17 16:05 pCO2 26 mm/Hg (35-45) L 04/12/17 16:05 pO2 105 mm/Hg (80-100) H 04/12/17 16:05 HCO3 16.3 mmol/L (21-28) L 04/12/17 16:05 ABG pH 7.33 (7.35-7.45) L 04/12/17 16:05 ABG Total CO2 14.5 mmol/L (22-28) L 04/12/17 16:05 ABG O2 Saturation 99.2 % (95-98) H 04/12/17 16:05 ABG Base Excess -11.0 mmol/L (-2.0-3.0) L 04/12/17 16:05 ABG Hemoglobin 8.5 g/dL (11.7-17.4) L 04/12/17 16:05 ABG Carboxyhemoglobin 3.0 % (0.5-1.5) H 04/12/17 16:05 POC ABG HHb (Measured) 0.8 % (0.0-5.0) 04/12/17 16:05 ABG Methemoglobin 1.0 % (0.0-3.0) 04/12/17 16:05 Chandra Test Pos 04/12/17 16:05 A-a O2 Difference 12.0 mm/Hg 04/12/17 16:05 Respiratory Index 0.1 04/12/17 16:05 Hgb O2 Saturation 95.2 % (95.0-98.0) 04/12/17 16:05 FiO2 21.0 % 04/12/17 16:05 Sodium 140 mmol/L (132-148) 04/20/17 08:03 Potassium 4.2 mmol/L (3.6-5.2) 04/20/17 08:03 Chloride 106 mmol/L (98-107) 04/20/17 08:03 Carbon Dioxide 24 mmol/L (22-30) 04/20/17 08:03 Anion Gap 14 (10-20) 04/20/17 08:03 BUN 35 mg/dL (9-20) H 04/20/17 08:03 Creatinine 1.6 MG/DL (0.8-1.5) H 04/20/17 08:03 Est GFR ( Amer) 56 04/20/17 08:03 Est GFR (Non-Af Amer) 46 04/20/17 08:03 Random Glucose 96 mg/dL (75-110) 04/20/17 08:03 Calcium 8.3 mg/dl (8.6-10.4) L 04/20/17 08:03 Iron 104 ug/dL (49-181) 04/09/17 08:00 TIBC 214 ug/dL (250-450) L 04/09/17 08:00 % Saturation 49 (20-55) 04/09/17 08:00 Ferritin 4760.0 ng/mL 04/09/17 08:00 Total Bilirubin 1.3 mg/dL (0.2-1.3) 04/20/17 08:03 AST 25 U/L (17-59) 04/20/17 08:03 ALT 26 U/L (21-72) 04/20/17 08:03 Alkaline Phosphatase 50 U/L (38-126) 04/20/17 08:03 Lactate Dehydrogenase 1685 U/L (313-618) H 04/19/17 07:21 Troponin I 0.0230 ng/mL (0.00-0.120) 04/19/17 11:57 Total Protein 6.1 g/dL (6.3-8.3) L 04/20/17 08:03 Albumin 2.6 g/dL (3.5-5.0) L 04/20/17 08:03 Globulin 3.5 gm/dL (2.2-3.9) 04/20/17 08:03 Albumin/Globulin Ratio 0.8 (1.0-2.1) L 04/20/17 08:03 Lipase 457 U/L (23-300) H 04/09/17 02:12 Carcinoembryonic Ag 3.6 ng/mL (0-3.0) H 04/09/17 12:19 Prostate Specific Ag 0.297 ng/mL (0.00-4.0) 04/09/17 12:19 Vitamin B12 779 pg/mL (239-931) 04/09/17 08:00 Folate > 20.0 ng/mL 04/09/17 08:00 Thyroxine (T4) 7.94 ug/dL (5.5-11.0) 04/09/17 02:12 Total T3 1.07 nmol/L (1.49-2.60) L 04/09/17 02:12 Urine Color Elsa (YELLOW) 04/09/17 07:15 Urine Clarity Hazy (Clear) 04/09/17 07:15 Urine pH 6.0 (5.0-8.0) 04/09/17 07:15 Ur Specific [place] 1.013 (1.003-1.030) 04/09/17 07:15 Urine Protein Negative mg/dL (NEGATIVE) 04/09/17 07:15 Urine Glucose (UA) Normal mg/dL (Normal) 04/09/17 07:15 Urine Ketones Negative mg/dL (NEGATIVE) 04/09/17 07:15 Urine Blood 2+ (NEGATIVE) H 04/09/17 07:15 Urine Nitrate Negative (NEGATIVE) 04/09/17 07:15 Urine Bilirubin Negative (NEGATIVE) 04/09/17 07:15 Urine Urobilinogen Normal mg/dL (0.2-1.0) 04/09/17 07:15 Ur Leukocyte Esterase Neg Veronica/uL (Negative) 04/09/17 07:15 Urine WBC (Auto) 5 /hpf (0-5) 04/09/17 07:15 Urine RBC (Auto) 3 /hpf (0-3) 04/09/17 07:15 Ur Squamous Epith Cells < 1 /hpf (0-5) 04/09/17 07:15 Urine Bacteria Rare (<OCC) 04/09/17 07:15 Hyaline Casts 0-2 /lpf (0-2) 04/09/17 07:15 Stool Occult Blood Negative (NEGATIVE) 04/16/17 22:34 Urine Opiates Screen Negative (NEGATIVE) 04/09/17 07:15 Urine Methadone Screen Negative (NEGATIVE) 04/09/17 07:15 Ur Barbiturates Screen Negative (NEGATIVE) 04/09/17 07:15 Ur Phencyclidine Scrn Negative (NEGATIVE) 04/09/17 07:15 Ur Amphetamines Screen Negative (NEGATIVE) 04/09/17 07:15 U Benzodiazepines Scrn Negative (NEGATIVE) 04/09/17 07:15 U Oth Cocaine Metabols Negative (NEGATIVE) 04/09/17 07:15 U Cannabinoids Screen Negative (NEGATIVE) 04/09/17 07:15 Blood Type A POSITIVE 04/16/17 13:58 Antibody Screen Positive 04/16/17 13:58 Antibody Identification Anti E 04/16/17 13:58 FABIAN, Poly Interpret Negative (NEGATIVE) 04/16/17 13:58 Crossmatch See Detail 04/16/17 13:58 - Hospital Course Hospital Course: Patient admitted to the ED on 04/09/17 for two history of weakness/drowsiness In the ED a CT scan was performed 04/09/17. It showed no acute intracranial abnormality. Chest xray was performed 04/09/17. Diffuse interstitial lung markings were noted. Patchy infiltrate in righ lung base. Biaplical pleural thickening with upper lobe nodularity ECG was performed 04/09/17. Results showed sinus tachy nonspecific ST abnormality HgB was found to be low after admission and was transfused 2 units Patient states a history of alcholism and a Abdominal U/S was ordered U/S performed of 04/11/17. It showed partially distended gallbladder with wall thickening. Pericholecystic fluid and minimal sludge, suggesting possible acalculous acholecystitis. An upper GI bleed was suspected due to his history of alcholism and low HgB Endoscopy was performed 04/12/17. No recent or active bleeding was noting and biopsies were taken Dr. Zamora, general surgery, was consulted as per Abdominal u/s results for possible cholecystectomy once HgB remains stable HgB dropped to 8.3 on AM labs. 04/14/17 GI bleed scan was performed 04/14/17. Results were negative for acute or active bleeding. Abdomen/ Pelvis CT was performd 04/14/17. Small bilateral pleural effusion with bilateral lower lobe atelectasis. Mild splenomegaly with atypical apperance of spleen. Possible splenic lacerations or atypical splenic metastasis suspected at this time Chest Xray performed 04/15/17. SHowed bilateral lower lobe infiltrates and bilateral pleural effusons. Consulted Eduardo, Dr. Khan, for possible malignancy Echo performed 04/16/17. Sinus tachy otherwise normal A HIDA scan was performed on 04/17/17. Results were normal with patent cystic duct. Bilateral lower extremity edema was noted and a Duplex Scan of the lower extremity was performed 04/17/17. Results were normal. MRI of the adomen was performed 04/18/17. Foci of abnormal signal were noted in the spleen and mild hepatic steatosis. 04/19/17 chest xray performed. Bibasilar opacities markedly increased with congestive change and small bilateral pleural effusion. During patient exam on 04/19/17 it was noted he had labored breathing, fluid retention in his abdomen, and spiking bp( highest reached 176/114). Patient was placed on bipap and administed IV HTZ, metoprolol, nitroglycerin, and increased doses of Lasix. EKG was performed on 04/19/17 following this event. Study showed sinus tachy. Patient was examed again on 04/20/17 and was well appearing and in no acute distress. Patient had an episode of SOB and was required BiPAP. A CXR was ordered that revealed a pneumonia. He was treated with IV antibiotics until his fevers resolved for 48 hours. A CMP revealed declining renal function so the patient was evaluated by Dr. Hannon who recommended a possible renal Bx given his urine studies. The patient refused Hydralazine, Lasix and cardizem because he was afraid of the side effects. The patient was later medically stable and remained afebrile. The additional renal workup can be done outpatient per Dr. Hannon. - Date & Time of H&P Date of H&P: 04/09/17 Time of H&P: 06:15 Discharge Exam - Head Exam Head Exam: ATRAUMATIC, NORMAL INSPECTION, NORMOCEPHALIC - Eye Exam Eye Exam: EOMI - ENT Exam ENT Exam: Mucous Membranes Moist - Respiratory Exam Respiratory Exam: NORMAL BREATHING PATTERN - Cardiovascular Exam Cardiovascular Exam: REGULAR RHYTHM. absent: Gallop, Rubs, Systolic Murmur - GI/Abdominal Exam GI & Abdominal Exam: Normal Bowel Sounds, Soft. absent: Distended, Tenderness - Neurological Exam Neurological exam: Alert, CN II-XII Intact - Psychiatric Exam Psychiatric exam: Normal Affect, Normal Mood - Skin Skin Exam: Dry, Intact, Normal Color, Warm Discharge Plan - Discharge Medications Prescriptions: amLODIPine [Norvasc] 5 mg PO DAILY #30 tab Famotidine [Pepcid] 20 mg PO DAILY #30 tab Lisinopril [Zestril] 10 mg PO DAILY #30 tab Metoprolol Tartrate [Lopressor] 50 mg PO BID #60 tab Spironolactone [Aldactone] 25 mg PO DAILY #30 tab - Follow Up Plan Condition: STABLE Disposition: HOME/ ROUTINE Instructions: Metoprolol (By mouth), Spironolactone (By mouth), Lisinopril (By mouth), Famotidine (By mouth), Furosemide (By mouth), Gastritis (DC), Acute Kidney Injury (DC), Heart Healthy Diet (DC), Upper Endoscopy (DC), Hypertension (DC), Hypertension (GEN), Anemia (DC) Additional Instructions: 1). Schedule follow up with the [facility] located at [address] in [place], [place] [address]. Call [phone] on 04/25/17 to schedule this appointment to take place in within the next 7 days. The doctors there will be your Primary Care Physicians and help to coordinate your care. 2). Through the [facility] you will need to arrange the following: Monitoring of your Hemoglobin to make sure that it is remaining stable. Scheduling of a Colonoscopy to check your colon to make sure that there are no masses. Follow up with Pheresis Specialist Dr. Mark Khan [phone] in 2 weeks Follow up with Kidney Specialist Dr. Chung in [address] Scan of your Chest in 6 months time to make sure that the nodules in your lungs are stable. 3). You were given prescriptions for the following medications. Please have them filled at your pharmacy and take as directed: Ciprofloxacin 500 mg, 1 tablet with breakfast and 1 tablet with dinner until finished, Disp: #12, NO refills Aldactone 25 mg, 1 tablet by mouth 1x/day with breakfast (7 AM), Disp #30, NO refills Metoprolol Tartrate 50 mg, 1 tablet by mouth 2x/day (9 AM and 9 PM), Disp #60, NO refills Lisinopril 10 mg, 1 tablet by mouth 1x/day (1 PM), Disp #30, NO refills Norvasc 5 mg, 1 tablet by mouth 1x/day (5 PM), Disp #30, NO refills 4). Please ask your pharmacist which probiotic he/she recommends and take once a day at lunch time through 05/31/17. 5). Failure to follow the above instructions will have serious consequences to your health. 6). Please take care and be well. Referrals: [facility] [Outside] Mark Khan MD [Staff Provider] - Vini Diez MD [Staff Provider] - Reji Chung MD [Staff Provider] -
[2017-04-20] MEDS: Metoprolol 1 mg/ml Inj IVP PRN (15:18)
--- NOTE | 2017-04-20 19:52 | CP.PCM.PN ---
Subjective - Date & Time of Evaluation Date of Evaluation: 04/20/17 Time of Evaluation: 19:49 - Subjective Subjective: PGY1 Note for Dr. Carreno HPI: Patient seen and examined at bedside. He was feeling well today with no complaints. He denied N/V/F/C/SOB. Was ready to be D/c today but had a fever of 102 and a nose bleed in the late afternoon. Patient dismisses the importance of the fever and wants to leave. He has agreed to stay the night but wants to leave tomorrow. Objective - Vital Signs/Intake and Output Vital Signs (last 24 hours): Temp Pulse Resp BP Pulse Ox 99.7 F H 114 H 20 155/91 H 95 04/20/17 16:30 04/20/17 16:00 04/20/17 16:00 04/20/17 16:00 04/20/17 16:00 Intake and Output: 04/20/17 04/21/17 18:59 06:59 Intake Total 400 Output Total 400 Balance 0 - Medications Medications: Current Medications Famotidine (Pepcid) 20 mg PO DAILY [facility] Last Admin: 04/20/17 10:05 Dose: 20 mg Furosemide (Lasix) 40 mg IV DAILY [facility] Last Admin: 04/20/17 10:05 Dose: 40 mg Lisinopril (Zestril) 10 mg PO DAILY [facility] Last Admin: 04/20/17 10:05 Dose: 10 mg Metoprolol Tartrate (Lopressor) 5 mg IVP Q4 PRN PRN Reason: Heart rate Last Admin: 04/20/17 15:18 Dose: 5 mg Metoprolol Tartrate (Lopressor) 50 mg PO BID [facility] Last Admin: 04/20/17 10:00 Dose: 50 mg Ondansetron HCl (Zofran Inj) 4 mg IVP Q4 PRN PRN Reason: Nausea/Vomiting Spironolactone (Aldactone) 25 mg PO DAILY [facility] Last Admin: 04/20/17 10:05 Dose: 25 mg - Labs Labs: 04/20/17 08:03 04/20/17 08:03 PT 11.5 SECONDS (9.7-12.2) 04/15/17 14:04 INR 1.0 04/15/17 14:04 APTT 32 SECONDS (21-34) 04/15/17 14:04 - Constitutional Appears: Well, Non-toxic, No Acute Distress - Head Exam Head Exam: NORMAL INSPECTION - Eye Exam Eye Exam: EOMI - ENT Exam ENT Exam: Mucous Membranes Moist - Respiratory Exam Respiratory Exam: Accessory Muscle Use, NORMAL BREATHING PATTERN - Cardiovascular Exam Cardiovascular Exam: Tachycardia, REGULAR RHYTHM - GI/Abdominal Exam GI & Abdominal Exam: Soft. absent: Distended, Tenderness, Mass - Extremities Exam Extremities Exam: Joint Swelling, Pedal Edema - Neurological Exam Neurological Exam: Alert, Awake, Oriented x3 - Psychiatric Exam Psychiatric exam: Normal Affect, Normal Mood - Skin Skin Exam: Dry, Intact, Normal Color, Warm Assessment and Plan - Assessment and Plan (Free Text) Assessment: Chronic Alcoholism Fever * Spiked a 102 fever * F/U CXR * F/U Urine culture * F/U blood culture Anemia * H/H 9.5/28.5 * Secondary to GI bleed secondary to Alcoholism/tobacco use * EGD: Erosive Gastropathy with no active bleeding * Transfuse if Hgb drops below 8 * Bleeding scan - No active GI bleed * Consulted GI (Rg) for possible colonoscopy- per GI not indicated, will scope outpt * Stool occult negative x5 * Retic count 2.5 with a Haptoglobin <15. Possible rebound from BM suppression * CT: atypical corinne of spleen, splenic lacerations Vs atypical splenic mets * Consult heme (Bill) * MRI - unremarkable * Follow up outpatient in 2 weeks for count check SOB - RESOLVED HTN * Lisinopril 10mg QD * Aldactone 25mg QD * Lasix 40 mg QD * Lopressor 25 mg BID Nonanion Gap Metabolic Acidosis - RESOLVED Tachycardia * Likely secondary to anemia * Lopressor 25 mg BID Elevated LFTs - RESOLVED Elevated CEA * Needs colonoscopy to workup anemia and elevated CEA B/L Upper Lung Nodules * Needs outpatient CT to follow in 6 months Epistaxis - RESOLVED * Minimal bleeding, did not saturate 4x4 * Stopped spontaneously Acute Cholecystitis - RESOLVED * Normal HIDA Scan Hyperkalemia - RESOLVED * K = 4.2 Hyponatremia - RESOLVED Prophylaxis * Pantoprazole 30mg PO QD * Ambulate/OOB 04/09/17: Patient transfused 2 units of PRBCs. After the first transfusion, patient was reexamined and reported that he felt much better since this morning. F/u repeat CBC after 2nd transfusion. 04/11/17: Patient Hgb dropped to 7.6 and was tachycardic, transfused 1 unit PRBC, Contacted GI (Rg) and they deem it necessary to do an EGD in the AM to determine source of blood loss. 04/12/17: Patient has a Abdominal US with pericholecystic fluid and a thickened wall which may suggest acalculous cholecystitis. EGD showed erosive gastropathy with no active or recent bleed. 04/13/17: Administered 1/2 NS with Bicarb @ 65 to correct metabolic acidosis 04/14/17: Hgb dropped to 8.3 on AM labs. Hgb stabilized at 8.9 on PM labs. Did a NM bleeding scan that showed no active GI bleed. Will f/u with Dr. Diez for reccs. 04/16/17: H/H dropped to 7.6/22.9 from 8.9/26.0 --> will transfuse 2 units of pRBCs today 04/17/17: Normal HIDA scan, Ordered MRI of abdomen to classify spleen and liver 04/18/17: MRI of the abdomen was unremarkable. Started Aldactone, lasix and lisinopril to treat blood pressure and lower extremity edema. 04/19/17: patient was having increased SOB. said it was hard to breath but denied chest pain. Patient was in acute distress. Ordered SL Nitro, ASA 325, BiPAP, trop and ekg. Trop was negative and EKG was Sinus tachy, CXR showed small effusions. BP and HR were elevated. Added Lopressor and increased Lasix. Bladder scan was negative for retention 04/20/17: Patient was ready to be d/c today until he spiked a fever of 102. We repeated a CXR and did blood and urine cultures
[2017-04-20] MEDS ORDERED: guaiFENesin DM 200 mg-20 mg/10 ml UD PO PRN (23:56)
[2017-04-21] MEDS: Metoprolol 1 mg/ml Inj IVP PRN (00:51)
[2017-04-21 07:22] LABS: BASO % 0.7 % (0.0-2.0); EOS % 0.6 % (0.0-4.0); HEMATOCRIT 25.9 % (35.0-51.0); LYMPH # 1.6 K/uL (1.0-4.3); LYMPH % 24.5 % (20.0-40.0); MEAN CELL VOLUME 94.8 fL (80.0-94.0); MEAN CORPUSCULAR HEMOGLOBIN 31.7 pg (27.0-31.0); MEAN CORPUSCULAR HGB CONC 33.4 g/dL (33.0-37.0); MEAN PLATELET VOLUME 9.2 fL (7.2-11.7); MONO # 0.9 K/uL (0.0-0.8); MONO % 14.4 % (0.0-10.0); WHITE BLOOD COUNT 6.4 K/uL (4.8-10.8)
[2017-04-21 07:28] LABS: POTASSIUM 4.2 mmol/L (3.6-5.2)
[2017-04-21 07:31] LABS: ALB/GLOB RATIO 0.8 (1.0-2.1); BILIRUBIN,TOTAL 1.2 mg/dL (0.2-1.3); CALCIUM 7.9 mg/dl (8.6-10.4); TOTAL PROTEIN 5.8 g/dL (6.3-8.3)
--- NOTE | 2017-04-21 09:35 | RAD ---
HISTORY: Fever COMPARISON: 04/19/2017. FINDINGS: LUNGS: There is no significant interval change in bibasilar airspace disease, worse on the left. There is mild pulmonary venous congestion. There are calcified granulomas in the right upper lobe. PLEURA: There are worsening bilateral pleural effusions, larger on the left. CARDIOVASCULAR: Normal. OSSEOUS STRUCTURES: No significant abnormalities. VISUALIZED UPPER ABDOMEN: Normal. OTHER FINDINGS: None. IMPRESSION: Persistent bibasilar atelectasis/ pneumonia and worsening pleural effusions, larger on the left.
[2017-04-21] MEDS: cefTRIAXone IV 1 gm in Dextros 50 ML IVPB SCH (11:17)
[2017-04-21] MEDS ORDERED: Azithromycin 500 MG in Sodium Chloride 0.9% 250 ML IVPB SCH (11:30)
--- NOTE | 2017-04-21 13:43 | CP.PCM.CON ---
<Arlette Rivas - Last Filed: 04/21/17 14:44> History of Present Illness - History of Present Illness History of Present Illness: PGY-2 Nephrology consult note for Dr. Chung 51 yo alcoholic male with no significant PMH presented to the ED with a 2 weeks history of feeling weak, and unsteady while walking. He also reported dizziness with lightheadedness. Patient was found to be anemic and was transfused multiple unit of pRBC. EGD showed erosive gastropathy. Patient became fluid overloaded and lasix were started. A few days prior patient became SOB with cxr showing small effusions. Patient was found to have increased BUN and creatinine. Patient has h/o alcohol use, drinking 6 beers a day for ~30 years. Today patient states he feels sicker. He states that he feels weak with SOB and cough with white phlegm. He denies nausea, vomiting, abd pain, chest pain, dysuria, change in urine frequency. PMH: Alcoholism PSH: denies FH: denies SH: smoked 1ppd for 30 years, quit avout 1 month ago, h/o alcohol use, 6pack of beer every day for 30 years. quit about 1 month ago, denies illicit drug use, He works on [employer], single, lives alone Meds: denies Allergies: nkda Review of Systems - Constitutional Constitutional: Fatigue, Fever, Weakness. absent: Headache - EENT Eyes: absent: Change in Vision Nose/Mouth/Throat: absent: Nasal Congestion, Sore Throat - Respiratory Respiratory: Cough, Dyspnea. absent: Hemoptysis, Wheezing - Gastrointestinal Gastrointestinal: absent: Abdominal Pain, Constipation, Diarrhea, Nausea, Vomiting - Genitourinary Genitourinary: absent: Change in Urinary Stream, Difficulty Urinating, Dysuria, Hematuria - Musculoskeletal Musculoskeletal: absent: Back Pain, Muscle Weakness, Neck Pain, Numbness, Tingling - Integumentary Integumentary: Swelling (bilat lawer extremities). absent: Skin Ulcer, Sores, Wounds - Neurological Neurological: Weakness. absent: Dizziness, Numbness, Syncope - Hematologic/Lymphatic Hematologic: absent: Easy Bleeding, Easy Bruising Past Patient History - Past Social History Smoking Status: Former Smoker - MUSCULOSKELETAL/RHEUMATOLOGICAL Hx Falls: No - PSYCHIATRIC Hx Substance Use: No - SURGICAL HISTORY Hx Surgeries: No Meds Home Medications: Home Medication List Medication Instructions Recorded Confirmed Type Famotidine [Pepcid] 20 mg PO DAILY #30 tab 04/20/17 Rx Furosemide [Lasix] 40 mg PO DAILY #30 tab 04/20/17 Rx Lisinopril [Zestril] 10 mg PO DAILY #30 tab 04/20/17 Rx Metoprolol Tartrate [Lopressor] 50 mg PO BID #60 tab 04/20/17 Rx Spironolactone [Aldactone] 25 mg PO DAILY #30 tab 04/20/17 Rx Allergies/Adverse Reactions: Allergies Allergy/AdvReac Type Severity Reaction Status Date / Time No Known Allergies Allergy Unverified 04/09/17 01:47 - Medications Medications: Current Medications Famotidine (Pepcid) 20 mg PO DAILY [facility] Last Admin: 04/21/17 09:24 Dose: 20 mg Furosemide (Lasix) 40 mg IV DAILY [facility] Last Admin: 04/21/17 09:24 Dose: 40 mg Guaifenesin/Dextromethorphan (Robitussin Dm) 10 ml PO Q4H PRN PRN Reason: Cough and congestion Last Admin: 04/21/17 00:14 Dose: 10 ml Hydralazine HCl (Apresoline) 25 mg PO QID [facility] Azithromycin 500 mg/ Sodium (Chloride) 250 mls @ 250 mls/hr IVPB Q24H [facility] Last Admin: 04/21/17 12:21 Dose: 250 mls/hr Ceftriaxone Sodium (Rocephin Iv 1 Gm Duplex) 50 mls @ 100 mls/hr IVPB Q24H [facility] Last Admin: 04/21/17 11:17 Dose: 100 mls/hr Lisinopril (Zestril) 10 mg PO DAILY [facility] Last Admin: 04/21/17 09:24 Dose: 10 mg Metoprolol Tartrate (Lopressor) 5 mg IVP Q4 PRN PRN Reason: Heart rate Last Admin: 04/21/17 00:51 Dose: 5 mg Metoprolol Tartrate (Lopressor) 50 mg PO BID [facility] Last Admin: 04/21/17 09:24 Dose: 50 mg Ondansetron HCl (Zofran Inj) 4 mg IVP Q4 PRN PRN Reason: Nausea/Vomiting Spironolactone (Aldactone) 25 mg PO DAILY [facility] Last Admin: 04/21/17 09:24 Dose: 25 mg Physical Exam - Constitutional Appears: No Acute Distress - Head Exam Head Exam: ATRAUMATIC, NORMOCEPHALIC - Eye Exam Eye Exam: Normal appearance - ENT Exam ENT Exam: Mucous Membranes Moist - Respiratory Exam Respiratory Exam: Rhonchi, NORMAL BREATHING PATTERN. absent: Decreased Breath Sounds, Wheezes, Respiratory Distress, Stridor - Cardiovascular Exam Cardiovascular Exam: REGULAR RHYTHM, +S1, +S2. absent: Tachycardia, Systolic Murmur - GI/Abdominal Exam GI & Abdominal Exam: Normal Bowel Sounds, Soft. absent: Firm, Tenderness - Extremities Exam Additional comments: 2+ pitting edema - Neurological Exam Neurological exam: Alert, Oriented x3 - Skin Skin Exam: Dry, Intact, Normal Color, Warm Results - Vital Signs Recent Vital Signs: Last Vital Signs Temp 100.4 F H 04/21/17 08:32 Pulse 120 H 04/21/17 08:32 Resp 20 04/21/17 08:32 BP 151/94 H 04/21/17 09:24 Pulse Ox 95 04/21/17 08:32 - Labs Result Diagrams: 04/21/17 06:57 04/21/17 06:57 Labs: Laboratory Results - last 24 hr 04/21/17 04/21/17 06:57 06:57 WBC 6.4 RBC 2.73 L Hgb 8.7 L Hct 25.9 L MCV 94.8 H MCH 31.7 H MCHC 33.4 RDW 19.0 H Plt Count 126 L MPV 9.2 Neut % (Auto) 59.8 Lymph % (Auto) 24.5 Baker % (Auto) 14.4 H Eos % (Auto) 0.6 Baso % (Auto) 0.7 Neut # 3.8 Lymph # 1.6 Baker # 0.9 H Eos # 0.0 Baso # 0.0 Sodium 137 Potassium 4.2 Chloride 105 Carbon Dioxide 23 Anion Gap 13 BUN 40 H Creatinine 2.3 H Est GFR ( Amer) 37 Est GFR (Non-Af Amer) 30 Random Glucose 88 Calcium 7.9 L Total Bilirubin 1.2 AST 27 ALT 35 Alkaline Phosphatase 47 Total Protein 5.8 L Albumin 2.6 L Globulin 3.2 Albumin/Globulin Ratio 0.8 L Assessment & Plan - Assessment and Plan (Free Text) Assessment: 51 yo alcoholic male with no significant PMH admitted to hospital for anemia with HTN, acute cholecystitis now presenting with acute renal failure. Plan: 1. acute renal failure - possibly due to diuretic - will order urine lytes, urine urea, protine, creatinine, and mircoalbumin - compliment C3 and C4 - cont to monitor 2. fever - temp of 102 yesterday - pending repeat urine and blood cultures - cont abx 3. HTN - cont Lisinopril, Aldactone, Lasix, Lopressor - cont to monitor <Reji Chung - Last Filed: 04/22/17 07:02> Meds - Medications Medications: Current Medications Famotidine (Pepcid) 20 mg PO DAILY [facility] Last Admin: 04/21/17 09:24 Dose: 20 mg Furosemide (Lasix) 40 mg IV DAILY [facility] Last Admin: 04/21/17 09:24 Dose: 40 mg Guaifenesin/Dextromethorphan (Robitussin Dm) 10 ml PO Q4H PRN PRN Reason: Cough and congestion Last Admin: 04/21/17 00:14 Dose: 10 ml Hydralazine HCl (Apresoline) 25 mg PO QID [facility] Last Admin: 04/21/17 21:37 Dose: Not Given Azithromycin 500 mg/ Sodium (Chloride) 250 mls @ 250 mls/hr IVPB Q24H [facility] Last Admin: 04/21/17 12:21 Dose: 250 mls/hr Ceftriaxone Sodium (Rocephin Iv 1 Gm Duplex) 50 mls @ 100 mls/hr IVPB Q24H [facility] Last Admin: 04/21/17 11:17 Dose: 100 mls/hr Lisinopril (Zestril) 10 mg PO DAILY [facility] Last Admin: 04/21/17 09:24 Dose: 10 mg Metoprolol Tartrate (Lopressor) 5 mg IVP Q4 PRN PRN Reason: Heart rate Last Admin: 04/21/17 00:51 Dose: 5 mg Metoprolol Tartrate (Lopressor) 50 mg PO BID [facility] Last Admin: 04/21/17 18:46 Dose: 50 mg Ondansetron HCl (Zofran Inj) 4 mg IVP Q4 PRN PRN Reason: Nausea/Vomiting Spironolactone (Aldactone) 25 mg PO DAILY [facility] Last Admin: 04/21/17 09:24 Dose: 25 mg Results - Vital Signs Recent Vital Signs: Last Vital Signs Temp 98.0 F 04/21/17 23:31 Pulse 107 H 04/22/17 00:45 Resp 20 04/21/17 23:31 BP 146/90 04/21/17 23:31 Pulse Ox 99 04/21/17 23:31 - Labs Result Diagrams: 04/21/17 06:57 04/21/17 06:57 Labs: Laboratory Results - last 24 hr 04/21/17 04/21/17 04/21/17 06:57 06:57 08:00 WBC 6.4 RBC 2.73 L Hgb 8.7 L Hct 25.9 L MCV 94.8 H MCH 31.7 H MCHC 33.4 RDW 19.0 H Plt Count 126 L MPV 9.2 Neut % (Auto) 59.8 Lymph % (Auto) 24.5 Baker % (Auto) 14.4 H Eos % (Auto) 0.6 Baso % (Auto) 0.7 Neut # 3.8 Lymph # 1.6 Baker # 0.9 H Eos # 0.0 Baso # 0.0 Sodium 137 Potassium 4.2 Chloride 105 Carbon Dioxide 23 Anion Gap 13 BUN 40 H Creatinine 2.3 H Est GFR ( Amer) 37 Est GFR (Non-Af Amer) 30 Random Glucose 88 Calcium 7.9 L Total Bilirubin 1.2 AST 27 ALT 35 Alkaline Phosphatase 47 Total Protein 5.8 L Albumin 2.6 L Globulin 3.2 Albumin/Globulin Ratio 0.8 L Urine Color Urine Clarity Urine pH Ur Specific [place] Urine Protein Urine Glucose (UA) Urine Ketones Urine Blood Urine Nitrate Urine Bilirubin Urine Urobilinogen Ur Leukocyte Esterase Urine WBC (Auto) Urine RBC (Auto) Ur Squamous Epith Cells Hyaline Casts Ur Random Creatinine U Random Total Protein Ur Random Sodium Ur Random Potassium Ur Random Urea Nitrogn Urine Microalbumin Complement C3 41.0 L Complement C4 < 8.0 L 04/21/17 04/21/17 04/21/17 14:51 14:51 15:00 WBC RBC Hgb Hct MCV MCH MCHC RDW Plt Count MPV Neut % (Auto) Lymph % (Auto) Baker % (Auto) Eos % (Auto) Baso % (Auto) Neut # Lymph # Baker # Eos # Baso # Sodium Potassium Chloride Carbon Dioxide Anion Gap BUN Creatinine Est GFR ( Amer) Est GFR (Non-Af Amer) Random Glucose Calcium Total Bilirubin AST ALT Alkaline Phosphatase Total Protein Albumin Globulin Albumin/Globulin Ratio Urine Color Yellow Urine Clarity Hazy Urine pH 5.0 Ur Specific [place] 1.010 Urine Protein Negative Urine Glucose (UA) Normal Urine Ketones Negative Urine Blood 3+ H Urine Nitrate Negative Urine Bilirubin Negative Urine Urobilinogen Normal Ur Leukocyte Esterase Trace Urine WBC (Auto) 17 H Urine RBC (Auto) 36 H Ur Squamous Epith Cells < 1 Hyaline Casts 3-5 H Ur Random Creatinine U Random Total Protein Cancelled Ur Random Sodium 74 Ur Random Potassium 41.9 Ur Random Urea Nitrogn 313 Urine Microalbumin 105.0 H Complement C3 Complement C4 04/21/17 04/21/17 16:00 17:28 WBC RBC Hgb Hct MCV MCH MCHC RDW Plt Count MPV Neut % (Auto) Lymph % (Auto) Baker % (Auto) Eos % (Auto) Baso % (Auto) Neut # Lymph # Baker # Eos # Baso # Sodium Potassium Chloride Carbon Dioxide Anion Gap BUN Creatinine Est GFR ( Amer) Est GFR (Non-Af Amer) Random Glucose Calcium Total Bilirubin AST ALT Alkaline Phosphatase Total Protein Albumin Globulin Albumin/Globulin Ratio Urine Color Urine Clarity Urine pH Ur Specific [place] Urine Protein Urine Glucose (UA) Urine Ketones Urine Blood Urine Nitrate Urine Bilirubin Urine Urobilinogen Ur Leukocyte Esterase Urine WBC (Auto) Urine RBC (Auto) Ur Squamous Epith Cells Hyaline Casts Ur Random Creatinine 71.5 U Random Total Protein 29.0 H Ur Random Sodium Ur Random Potassium Ur Random Urea Nitrogn Urine Microalbumin Complement C3 Complement C4 Attending/Attestation - Attestation I have personally seen and examined this patient.: Yes I have fully participated in the care of the patient.: Yes I have reviewed all pertinent clinical information: Yes Notes (Text): Patient seen and examined with resident; I agree with the note as above with the following ammendment: 51 yo M w/ no known pmh (although with no regular medical followup), of [place] origin, with no reported past family history, initially admitted with severe anemia thought to be due to bone marrow suppression from ETOH abuse; patient transfused prbc's and underwent GI workup that revealed erosive gastropathy and peptic duodenitis but with stool occult blood negative on multiple sample; Prolonged hospital course complicated by pneumonia and worsening bilateral pleural effusions as well as marked bilateral leg/scrotal edema (edema is patient's biggest concern and he keeps reiterating his frustration that this was brought on by too much IVF administration); patient has been started on lasix in variable doses since 04/16; Nephrology service consulted today for acute renal failure with serum creatinine rising from 1.2 on 04/19 to 2.3 today; Concern now is that 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 with significant hematuria on my direct visualization of urine sediment (>40 RBC's per hpf, mostly isomorphic but some clearly dysmorphic; no definite cellular casts; rare granular casts; no significant pyuria); mild proteinuria and hypertension also point toward a nephritic process; Patient denies any joint pains, but does have history of dark colored urine; denies any previous blood transfusions or IV drug abuse; Given constellation of signs/symptoms during current hospitalization (lung involvement, extensive edema and now ARNOL), systemic vasculitis has to be considered; -checking hep B and C serologies -RF, cryoglobulin -ADITYA -HIV Ab -checking ANCA and anti-GBM Ab (although unlikely as these do not cause significant complement consumption) -patient will likely need renal biopsy (not yet discussed with patient but he does not seem amenable to more procedures and has expressed his distrust of medicine)
--- NOTE | 2017-04-21 14:20 | CP.PCM.PN ---
Subjective - Date & Time of Evaluation Date of Evaluation: 04/21/17 Time of Evaluation: 14:18 - Subjective Subjective: PGY [address] Carreno HPI: Patient seen and examined at bedside. Told him about his CXR and how he now has pneumonia requiring IV antibiotics. Told him he will need to stay until he has been afebrile for at least 24 hours. States the swelling in his legs has gone down dramatically. Objective - Vital Signs/Intake and Output Vital Signs (last 24 hours): Temp Pulse Resp BP Pulse Ox 100.4 F H 99 H 20 151/94 H 95 04/21/17 08:32 04/21/17 12:00 04/21/17 08:32 04/21/17 09:24 04/21/17 08:32 Intake and Output: 04/21/17 04/21/17 06:59 18:59 Intake Total 240 Output Total 400 Balance -160 - Medications Medications: Current Medications Famotidine (Pepcid) 20 mg PO DAILY [facility] Last Admin: 04/21/17 09:24 Dose: 20 mg Furosemide (Lasix) 40 mg IV DAILY [facility] Last Admin: 04/21/17 09:24 Dose: 40 mg Guaifenesin/Dextromethorphan (Robitussin Dm) 10 ml PO Q4H PRN PRN Reason: Cough and congestion Last Admin: 04/21/17 00:14 Dose: 10 ml Hydralazine HCl (Apresoline) 25 mg PO QID [facility] Azithromycin 500 mg/ Sodium (Chloride) 250 mls @ 250 mls/hr IVPB Q24H [facility] Last Admin: 04/21/17 12:21 Dose: 250 mls/hr Ceftriaxone Sodium (Rocephin Iv 1 Gm Duplex) 50 mls @ 100 mls/hr IVPB Q24H [facility] Last Admin: 04/21/17 11:17 Dose: 100 mls/hr Lisinopril (Zestril) 10 mg PO DAILY [facility] Last Admin: 04/21/17 09:24 Dose: 10 mg Metoprolol Tartrate (Lopressor) 5 mg IVP Q4 PRN PRN Reason: Heart rate Last Admin: 04/21/17 00:51 Dose: 5 mg Metoprolol Tartrate (Lopressor) 50 mg PO BID [facility] Last Admin: 04/21/17 09:24 Dose: 50 mg Ondansetron HCl (Zofran Inj) 4 mg IVP Q4 PRN PRN Reason: Nausea/Vomiting Spironolactone (Aldactone) 25 mg PO DAILY [facility] Last Admin: 04/21/17 09:24 Dose: 25 mg - Labs Labs: 04/21/17 06:57 04/21/17 06:57 PT 11.5 SECONDS (9.7-12.2) 04/15/17 14:04 INR 1.0 04/15/17 14:04 APTT 32 SECONDS (21-34) 04/15/17 14:04 - Constitutional Appears: Well, Non-toxic, No Acute Distress - Head Exam Head Exam: ATRAUMATIC, NORMAL INSPECTION, NORMOCEPHALIC - Eye Exam Eye Exam: EOMI - ENT Exam ENT Exam: Mucous Membranes Moist - Respiratory Exam Respiratory Exam: Rhonchi, NORMAL BREATHING PATTERN - Cardiovascular Exam Cardiovascular Exam: Tachycardia, REGULAR RHYTHM - GI/Abdominal Exam GI & Abdominal Exam: Soft. absent: Distended, Firm, Tenderness - Neurological Exam Neurological Exam: Alert, Awake, Oriented x3 - Psychiatric Exam Psychiatric exam: Anxious - Skin Skin Exam: Dry, Intact, Normal Color, Warm Assessment and Plan - Assessment and Plan (Free Text) Assessment: Acute Renal Failure * Nephro ([facility]ugni) * possibly due to diuretic * urine lytes, urine urea, protine, creatinine, and mircoalbumin - F/U * compliment C3 and C4 - F/U Community acquired PNA * CXR = PNA * Azuthromycxin 500mg IV * Rocephin 1g IV Chronic Alcoholism Fever * Spiked a 102 fever * CXR - Pneumonia * Urine culture - F/U * blood culture - F/U Anemia * H/H 8.7/25.9 * EGD: Erosive Gastropathy with no active bleedingt * Retic count 2.5 with a Haptoglobin <15. Possible rebound from BM suppression * Consult heme (Bill) * Follow up outpatient in 2 weeks for count check SOB - RESOLVED HTN * Lisinopril 10mg QD * Aldactone 25mg QD * Lasix 40 mg QD * Lopressor 25 mg BID Nonanion Gap Metabolic Acidosis - RESOLVED Tachycardia * Likely secondary to anemia * Lopressor 25 mg BID Elevated LFTs - RESOLVED Elevated CEA * Needs colonoscopy to workup anemia and elevated CEA B/L Upper Lung Nodules * Needs outpatient CT to follow in 6 months Epistaxis - RESOLVED * Minimal bleeding, did not saturate 4x4 * Stopped spontaneously Acute Cholecystitis - RESOLVED * Normal HIDA Scan Hyperkalemia - RESOLVED * K = 4.2 Hyponatremia - RESOLVED Prophylaxis * Pantoprazole 30mg PO QD * Ambulate/OOB 04/09/17: Patient transfused 2 units of PRBCs. After the first transfusion, patient was reexamined and reported that he felt much better since this morning. F/u repeat CBC after 2nd transfusion. 04/11/17: Patient Hgb dropped to 7.6 and was tachycardic, transfused 1 unit PRBC, Contacted GI ([facility]) and they deem it necessary to do an EGD in the AM to determine source of blood loss. 04/12/17: Patient has a Abdominal US with pericholecystic fluid and a thickened wall which may suggest acalculous cholecystitis. EGD showed erosive gastropathy with no active or recent bleed. 04/13/17: Administered 1/2 NS with Bicarb @ 65 to correct metabolic acidosis 04/14/17: Hgb dropped to 8.3 on AM labs. Hgb stabilized at 8.9 on PM labs. Did a NM bleeding scan that showed no active GI bleed. Will f/u with Dr. Diez for reccs. 04/16/17: H/H dropped to 7.6/22.9 from 8.9/26.0 --> will transfuse 2 units of pRBCs today 04/17/17: Normal HIDA scan, Ordered MRI of abdomen to classify spleen and liver 04/18/17: MRI of the abdomen was unremarkable. Started Aldactone, lasix and lisinopril to treat blood pressure and lower extremity edema. 04/19/17: patient was having increased SOB. said it was hard to breath but denied chest pain. Patient was in acute distress. Ordered SL Nitro, ASA 325, BiPAP, trop and ekg. Trop was negative and EKG was Sinus tachy, CXR showed small effusions. BP and HR were elevated. Added Lopressor and increased Lasix. Bladder scan was negative for retention 04/20/17: Patient was ready to be d/c today until he spiked a fever of 102. We repeated a CXR and did blood and urine cultures 04/21/17: CXR showed a pneumnia. Started on IV rocephin and azithromycin. Seen by Nephro for ARF
[2017-04-21 15:11] LABS: RBC URINE 36 /hpf (0-3); URINE BILIRUBIN NEGATIVE (NEGATIVE); URINE BLOOD 3+ (NEGATIVE); URINE COLOR Yellow (YELLOW); URINE GLUCOSE (UA) NORMAL (Normal); URINE KETONE NEGATIVE (NEGATIVE); URINE LEUKOCYTE ESTERASE TRACE Leu/uL (Negative); URINE PROTEIN NEGATIVE (NEGATIVE); URINE UROBILINOGEN NORMAL mg/dL (0.2-1.0); WBC URINE 17 /hpf (0-5)
[2017-04-22 06:41] LABS: BASO % 0.8 % (0.0-2.0); EOS % 0.6 % (0.0-4.0); LYMPH # 1.2 K/uL (1.0-4.3); MEAN CELL VOLUME 95.1 fL (80.0-94.0); MEAN CORPUSCULAR HEMOGLOBIN 31.3 pg (27.0-31.0); MEAN CORPUSCULAR HGB CONC 32.9 g/dL (33.0-37.0); MEAN PLATELET VOLUME 9.3 fL (7.2-11.7); MONO # 0.8 K/uL (0.0-0.8); MONO % 15.3 % (0.0-10.0); RED CELL DISTRIBUTION WIDTH 18.2 % (11.5-14.5); WHITE BLOOD COUNT 5.5 K/uL (4.8-10.8)
[2017-04-22 06:58] LABS: POTASSIUM 4.1 mmol/L (3.6-5.2)
[2017-04-22 07:00] LABS: BILIRUBIN,TOTAL 0.9 mg/dL (0.2-1.3); TOTAL PROTEIN 5.7 g/dL (6.3-8.3)
[2017-04-22 07:04] LABS: ALB/GLOB RATIO 0.8 (1.0-2.1)
--- NOTE | 2017-04-22 07:44 | CP.PCM.PN ---
<Shiraz Cha - Last Filed: 04/22/17 07:51> Subjective - Date & Time of Evaluation Date of Evaluation: 04/22/17 Time of Evaluation: 07:43 - Subjective Subjective: PGY-[address] Condon HPI: Patient seen and examined at bedside. Doing well. Objective - Vital Signs/Intake and Output Vital Signs (last 24 hours): Temp Pulse Resp BP Pulse Ox 98.0 F 107 H 20 146/90 99 04/21/17 23:31 04/22/17 00:45 04/21/17 23:31 04/21/17 23:31 04/21/17 23:31 Intake and Output: 04/22/17 04/22/17 06:59 18:59 Intake Total 240 Balance 240 - Medications Medications: Current Medications Famotidine (Pepcid) 20 mg PO DAILY [facility] Last Admin: 04/21/17 09:24 Dose: 20 mg Furosemide (Lasix) 40 mg IV DAILY [facility] Last Admin: 04/21/17 09:24 Dose: 40 mg Guaifenesin/Dextromethorphan (Robitussin Dm) 10 ml PO Q4H PRN PRN Reason: Cough and congestion Last Admin: 04/21/17 00:14 Dose: 10 ml Hydralazine HCl (Apresoline) 25 mg PO QID [facility] Last Admin: 04/21/17 21:37 Dose: Not Given Azithromycin 500 mg/ Sodium (Chloride) 250 mls @ 250 mls/hr IVPB Q24H [facility] Last Admin: 04/21/17 12:21 Dose: 250 mls/hr Ceftriaxone Sodium (Rocephin Iv 1 Gm Duplex) 50 mls @ 100 mls/hr IVPB Q24H [facility] Last Admin: 04/21/17 11:17 Dose: 100 mls/hr Lisinopril (Zestril) 10 mg PO DAILY [facility] Last Admin: 04/21/17 09:24 Dose: 10 mg Metoprolol Tartrate (Lopressor) 5 mg IVP Q4 PRN PRN Reason: Heart rate Last Admin: 04/21/17 00:51 Dose: 5 mg Metoprolol Tartrate (Lopressor) 50 mg PO BID [facility] Last Admin: 04/21/17 18:46 Dose: 50 mg Ondansetron HCl (Zofran Inj) 4 mg IVP Q4 PRN PRN Reason: Nausea/Vomiting Spironolactone (Aldactone) 25 mg PO DAILY [facility] Last Admin: 04/21/17 09:24 Dose: 25 mg - Labs Labs: 04/22/17 06:30 04/22/17 06:30 PT 11.5 SECONDS (9.7-12.2) 04/15/17 14:04 INR 1.0 04/15/17 14:04 APTT 32 SECONDS (21-34) 04/15/17 14:04 Assessment and Plan - Assessment and Plan (Free Text) Assessment: Acute Renal Failure * Nephro (Mugni) * possibly due to diuretic * urine lytes, urine urea, protine, creatinine, and mircoalbumin - F/U * compliment C3 and C4 - F/U Community acquired PNA * CXR = PNA * Azuthromycxin 500mg IV * Rocephin 1g IV Chronic Alcoholism Fever * Spiked a 102 fever * CXR - Pneumonia * Urine culture - F/U * blood culture - F/U Anemia * H/H 8.7/25.9 * EGD: Erosive Gastropathy with no active bleedingt * Retic count 2.5 with a Haptoglobin <15. Possible rebound from BM suppression * Consult heme (Bill) * Follow up outpatient in 2 weeks for count check SOB - RESOLVED HTN * Lisinopril 10mg QD * Aldactone 25mg QD * Lasix 40 mg QD * Lopressor 25 mg BID Nonanion Gap Metabolic Acidosis - RESOLVED Tachycardia * Likely secondary to anemia * Lopressor 25 mg BID Elevated LFTs - RESOLVED Elevated CEA * Needs colonoscopy to workup anemia and elevated CEA B/L Upper Lung Nodules * Needs outpatient CT to follow in 6 months Epistaxis - RESOLVED * Minimal bleeding, did not saturate 4x4 * Stopped spontaneously Acute Cholecystitis - RESOLVED * Normal HIDA Scan Hyperkalemia - RESOLVED * K = 4.2 Hyponatremia - RESOLVED Prophylaxis * Pantoprazole 30mg PO QD * Ambulate/OOB 04/09/17: Patient transfused 2 units of PRBCs. After the first transfusion, patient was reexamined and reported that he felt much better since this morning. F/u repeat CBC after 2nd transfusion. 04/11/17: Patient Hgb dropped to 7.6 and was tachycardic, transfused 1 unit PRBC, Contacted GI ([facility]) and they deem it necessary to do an EGD in the AM to determine source of blood loss. 04/12/17: Patient has a Abdominal US with pericholecystic fluid and a thickened wall which may suggest acalculous cholecystitis. EGD showed erosive gastropathy with no active or recent bleed. 04/13/17: Administered 1/2 NS with Bicarb @ 65 to correct metabolic acidosis 04/14/17: Hgb dropped to 8.3 on AM labs. Hgb stabilized at 8.9 on PM labs. Did a NM bleeding scan that showed no active GI bleed. Will f/u with Dr. Diez for reccs. 04/16/17: H/H dropped to 7.6/22.9 from 8.9/26.0 --> will transfuse 2 units of pRBCs today 04/17/17: Normal HIDA scan, Ordered MRI of abdomen to classify spleen and liver 04/18/17: MRI of the abdomen was unremarkable. Started Aldactone, lasix and lisinopril to treat blood pressure and lower extremity edema. 04/19/17: patient was having increased SOB. said it was hard to breath but denied chest pain. Patient was in acute distress. Ordered SL Nitro, ASA 325, BiPAP, trop and ekg. Trop was negative and EKG was Sinus tachy, CXR showed small effusions. BP and HR were elevated. Added Lopressor and increased Lasix. Bladder scan was negative for retention 04/20/17: Patient was ready to be d/c today until he spiked a fever of 102. We repeated a CXR and did blood and urine cultures 04/21/17: CXR showed a pneumnia. Started on IV rocephin and azithromycin. Seen by Nephro for [facility] <Mario Condon - Last Filed: 04/22/17 08:41> Subjective - Subjective Subjective: Patient was seen and examined by me. Patient did not report any shortness of breath or coughing overnight. Denied chest pain. Denied also having fever. The medical team was considering discharging the patient yesterday however noted fever as well as Chest XRAY findings suggesting pneumonia and so he was placed on abx Ceftriaxone and Azithromycin. Also he has had for a few days now increase in creatine. Today he is again low Hgb of 7.9. He denies blood per rectum or vommitting. Irma this is related to prolonged use of alcohol affecting his liver function as well as bone marrow suppression. I explained this to patient. His creatine is also remains elevated as well. He has been getting lasix as well as lisinopril. BP is stable so will hold the lisonorpil for a day, also decreased the lasix. He was getting lasix due to swelling in his legs and extremities, probably from low albumin. Objective - Vital Signs/Intake and Output Vital Signs (last 24 hours): Temp Pulse Resp BP Pulse Ox 98.2 F 107 H 20 154/90 H 96 04/22/17 07:10 04/22/17 07:10 04/22/17 07:10 04/22/17 07:10 04/22/17 07:10 Intake and Output: 04/22/17 04/22/17 06:59 18:59 Intake Total 240 Balance 240 - Medications Medications: Current Medications Famotidine (Pepcid) 20 mg PO DAILY [facility] Last Admin: 04/21/17 09:24 Dose: 20 mg Furosemide (Lasix) 20 mg IV DAILY [facility] Guaifenesin/Dextromethorphan (Robitussin Dm) 10 ml PO Q4H PRN PRN Reason: Cough and congestion Last Admin: 04/21/17 00:14 Dose: 10 ml Hydralazine HCl (Apresoline) 25 mg PO QID [facility] Last Admin: 04/21/17 21:37 Dose: Not Given Azithromycin 500 mg/ Sodium (Chloride) 250 mls @ 250 mls/hr IVPB Q24H [facility] Last Admin: 04/21/17 12:21 Dose: 250 mls/hr Ceftriaxone Sodium (Rocephin Iv 1 Gm Duplex) 50 mls @ 100 mls/hr IVPB Q24H [facility] Last Admin: 04/21/17 11:17 Dose: 100 mls/hr Lisinopril (Zestril) 10 mg PO DAILY [facility] Last Admin: 04/21/17 09:24 Dose: 10 mg Metoprolol Tartrate (Lopressor) 5 mg IVP Q4 PRN PRN Reason: Heart rate Last Admin: 04/21/17 00:51 Dose: 5 mg Metoprolol Tartrate (Lopressor) 50 mg PO BID [facility] Last Admin: 04/21/17 18:46 Dose: 50 mg Ondansetron HCl (Zofran Inj) 4 mg IVP Q4 PRN PRN Reason: Nausea/Vomiting Spironolactone (Aldactone) 25 mg PO DAILY [facility] Last Admin: 04/21/17 09:24 Dose: 25 mg - Labs Labs: 04/22/17 06:30 04/22/17 06:30 PT 11.5 SECONDS (9.7-12.2) 04/15/17 14:04 INR 1.0 04/15/17 14:04 APTT 32 SECONDS (21-34) 04/15/17 14:04 - Constitutional Appears: No Acute Distress, Unkempt, Chronically Ill - Head Exam Head Exam: NORMAL INSPECTION, NORMOCEPHALIC - Eye Exam Eye Exam: EOMI, Normal appearance - ENT Exam ENT Exam: Mucous Membranes Moist - Respiratory Exam Respiratory Exam: Clear to Ausculation Bilateral, NORMAL BREATHING PATTERN - Cardiovascular Exam Cardiovascular Exam: REGULAR RHYTHM - GI/Abdominal Exam GI & Abdominal Exam: Soft, Normal Bowel Sounds. absent: Firm, Guarding, Rigid, Tenderness - Extremities Exam Extremities Exam: Pedal Edema Additional comments: +1 edema bilaterally - Neurological Exam Neurological Exam: Alert, Awake, Oriented x3 Neuro motor strength exam: Left Upper Extremity: 5, Right Upper Extremity: 5 - Psychiatric Exam Psychiatric exam: Normal Affect, Normal Mood - Skin Skin Exam: Normal Color, Warm Assessment and Plan - Assessment and Plan (Free Text) Assessment: 04/22/2017: Per review of the previous notes, this is a 51 year old male who initially came in with anemia and suspected GI bleeding. EGD has been negative and fecult occult blood studies have been negative. Currently he is on abx for pneumonia after developing fever and CXRAY findings. With reguards to the PNA, continue IV abx, monitor for fever. Currently afebrile. There was fever yesterday of 100.4 He has anemia - likely related to anemia of chronic disease/bone marror suppresion (he has underwent GI work up including EGD while here. Stool studies for blood negative). Currently came down to 7.9. The Hgb is lower today so will transfuse one unit of PRBCs Further more creatine is still elevated - so will hold lisinopril and decrease the IV lasix the patient is getting. Nephrology is now following patient as well. Chronic alcohol use: Currently is not having any withdrawl symptoms when I asked the patient. Denied nausea, denied vommitting, denied shaking, denied tremors thank you Mario Condon
[2017-04-22] MEDS: cefTRIAXone IV 1 gm in Dextros 50 ML IVPB SCH (10:47)
[2017-04-22 17:12] LABS: BASO # 0.1 K/uL (0.0-0.2); BASO % 0.9 % (0.0-2.0); EOS # 0.1 K/uL (0.0-0.7); EOS % 0.8 % (0.0-4.0); HEMATOCRIT 25.1 % (35.0-51.0); LYMPH # 1.4 K/uL (1.0-4.3); LYMPH % 21.5 % (20.0-40.0); MEAN CELL VOLUME 94.6 fL (80.0-94.0); MEAN CORPUSCULAR HEMOGLOBIN 31.9 pg (27.0-31.0); MEAN CORPUSCULAR HGB CONC 33.8 g/dL (33.0-37.0); MEAN PLATELET VOLUME 9.9 fL (7.2-11.7); MONO # 0.9 K/uL (0.0-0.8); MONO % 14.1 % (0.0-10.0); RED CELL DISTRIBUTION WIDTH 17.8 % (11.5-14.5); WHITE BLOOD COUNT 6.4 K/uL (4.8-10.8)
--- NOTE | 2017-04-22 18:32 | CARD ---
APPROVED REPORT EXAM: Two-dimensional and M-mode echocardiogram with Doppler and color Doppler. Other Information Quality : GoodRhythm : Atrial Fibrillation INDICATION Pleural Effusion Congestive Heart Failure COPD Alcohol abuse/ smoker M-Mode DIMENSIONS Left Atrium (MM)3.97 (2.5-4.0cm)IVSd0.90 (0.7-1.1cm) Aortic Root3.39 (2.2-3.7cm)LVDd5.16 (4.0-5.6cm) Aortic Cusp Exc.1.91 (1.5-2.0cm)PWd0.78 (0.7-1.1cm) FS (%) 31 %LVDs3.54 (2.0-3.8cm) LVEF (%)59 (>50%) Mitral Valve MV A Iisxmdmk807.5cm/sE/A ratio0.0 TDI E/Lateral E'0.0E/Medial E'0.0 Tricuspid Valve TR Peak [id number]/sTR Peak [id number] LEFT VENTRICLE The left ventricle is normal size. There is normal left ventricular wall thickness. The left ventricular function is normal. The left ventricular ejection fraction is within the normal range. ef = 60-65% There is normal LV segmental wall motion. The left ventricular diastolic function is normal. RIGHT VENTRICLE The right ventricle is normal size. There is normal right ventricular wall thickness. The right ventricular systolic function is normal. ATRIA The left atrium is mildly dilated. The right atrium size is normal. The interatrial septum is intact with no evidence for an atrial septal defect. AORTIC VALVE The aortic valve is normal in structure. No aortic regurgitation is present. There is no aortic valvular stenosis. There is no aortic valvular vegetation. MITRAL VALVE The mitral valve is normal in structure. There is no evidence of mitral valve prolapse. There is no mitral valve stenosis. Mitral regurgitation is mild. TRICUSPID VALVE The tricuspid valve is normal in structure. There is mild tricuspid regurgitation. There is mild pulmonary hypertension. pap 45 rap 5 There is no tricuspid valve prolapse or vegetation. There is no tricuspid valve stenosis. PULMONIC VALVE The pulmonary valve is normal in structure. There is no pulmonic valvular regurgitation. There is no pulmonic valvular stenosis. GREAT VESSELS The aortic root is normal in size. The ascending aorta is normal in size. The pulmonary artery is normal. The IVC is normal in size and collapses >50% with inspiration. PERICARDIAL EFFUSION There is no pericardial effusion. There is large left pleural effusion. <Conclusion> The left ventricular ejection fraction is within the normal range. ef = 60-65% The left ventricular diastolic function is normal. The left atrium is mildly dilated. Mitral regurgitation is mild. There is mild tricuspid regurgitation. pap 45 rap 5 There is large left pleural effusion.
--- NOTE | 2017-04-22 22:05 | CP.PCM.PN ---
Subjective - Date & Time of Evaluation Date of Evaluation: 04/22/17 Time of Evaluation: 17:00 - Subjective Subjective: Has chest discomfort Objective - Vital Signs/Intake and Output Vital Signs (last 24 hours): Temp Pulse Resp BP Pulse Ox 98.2 F 108 H 22 150/96 H 98 04/22/17 21:46 04/22/17 21:46 04/22/17 21:46 04/22/17 21:46 04/22/17 20:54 Intake and Output: 04/22/17 04/23/17 18:59 06:59 Intake Total 240 0 Balance 240 0 - Medications Medications: Current Medications Azithromycin (Zithromax) 250 mg PO DAILY [facility] Last Admin: 04/22/17 13:07 Dose: 250 mg Famotidine (Pepcid) 20 mg PO DAILY [facility] Last Admin: 04/22/17 09:42 Dose: 20 mg Furosemide (Lasix) 20 mg IV DAILY [facility] Last Admin: 04/22/17 09:42 Dose: 20 mg Guaifenesin/Dextromethorphan (Robitussin Dm) 10 ml PO Q4H PRN PRN Reason: Cough and congestion Last Admin: 04/21/17 00:14 Dose: 10 ml Hydralazine HCl (Apresoline) 25 mg PO QID [facility] Last Admin: 04/22/17 13:07 Dose: 25 mg Ceftriaxone Sodium (Rocephin Iv 1 Gm Duplex) 50 mls @ 100 mls/hr IVPB Q24H [facility] Last Admin: 04/22/17 10:47 Dose: 100 mls/hr Lisinopril (Zestril) 10 mg PO DAILY [facility] Last Admin: 04/21/17 09:24 Dose: 10 mg Metoprolol Tartrate (Lopressor) 5 mg IVP Q4 PRN PRN Reason: Heart rate Last Admin: 04/21/17 00:51 Dose: 5 mg Metoprolol Tartrate (Lopressor) 50 mg PO BID [facility] Last Admin: 04/22/17 18:37 Dose: 50 mg Ondansetron HCl (Zofran Inj) 4 mg IVP Q4 PRN PRN Reason: Nausea/Vomiting Spironolactone (Aldactone) 25 mg PO DAILY [facility] Last Admin: 04/22/17 09:42 Dose: 25 mg - Labs Labs: 04/22/17 17:04 04/22/17 06:30 PT 11.5 SECONDS (9.7-12.2) 04/15/17 14:04 INR 1.0 04/15/17 14:04 APTT 32 SECONDS (21-34) 04/15/17 14:04 - Head Exam Head Exam: ATRAUMATIC - Eye Exam Eye Exam: Normal appearance - ENT Exam ENT Exam: Mucous Membranes Dry - Respiratory Exam Respiratory Exam: NORMAL BREATHING PATTERN - Cardiovascular Exam Cardiovascular Exam: +S1, +S2 - GI/Abdominal Exam GI & Abdominal Exam: Normal Bowel Sounds - Extremities Exam Extremities Exam: Pedal Edema Assessment and Plan (1) Anemia Assessment & Plan: chronic disease s/p PRBC transfusion Status: Acute (2) Splenomegaly Assessment & Plan: ?pHTN Status: Acute
[2017-04-22 22:48] VITALS: RESP 20
--- NOTE | 2017-04-22 23:11 | CP.PCM.PN ---
Objective - Vital Signs/Intake and Output Vital Signs (last 24 hours): Temp Pulse Resp BP Pulse Ox 98.3 F 108 H 20 156/95 H 98 04/22/17 22:16 04/22/17 22:16 04/22/17 22:16 04/22/17 22:16 04/22/17 20:54 Intake and Output: 04/22/17 04/23/17 18:59 06:59 Intake Total 240 0 Balance 240 0 - Medications Medications: Current Medications Azithromycin (Zithromax) 250 mg PO DAILY [facility] Last Admin: 04/22/17 13:07 Dose: 250 mg Famotidine (Pepcid) 20 mg PO DAILY [facility] Last Admin: 04/22/17 09:42 Dose: 20 mg Furosemide (Lasix) 20 mg IV DAILY [facility] Last Admin: 04/22/17 09:42 Dose: 20 mg Guaifenesin/Dextromethorphan (Robitussin Dm) 10 ml PO Q4H PRN PRN Reason: Cough and congestion Last Admin: 04/21/17 00:14 Dose: 10 ml Hydralazine HCl (Apresoline) 25 mg PO QID [facility] Last Admin: 04/22/17 22:53 Dose: Not Given Ceftriaxone Sodium (Rocephin Iv 1 Gm Duplex) 50 mls @ 100 mls/hr IVPB Q24H [facility] Last Admin: 04/22/17 10:47 Dose: 100 mls/hr Lisinopril (Zestril) 10 mg PO DAILY [facility] Last Admin: 04/21/17 09:24 Dose: 10 mg Metoprolol Tartrate (Lopressor) 5 mg IVP Q4 PRN PRN Reason: Heart rate Last Admin: 04/21/17 00:51 Dose: 5 mg Metoprolol Tartrate (Lopressor) 50 mg PO BID [facility] Last Admin: 04/22/17 18:37 Dose: 50 mg Ondansetron HCl (Zofran Inj) 4 mg IVP Q4 PRN PRN Reason: Nausea/Vomiting Spironolactone (Aldactone) 25 mg PO DAILY [facility] Last Admin: 04/22/17 09:42 Dose: 25 mg - Labs Labs: 04/22/17 17:04 04/22/17 06:30 PT 11.5 SECONDS (9.7-12.2) 08/12/17 14:04 INR 1.0 04/15/17 14:04 APTT 32 SECONDS (21-34) 04/15/17 14:04
--- NOTE | 2017-04-23 07:29 | CP.PCM.PN ---
Addendum entered and electronically signed by Shiraz Cha DO 04/23/17 08: 21: Physical Exam: Gen: NAD HEENT: atraumatic normocephalic, PERRL, No LAD CV: tachycardic, no MRG Lungs: Rhonchi in the RUL, Rales in the RLL Abdomen: Soft, ND, NT, normal bowel sounds Extremities: radial pulses tachy 2+, B/l Lower extremity swelling Original Note: <Shiraz Cha - Last Filed: 04/23/17 07:30> Subjective - Date & Time of Evaluation Date of Evaluation: 04/23/17 Time of Evaluation: 07:29 - Subjective Subjective: PGY1 Note for Dr. Martinez HPI: Patient see and examined at bedside. BiPAP on. Says it help him sleep. May need to be D/c with CPAP. Coughing. No other complaints at this time. Patient is concerned about his blood count and I explained to him that we gave him 1 unit yesterday and will recheck his Hgb today. We discussed that we need to follow up with the recommendation of the machine stamper. Also states that the swelling in his legs is going down. Patient agrees with the plan. Objective - Vital Signs/Intake and Output Vital Signs (last 24 hours): Temp Pulse Resp BP Pulse Ox 98.4 F 102 H 20 153/96 H 98 04/23/17 00:25 04/23/17 01:00 04/23/17 00:25 04/23/17 00:25 04/22/17 23:30 Intake and Output: 04/23/17 04/23/17 06:59 18:59 Intake Total 840 Balance 840 - Medications Medications: Current Medications Azithromycin (Zithromax) 250 mg PO DAILY [facility] Last Admin: 04/22/17 13:07 Dose: 250 mg Famotidine (Pepcid) 20 mg PO DAILY [facility] Last Admin: 04/22/17 09:42 Dose: 20 mg Furosemide (Lasix) 20 mg IV DAILY [facility] Last Admin: 04/22/17 09:42 Dose: 20 mg Guaifenesin/Dextromethorphan (Robitussin Dm) 10 ml PO Q4H PRN PRN Reason: Cough and congestion Last Admin: 04/21/17 00:14 Dose: 10 ml Hydralazine HCl (Apresoline) 25 mg PO QID [facility] Last Admin: 04/22/17 22:53 Dose: Not Given Ceftriaxone Sodium (Rocephin Iv 1 Gm Duplex) 50 mls @ 100 mls/hr IVPB Q24H [facility] Last Admin: 04/22/17 10:47 Dose: 100 mls/hr Lisinopril (Zestril) 10 mg PO DAILY [facility] Last Admin: 04/21/17 09:24 Dose: 10 mg Metoprolol Tartrate (Lopressor) 5 mg IVP Q4 PRN PRN Reason: Heart rate Last Admin: 04/21/17 00:51 Dose: 5 mg Metoprolol Tartrate (Lopressor) 50 mg PO BID [facility] Last Admin: 04/22/17 18:37 Dose: 50 mg Ondansetron HCl (Zofran Inj) 4 mg IVP Q4 PRN PRN Reason: Nausea/Vomiting Spironolactone (Aldactone) 25 mg PO DAILY [facility] Last Admin: 04/22/17 09:42 Dose: 25 mg - Labs Labs: 04/22/17 17:04 04/22/17 06:30 PT 11.5 SECONDS (9.7-12.2) 04/15/17 14:04 INR 1.0 04/15/17 14:04 APTT 32 SECONDS (21-34) 04/15/17 14:04 Assessment and Plan - Assessment and Plan (Free Text) Assessment: Acute Renal Failure * Nephro (Mugni) * Possibly due to diuretic * Urine Studies = Total protein 29, Urea 313, K+ 41.9, Na+ 74, Cr 71.5, Mircoalbumin 105 * C3 = 41/C4 = <8 * F/U reccs Community acquired PNA * CXR = PNA * Zithromax 500mg IV * Rocephin 1g IV SOB * BiPAP at night Fever * Afebrile for >24 hrs * Urine culture - negative x2 days * blood culture - negative x2 days Anemia * H/H 8.5/25.1 * EGD: Erosive Gastropathy with no active bleeding * Retic count 2.5 with a Haptoglobin <15. Possible rebound from BM suppression * Consult heme (Bill) * Follow up outpatient in 2 weeks for count check * Splenomegaly = Possibly 2/2 to pHTN HTN * Lisinopril 10mg QD * Aldactone 25mg QD * Lasix 20 mg QD * Lopressor 25 mg BID * Hydrazaline 25 PO Q6 Tachycardia * Likely secondary to anemia * Lopressor 25 mg BID * Lopressor 5 IV Q4 PRN * Cardizem 30 PO Q6 Elevated CEA * Needs colonoscopy to workup anemia and elevated CEA B/L Upper Lung Nodules * Needs outpatient CT to follow in 6 months Prophylaxis * Pantoprazole 30mg PO QD * Ambulate/OOB 04/09/17: Patient transfused 2 units of PRBCs. After the first transfusion, patient was reexamined and reported that he felt much better since this morning. F/u repeat CBC after 2nd transfusion. 04/11/17: Patient Hgb dropped to 7.6 and was tachycardic, transfused 1 unit PRBC, Contacted GI ([facility]) and they deem it necessary to do an EGD in the AM to determine source of blood loss. 04/12/17: Patient has a Abdominal US with pericholecystic fluid and a thickened wall which may suggest acalculous cholecystitis. EGD showed erosive gastropathy with no active or recent bleed. 04/13/17: Administered 1/2 NS with Bicarb @ 65 to correct metabolic acidosis 04/14/17: Hgb dropped to 8.3 on AM labs. Hgb stabilized at 8.9 on PM labs. Did a NM bleeding scan that showed no active GI bleed. Will f/u with Dr. Diez for reccs. 04/16/17: H/H dropped to 7.6/22.9 from 8.9/26.0 --> will transfuse 2 units of pRBCs today 04/17/17: Normal HIDA scan, Ordered MRI of abdomen to classify spleen and liver 04/18/17: MRI of the abdomen was unremarkable. Started Aldactone, lasix and lisinopril to treat blood pressure and lower extremity edema. 04/19/17: patient was having increased SOB. said it was hard to breath but denied chest pain. Patient was in acute distress. Ordered SL Nitro, ASA 325, BiPAP, trop and ekg. Trop was negative and EKG was Sinus tachy, CXR showed small effusions. BP and HR were elevated. Added Lopressor and increased Lasix. Bladder scan was negative for retention 04/20/17: Patient was ready to be d/c today until he spiked a fever of 102. We repeated a CXR and did blood and urine cultures 04/21/17: CXR showed a pneumonia. Started on IV rocephin and azithromycin. Seen by Nephro for ARF 04/22/17: Hgb of 7.9 secondary to prolonged alcohol use affecting liver function and bone marrow suppression; Bp was stable so held lisinopril and decreased lasix <Priyank Martinez - Last Filed: 04/23/17 16:19> Objective - Vital Signs/Intake and Output Vital Signs (last 24 hours): Temp Pulse Resp BP Pulse Ox 97.6 F 100 H 20 156/60 H 99 04/23/17 08:17 04/23/17 11:52 04/23/17 08:17 04/23/17 11:37 04/23/17 08:17 Intake and Output: 04/23/17 04/23/17 06:59 18:59 Intake Total 840 Balance 840 - Medications Medications: Current Medications Azithromycin (Zithromax) 250 mg PO DAILY [facility] Last Admin: 04/23/17 11:36 Dose: 250 mg Famotidine (Pepcid) 20 mg PO DAILY [facility] Last Admin: 04/23/17 11:37 Dose: 20 mg Guaifenesin/Dextromethorphan (Robitussin Dm) 10 ml PO Q4H PRN PRN Reason: Cough and congestion Last Admin: 04/21/17 00:14 Dose: 10 ml Ceftriaxone Sodium (Rocephin Iv 1 Gm Duplex) 50 mls @ 100 mls/hr IVPB Q24H [facility] Last Admin: 04/23/17 11:37 Dose: 100 mls/hr Lisinopril (Zestril) 10 mg PO DAILY [facility] Last Admin: 04/21/17 09:24 Dose: 10 mg Metoprolol Tartrate (Lopressor) 5 mg IVP Q4 PRN PRN Reason: Heart rate Last Admin: 04/21/17 00:51 Dose: 5 mg Metoprolol Tartrate (Lopressor) 50 mg PO BID [facility] Last Admin: 04/23/17 11:37 Dose: 50 mg Ondansetron HCl (Zofran Inj) 4 mg IVP Q4 PRN PRN Reason: Nausea/Vomiting Spironolactone (Aldactone) 25 mg PO DAILY [facility] Last Admin: 04/23/17 11:36 Dose: 25 mg - Labs Labs: 04/23/17 08:32 04/23/17 08:32 PT 11.5 SECONDS (9.7-12.2) 04/15/17 14:04 INR 1.0 04/15/17 14:04 APTT 32 SECONDS (21-34) 04/15/17 14:04 Attending/Attestation - Attestation I have personally seen and examined this patient.: Yes I have fully participated in the care of the patient.: Yes I have reviewed all pertinent clinical information, including history, physical exam and plan: Yes Notes (Text): 04/23/17 16:07 Patient was seen and examined at 8:45 AM 04/23/17 670 B Exam, assessment and plan were thoroughly gone over with the resident. Upon ROS: Patient is frustrated by being here so long as well as concerns for having to pay for his hospital stay as he has no insurance Scrotal swelling has reduced significantly In addition to the above on Exam: 2+ pitting edema bilateral LE from feet to just inferior to the tibial tuberosities Scrotal edema has significantly reduced Assessments: ARF Pneumonia Fever Anemia: S/P 6th unit PRBC on 04/22/17. We need for this to be stable and then can D/C patient with instructions for further F/U with Heme/Onc Dr. Khan SOB: resolved HTN: refusing medications as explained above NonAnion Gap Metabolic Acidosis: resolved Tachycardia Elevated LFTs: resolved Elevated CEA: need colonoscopy as outpatient Bilateral Lung Nodules: repeat CT Chest in 6 months Epistaxis: resolved Acute Cholecystitis: as seen on CT Abd/Pelvis and U/S however HIDA and MRI Abd did not show this. Asymptomatic Hyperkalemia: resolved Hyponatremia: resolved Explained to Step Dad and Mom (who called the floor after my exam) via phone the multiple medical issues and that we were awaiting for the HgB/Hct to remain stable before discharging patient. Explained the dangers to parents as well to patient about discharge PRIOR to stability of Vitals and labs. Priyank Martinez D.O.
[2017-04-23 08:58] LABS: BASO % 0.9 % (0.0-2.0); EOS # 0.1 K/uL (0.0-0.7); LYMPH # 1.2 K/uL (1.0-4.3); LYMPH % 23.1 % (20.0-40.0); MEAN CELL VOLUME 94.9 fL (80.0-94.0); MEAN CORPUSCULAR HEMOGLOBIN 31.5 pg (27.0-31.0); MEAN CORPUSCULAR HGB CONC 33.2 g/dL (33.0-37.0); MONO # 0.9 K/uL (0.0-0.8); MONO % 16.1 % (0.0-10.0); NRBC % 0.1 % (0.0-2.0); RED CELL DISTRIBUTION WIDTH 17.4 % (11.5-14.5); WHITE BLOOD COUNT 5.4 K/uL (4.8-10.8)
[2017-04-23 09:29] LABS: POTASSIUM 3.9 mmol/L (3.6-5.2)
[2017-04-23 09:32] LABS: ALB/GLOB RATIO 0.8 (1.0-2.1); CALCIUM 7.8 mg/dl (8.6-10.4); TOTAL PROTEIN 5.5 g/dL (6.3-8.3)
[2017-04-23] MEDS: cefTRIAXone IV 1 gm in Dextros 50 ML IVPB SCH (11:37)
--- NOTE | 2017-04-23 15:17 | CP.PCM.PN ---
Subjective - Date & Time of Evaluation Date of Evaluation: 04/23/17 Time of Evaluation: 15:14 - Subjective Subjective: Pt was requesting to speak with me regarding his blood pressure medications. He said he did not like the side effect profiles of the following medications: Hydralazine, Cardizem, Lasix. I told him these were to control his blood pressure and his heart rate and if he did not take his these medications his blood pressure and heart rate will continue to rise. I told him that the risk of uncontrolled HR and BP include stroke and heart attack and could be fatal. The patient still refused these meds. DW Dr. Martinez Objective - Vital Signs/Intake and Output Vital Signs (last 24 hours): Temp Pulse Resp BP Pulse Ox 97.6 F 100 H 20 156/60 H 99 04/23/17 08:17 04/23/17 11:52 04/23/17 08:17 04/23/17 11:37 04/23/17 08:17 Intake and Output: 04/23/17 04/23/17 06:59 18:59 Intake Total 840 Balance 840 - Medications Medications: Current Medications Azithromycin (Zithromax) 250 mg PO DAILY [facility] Last Admin: 04/23/17 11:36 Dose: 250 mg Diltiazem HCl (Cardizem) 30 mg PO QID [facility] Last Admin: 04/23/17 14:51 Dose: Not Given Famotidine (Pepcid) 20 mg PO DAILY [facility] Last Admin: 04/23/17 11:37 Dose: 20 mg Guaifenesin/Dextromethorphan (Robitussin Dm) 10 ml PO Q4H PRN PRN Reason: Cough and congestion Last Admin: 04/21/17 00:14 Dose: 10 ml Ceftriaxone Sodium (Rocephin Iv 1 Gm Duplex) 50 mls @ 100 mls/hr IVPB Q24H [facility] Last Admin: 04/23/17 11:37 Dose: 100 mls/hr Lisinopril (Zestril) 10 mg PO DAILY [facility] Last Admin: 04/21/17 09:24 Dose: 10 mg Metoprolol Tartrate (Lopressor) 5 mg IVP Q4 PRN PRN Reason: Heart rate Last Admin: 04/21/17 00:51 Dose: 5 mg Metoprolol Tartrate (Lopressor) 50 mg PO BID [facility] Last Admin: 04/23/17 11:37 Dose: 50 mg Ondansetron HCl (Zofran Inj) 4 mg IVP Q4 PRN PRN Reason: Nausea/Vomiting Spironolactone (Aldactone) 25 mg PO DAILY [facility] Last Admin: 04/23/17 11:36 Dose: 25 mg - Labs Labs: 04/23/17 08:32 04/23/17 08:32 PT 11.5 SECONDS (9.7-12.2) 04/15/17 14:04 INR 1.0 04/15/17 14:04 APTT 32 SECONDS (21-34) 04/15/17 14:04
--- NOTE | 2017-04-23 23:58 | CP.PCM.PN ---
Subjective - Date & Time of Evaluation Date of Evaluation: 04/23/17 Time of Evaluation: 13:00 - Subjective Subjective: Patient reports breathing improved; still with leg swelling; Objective - Vital Signs/Intake and Output Vital Signs (last 24 hours): Temp Pulse Resp BP Pulse Ox 99.1 F 123 H 20 140/83 95 04/23/17 17:13 04/23/17 17:13 04/23/17 17:13 04/23/17 17:24 04/23/17 17:13 - Medications Medications: Current Medications Azithromycin (Zithromax) 250 mg PO DAILY [facility] Last Admin: 04/23/17 11:36 Dose: 250 mg Famotidine (Pepcid) 20 mg PO DAILY [facility] Last Admin: 04/23/17 11:37 Dose: 20 mg Guaifenesin/Dextromethorphan (Robitussin Dm) 10 ml PO Q4H PRN PRN Reason: Cough and congestion Last Admin: 04/21/17 00:14 Dose: 10 ml Ceftriaxone Sodium (Rocephin Iv 1 Gm Duplex) 50 mls @ 100 mls/hr IVPB Q24H [facility] Last Admin: 04/23/17 11:37 Dose: 100 mls/hr Lisinopril (Zestril) 10 mg PO DAILY [facility] Last Admin: 04/21/17 09:24 Dose: 10 mg Metoprolol Tartrate (Lopressor) 5 mg IVP Q4 PRN PRN Reason: Heart rate Last Admin: 04/21/17 00:51 Dose: 5 mg Metoprolol Tartrate (Lopressor) 50 mg PO BID [facility] Last Admin: 04/23/17 17:24 Dose: 50 mg Ondansetron HCl (Zofran Inj) 4 mg IVP Q4 PRN PRN Reason: Nausea/Vomiting Spironolactone (Aldactone) 25 mg PO DAILY [facility] Last Admin: 04/23/17 11:36 Dose: 25 mg - Labs Labs: 04/23/17 08:32 04/23/17 08:32 PT 11.5 SECONDS (9.7-12.2) 04/15/17 14:04 INR 1.0 04/15/17 14:04 APTT 32 SECONDS (21-34) 04/15/17 14:04 - Constitutional Appears: Well, No Acute Distress - Head Exam Head Exam: NORMAL INSPECTION - Eye Exam Eye Exam: Normal appearance. absent: Scleral icterus - ENT Exam ENT Exam: Mucous Membranes Moist - Respiratory Exam Respiratory Exam: Clear to Ausculation Bilateral, NORMAL BREATHING PATTERN. absent: Rales, Rhonchi - Cardiovascular Exam Cardiovascular Exam: RRR, +S1, +S2 - GI/Abdominal Exam GI & Abdominal Exam: Soft. absent: Distended, Tenderness - Extremities Exam Additional comments: marked bilateral lower leg edema; - Neurological Exam Neurological Exam: Alert, Awake - Psychiatric Exam Psychiatric exam: Normal Affect, Normal Mood - Skin Skin Exam: Normal Color, Warm. 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
[2017-04-24 07:39] LABS: BASO # 0.1 K/uL (0.0-0.2); EOS # 0.1 K/uL (0.0-0.7); EOS % 1.3 % (0.0-4.0); HEMATOCRIT 27.4 % (35.0-51.0); LYMPH # 1.5 K/uL (1.0-4.3); LYMPH % 27.2 % (20.0-40.0); MEAN CELL VOLUME 94.5 fL (80.0-94.0); MEAN CORPUSCULAR HEMOGLOBIN 31.2 pg (27.0-31.0); MONO # 0.9 K/uL (0.0-0.8); MONO % 16.9 % (0.0-10.0); NRBC % 0.1 % (0.0-2.0); RED CELL DISTRIBUTION WIDTH 17.1 % (11.5-14.5); WHITE BLOOD COUNT 5.5 K/uL (4.8-10.8)
[2017-04-24 07:48] LABS: POTASSIUM 3.9 mmol/L (3.6-5.2)
[2017-04-24 07:51] LABS: ALB/GLOB RATIO 0.8 (1.0-2.1); BILIRUBIN,TOTAL 0.8 mg/dL (0.2-1.3); TOTAL PROTEIN 5.9 g/dL (6.3-8.3)
--- NOTE | 2017-04-24 08:51 | CP.PCM.PN ---
Subjective - Date & Time of Evaluation Date of Evaluation: 04/24/17 Time of Evaluation: 08:49 - Subjective Subjective: PGY1 Note for Dr. Martinez HPI: Patient seen and examined at bedside. Doing well with no complaints at this time. Resting comfortably in bed with BiPAP on. Has not had any trouble breathing overnight. No chest pain. Complains that swelling is still present in bilateral lower extremities. Still refusing BP meds. Objective - Vital Signs/Intake and Output Vital Signs (last 24 hours): Temp Pulse Resp BP Pulse Ox 97.6 F 107 H 20 154/90 H 100 04/24/17 08:32 04/24/17 08:32 04/24/17 08:32 04/24/17 08:32 04/24/17 08:32 Intake and Output: 04/24/17 04/24/17 06:59 18:59 Intake Total 240 Balance 240 - Medications Medications: Current Medications Azithromycin (Zithromax) 250 mg PO DAILY [facility] Last Admin: 04/23/17 11:36 Dose: 250 mg Famotidine (Pepcid) 20 mg PO DAILY [facility] Last Admin: 04/23/17 11:37 Dose: 20 mg Guaifenesin/Dextromethorphan (Robitussin Dm) 10 ml PO Q4H PRN PRN Reason: Cough and congestion Last Admin: 04/21/17 00:14 Dose: 10 ml Ceftriaxone Sodium (Rocephin Iv 1 Gm Duplex) 50 mls @ 100 mls/hr IVPB Q24H [facility] Last Admin: 04/23/17 11:37 Dose: 100 mls/hr Lisinopril (Zestril) 10 mg PO DAILY [facility] Last Admin: 04/21/17 09:24 Dose: 10 mg Metoprolol Tartrate (Lopressor) 5 mg IVP Q4 PRN PRN Reason: Heart rate Last Admin: 04/21/17 00:51 Dose: 5 mg Metoprolol Tartrate (Lopressor) 50 mg PO BID [facility] Last Admin: 04/23/17 17:24 Dose: 50 mg Ondansetron HCl (Zofran Inj) 4 mg IVP Q4 PRN PRN Reason: Nausea/Vomiting Spironolactone (Aldactone) 25 mg PO DAILY [facility] Last Admin: 04/23/17 11:36 Dose: 25 mg - Labs Labs: 04/24/17 07:20 04/24/17 07:20 PT 11.5 SECONDS (9.7-12.2) 04/15/17 14:04 INR 1.0 04/15/17 14:04 APTT 32 SECONDS (21-34) 04/15/17 14:04 - Constitutional Appears: Well, Non-toxic, No Acute Distress - Eye Exam Eye Exam: EOMI - ENT Exam ENT Exam: Mucous Membranes Moist - Respiratory Exam Respiratory Exam: Clear to Ausculation Bilateral. absent: Rales, Rhonchi, Wheezes, Stridor - Cardiovascular Exam Cardiovascular Exam: Tachycardia. absent: Gallop, Rubs, Murmur - GI/Abdominal Exam GI & Abdominal Exam: Soft, Normal Bowel Sounds. absent: Distended, Tenderness - Neurological Exam Neurological Exam: Alert, Awake, Oriented x3 - Psychiatric Exam Psychiatric exam: Normal Affect, Normal Mood - Skin Skin Exam: Dry, Intact, Normal Color, Warm Assessment and Plan - Assessment and Plan (Free Text) Assessment: Acute Renal Failure * Nephro (Mugni) * Possibly due to diuretic * Urine Studies = Total protein 29, Urea 313, K+ 41.9, Na+ 74, Cr 71.5, Mircoalbumin 105 * C3 = 41/C4 = <8 * F/U reccs Community acquired PNA * CXR = PNA * Zithromax 500mg IV * Rocephin 1g IV SOB * BiPAP at night Fever * Afebrile for >24 hrs * Urine culture - negative x2 days * blood culture - negative x2 days Anemia * H/H 8.5/25.1 * EGD: Erosive Gastropathy with no active bleeding * Retic count 2.5 with a Haptoglobin <15. Possible rebound from BM suppression * Consult heme (Bill) * Follow up outpatient in 2 weeks for count check * Splenomegaly = Possibly 2/2 to pHTN HTN * Lisinopril 10mg QD * Aldactone 25mg QD * Lasix 20 mg QD * Lopressor 25 mg BID * Hydrazaline 25 PO Q6 Tachycardia * Likely secondary to anemia * Lopressor 25 mg BID * Lopressor 5 IV Q4 PRN * Cardizem 30 PO Q6 Elevated CEA * Needs colonoscopy to workup anemia and elevated CEA B/L Upper Lung Nodules * Needs outpatient CT to follow in 6 months Prophylaxis * Pantoprazole 30mg PO QD * Ambulate/OOB 8/6/17: Patient transfused 2 units of PRBCs. After the first transfusion, patient was reexamined and reported that he felt much better since this morning. F/u repeat CBC after 2nd transfusion. 04/11/17: Patient Hgb dropped to 7.6 and was tachycardic, transfused 1 unit PRBC, Contacted GI ([facility]) and they deem it necessary to do an EGD in the AM to determine source of blood loss. 04/12/17: Patient has a Abdominal US with pericholecystic fluid and a thickened wall which may suggest acalculous cholecystitis. EGD showed erosive gastropathy with no active or recent bleed. 04/13/17: Administered 1/2 NS with Bicarb @ 65 to correct metabolic acidosis 04/14/17: Hgb dropped to 8.3 on AM labs. Hgb stabilized at 8.9 on PM labs. Did a NM bleeding scan that showed no active GI bleed. Will f/u with Dr. Diez for reccs. 04/16/17: H/H dropped to 7.6/22.9 from 8.9/26.0 --> will transfuse 2 units of pRBCs today 04/17/17: Normal HIDA scan, Ordered MRI of abdomen to classify spleen and liver 04/18/17: MRI of the abdomen was unremarkable. Started Aldactone, lasix and lisinopril to treat blood pressure and lower extremity edema. 04/19/17: patient was having increased SOB. said it was hard to breath but denied chest pain. Patient was in acute distress. Ordered SL Nitro, ASA 325, BiPAP, trop and ekg. Trop was negative and EKG was Sinus tachy, CXR showed small effusions. BP and HR were elevated. Added Lopressor and increased Lasix. Bladder scan was negative for retention 04/20/17: Patient was ready to be d/c today until he spiked a fever of 102. We repeated a CXR and did blood and urine cultures 04/21/17: CXR showed a pneumonia. Started on IV rocephin and azithromycin. 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
--- NOTE | 2017-04-24 10:55 | CP.PCM.PN ---
<Herman Rivasa - Last Filed: 04/24/17 13:14> Subjective - Date & Time of Evaluation Date of Evaluation: 04/24/17 Time of Evaluation: 10:53 - Subjective Subjective: PGY-2 Neph[address] progress note for Dr[address] Chung Patient seen and examined at bedside. No acute distress. Patient states he feels overall better, but tired this morning. He denies any dysuria, increased frequency, fever, headaches, abd pain, n/v/d/c. Objective - Vital Signs/Intake and Output Vital Signs (last 24 hours): Temp Pulse Resp BP Pulse Ox 97.6 F 107 H 20 154/90 H 100 04/24/17 08:32 04/24/17 08:32 04/24/17 08:32 04/24/17 08:32 04/24/17 08:32 Intake and Output: 04/24/17 04/24/17 06:59 18:59 Intake Total 240 Balance 240 - Medications Medications: Current Medications Azithromycin (Zithromax) 250 mg PO DAILY [facility] Last Admin: 04/23/17 11:36 Dose: 250 mg Famotidine (Pepcid) 20 mg PO DAILY [facility] Last Admin: 04/23/17 11:37 Dose: 20 mg Guaifenesin/Dextromethorphan (Robitussin Dm) 10 ml PO Q4H PRN PRN Reason: Cough and congestion Last Admin: 04/21/17 00:14 Dose: 10 ml Ceftriaxone Sodium (Rocephin Iv 1 Gm Duplex) 50 mls @ 100 mls/hr IVPB Q24H [facility] Last Admin: 04/23/17 11:37 Dose: 100 mls/hr Lisinopril (Zestril) 10 mg PO DAILY [facility] Last Admin: 04/21/17 09:24 Dose: 10 mg Metoprolol Tartrate (Lopressor) 5 mg IVP Q4 PRN PRN Reason: Heart rate Last Admin: 04/21/17 00:51 Dose: 5 mg Metoprolol Tartrate (Lopressor) 50 mg PO BID [facility] Last Admin: 04/23/17 17:24 Dose: 50 mg Ondansetron HCl (Zofran Inj) 4 mg IVP Q4 PRN PRN Reason: Nausea/Vomiting Spironolactone (Aldactone) 25 mg PO DAILY [facility] Last Admin: 04/23/17 11:36 Dose: 25 mg - Labs Labs: 04/24/17 07:20 04/24/17 07:20 PT 11.5 SECONDS (9.7-12.2) 04/15/17 14:04 INR 1.0 04/15/17 14:04 APTT 32 SECONDS (21-34) 04/15/17 14:04 - Constitutional Appears: Well, No Acute Distress - Head Exam Head Exam: ATRAUMATIC, NORMOCEPHALIC - Eye Exam Eye Exam: Normal appearance - ENT Exam ENT Exam: Mucous Membranes Moist - Respiratory Exam Respiratory Exam: Clear to Ausculation Bilateral, NORMAL BREATHING PATTERN. absent: Rales, Rhonchi, Wheezes, Respiratory Distress - Cardiovascular Exam Cardiovascular Exam: REGULAR RHYTHM, +S1, +S2. absent: Tachycardia, Murmur - GI/Abdominal Exam GI & Abdominal Exam: Soft, Normal Bowel Sounds. absent: Distended, Tenderness - Extremities Exam Additional comments: +1 pitting edema bilaterally - Neurological Exam Neurological Exam: Alert, Awake, Oriented x3 Assessment and Plan - Assessment and Plan (Free Text) Assessment: 51 yo alcoholic male with no significant PMH admitted to hospital for anemia with HTN, acute cholecystitis now presenting with acute renal failure secondary to Glomerulonephritis with significant complement consumption . Plan: 1. Acute renal failure - Likely due to an acute GN, decreased complement - renal function slightly improved, cr and BUN improved - stable electrolyte and volume status; - avoid nephrotoxic agents; - holding lisinopril 2. 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 HTN - BP stable - cont aldactone 25 mg daily and metoprolol 50 mg bid - start norvasc 5mg - off lasix due to patient's insistence; 4. Anemia - Hgb stable after prbc transfusion - cont to monitor <Mughni,Reji - Last Filed: 04/26/17 00:32> Objective - Vital Signs/Intake and Output Vital Signs (last 24 hours): Temp Pulse Resp BP Pulse Ox 98.4 F 100 H 20 150/95 H 98 04/24/17 13:27 04/24/17 13:27 04/24/17 13:27 04/24/17 13:27 04/24/17 13:27 - Labs Labs: 04/24/17 07:20 04/24/17 07:20 PT 11.5 SECONDS (9.7-12.2) 04/15/17 14:04 INR 1.0 04/15/17 14:04 APTT 32 SECONDS (21-34) 04/15/17 14:04 Assessment and Plan (1) Acute renal failure Status: Acute (2) Glomerulonephritis Status: Acute (3) HTN (hypertension) Status: Acute (4) Anemia Status: Acute Attending/Attestation - Attestation I have personally seen and examined this patient.: Yes I have fully participated in the care of the patient.: Yes I have reviewed all pertinent clinical information, including history, physical exam and plan: Yes Notes (Text): Patient seen and examined with resident; I agree with the above note with the following additions/edits: Patient with no significant pmh admitted with severe anemia in the setting of alcohol abuse; hospital course complicated by PNA and acute renal failure; ARNOL consistent with acute glomerulonephritis with marked microscopic hematuria and complement consumption; renal function now improving and so doubt any significant utility of renal biopsy unless renal function worsens again; suspect post-infectious etiology although timeframe of infection causing GN doesn't clearly fit; no positive blood cultures; obtaining viral serology for CMV, EBV and parvovirus (especially with presentation of anemia); HTN still uncontrolled but may improve once GN subsides; on metoprolol and aldactone, continue same; will give script for amlodipine 5 mg daily if BP remains elevated; Patient should have labs in 7-10 days and should see us in clinic within next 2 weeks;
[2017-04-24] MEDS: cefTRIAXone IV 1 gm in Dextros 50 ML IVPB SCH (12:00)
--- NOTE | 2017-04-24 13:12 | CP.PCM.PN ---
Subjective - Date & Time of Evaluation Date of Evaluation: 04/24/17 Time of Evaluation: 11:30 - Subjective Subjective: Patient was seen and examined at 11:30 AM 04/24/17 670 B Upon ROS: Patient is frustrated by being here so long as well as concerns for having to pay for his hospital stay as he has no insurance Scrotal swelling has reduced significantly In addition to the above on Exam: 2+ pitting edema bilateral LE from feet to just inferior to the tibial tuberosities Scrotal edema has significantly reduced Assessments: ARF: likely secondary to post infectious process. Spoke with Transferrer Dr. Chung and ok for discharge from renal standpoint. Blood work ordered by Dr. Chung to be done before discharge and Dr. Chung stated he will follow up. Dr. Chung has instructed patient to follow up with him through the [facility]. Pneumonia: complete PO Antibiotic (Ciprfoloxacin 500 mg PO 2x/day through ) Fever: resolved Anemia: S/P 6th unit PRBC on 04/22/17. Since then HgB/Hct has remained stable and has actually increased to above 9 today. Patient is asymptomatic but is tachycardiac (but I feel that this may have to do with him not taking his blood pressure medications). Patient to have monitoring of his HgB/Hct through the [facility]. Patient will also have to schedule follow up with [facility] Dr. Mark Khan [phone] SOB: resolved HTN: refusing to take his blood pressure medications because of the side effects that he read on the internet. Explained to patient yesterday 04/23/17 and today 04/24/17 that medicine involved weighing risk vs benefit and that his benefit far outweighed the risks if he did not take his blood pressure medication such as CVA, CT, further kidney damaged. He understands these risks and he was implored to take his medications as prescribed at discharge. NonAnion Gap Metabolic Acidosis: resolved Tachycardia Elevated LFTs: resolved Elevated CEA: need colonoscopy as outpatient arranged through the [facility]. Bilateral Lung Nodules: repeat CT Chest in 6 months through [facility]. Epistaxis: resolved Acute Cholecystitis: as seen on CT Abd/Pelvis and U/S however HIDA and MRI Abd did not show this. Asymptomatic Hyperkalemia: resolved Hyponatremia: resolved A copy of the following instructions will need to be provided to the patient upon discharge: 1). Schedule follow up with the [facility] located at [address] in [place], [place] [address]. Call [phone] on 04/25/17 to schedule this appointment to take place in within the next 7 days. The doctors there will be your Primary Care Physicians and help to coordinate your care. 2). Through the [facility] you will need to arrange the following: Monitoring of your Hemoglobin to make sure that it is remaining stable. Scheduling of a Colonoscopy to check your colon to make sure that there are no masses. Follow up with [facility] Dr. Mark Khan [phone] in 2 weeks Follow up with [facility] Specialist Dr. Chung in [address] Scan of your Chest in 6 months time to make sure that the nodules in your lungs are stable. 3). You were given prescriptions for the following medications. Please have them filled at your pharmacy and take as directed: Ciprofloxacin 500 mg, 1 tablet with breakfast and 1 tablet with dinner until finished, Disp: #12, NO refills Aldactone 25 mg, 1 tablet by mouth 1x/day with breakfast (7 AM), Disp #30, NO refills Metoprolol Tartrate 50 mg, 1 tablet by mouth 2x/day (9 AM and 9 PM), Disp #60, NO refills Lisinopril 10 mg, 1 tablet by mouth 1x/day (1 PM), Disp #30, NO refills Norvasc 5 mg, 1 tablet by mouth 1x/day (5 PM), Disp #30, NO refills 4). Please ask your pharmacist which probiotic he/she recommends and take once a day at lunch time through 05/31/17. 5). Failure to follow the above instructions will have serious consequences to your health. 6). Please take care and be well. Priyank Martinez D.O. Objective - Vital Signs/Intake and Output Vital Signs (last 24 hours): Temp Pulse Resp BP Pulse Ox 97.6 F 118 H 20 157/94 H 100 04/24/17 08:32 04/24/17 10:58 04/24/17 08:32 04/24/17 10:59 04/24/17 08:32 Intake and Output: 08/21/17 08/21/17 06:59 18:59 Intake Total 240 Balance 240 - Medications Medications: Current Medications Amlodipine Besylate (Norvasc) 5 mg PO DAILY [facility] Azithromycin (Zithromax) 250 mg PO DAILY [facility] Last Admin: 04/24/17 10:59 Dose: 250 mg Famotidine (Pepcid) 20 mg PO DAILY [facility] Last Admin: 04/24/17 10:59 Dose: 20 mg Guaifenesin/Dextromethorphan (Robitussin Dm) 10 ml PO Q4H PRN PRN Reason: Cough and congestion Last Admin: 04/21/17 00:14 Dose: 10 ml Ceftriaxone Sodium (Rocephin Iv 1 Gm Duplex) 50 mls @ 100 mls/hr IVPB Q24H [facility] Last Admin: 04/24/17 12:00 Dose: 100 mls/hr Lisinopril (Zestril) 10 mg PO DAILY [facility] Last Admin: 04/21/17 09:24 Dose: 10 mg Metoprolol Tartrate (Lopressor) 5 mg IVP Q4 PRN PRN Reason: Heart rate Last Admin: 04/21/17 00:51 Dose: 5 mg Metoprolol Tartrate (Lopressor) 50 mg PO BID [facility] Last Admin: 04/24/17 10:59 Dose: 50 mg Ondansetron HCl (Zofran Inj) 4 mg IVP Q4 PRN PRN Reason: Nausea/Vomiting Spironolactone (Aldactone) 25 mg PO DAILY [facility] Last Admin: 04/24/17 10:59 Dose: 25 mg - Labs Labs: 04/24/17 07:20 04/24/17 07:20 PT 11.5 SECONDS (9.7-12.2) 04/15/17 14:04 INR 1.0 04/15/17 14:04 APTT 32 SECONDS (21-34) 04/15/17 14:04
[2017-04-24 13:30] VITALS: BP 150/95; PULSE 100; TEMP 98.4; O2SAT 98
--- NOTE | 2017-04-25 17:54 | CARD ---
APPROVED REPORT EKG Measurement Heart [id number] <Conclusion> Sinus tachycardia Otherwise normal ECG
--- NOTE | 2017-04-25 17:55 | CARD ---
APPROVED REPORT EKG Measurement Heart [id number] <Conclusion> Sinus tachycardia Nonspecific ST abnormality Abnormal ECG
[2017-04-25 19:30] LABS: CYTOMEGALOVIRUS AB (IGG) 0.94 U/mL
[2017-04-25 20:52] LABS: CYTOMEGALOVIRUS AB (IGM) <30.00 AU/mL
--- NOTE | 2017-04-26 14:33 | CARD ---
APPROVED REPORT EKG Measurement Heart [id number] <Conclusion> Sinus tachycardia Otherwise normal ECG
[2017-04-27 12:13] LABS: PARVOVIRUS B19 AB (IGG) 0.6 (<0.9)
[2017-04-27 14:17] LABS: PARVOVIRUS B19 AB (IGM) 0.3 (<0.9)
--- NOTE | 2017-05-07 14:52 | CP.PCM.DIS ---
Provider - Provider Date of Admission: 04/09/17 05:09 Attending physician: Priyank Martinez MD Primary care physician: None Consults: Hematology Dr. Zahida Khan Nephrology Dr. Chung Gastroenterology Dr. Diez Surgery Dr. Zamora Time Spent in preparation of Discharge (in minutes): 40 Hospital Course - Lab Results Lab Results: Micro Results 04/20/17 16:47 Blood Blood Culture - Final NO GROWTH AFTER 5 DAYS 04/20/17 16:47 Blood Gram Stain - Final TEST NOT PERFORMED 04/20/17 15:40 Blood Blood Culture - Final NO GROWTH AFTER 5 DAYS 04/20/17 15:40 Blood Gram Stain - Final TEST NOT PERFORMED 04/20/17 06:00 Urine Urine Culture - Final No Growth (<1,000 CFU/ML) 04/16/17 22:59 Urine Urine Culture - Final No Growth (<1,000 CFU/ML) 04/12/17 17:00 Blood Blood Culture - Final NO GROWTH AFTER 5 DAYS 04/12/17 17:00 Blood Gram Stain - Final TEST NOT PERFORMED 04/12/17 16:30 Blood Blood Culture - Final NO GROWTH AFTER 5 DAYS 04/12/17 16:30 Blood Gram Stain - Final TEST NOT PERFORMED 04/12/17 20:30 Urine Urine Culture - Final Gram Positive Cocci Most Recent Lab Values WBC 5.5 K/uL (4.8-10.8) 04/24/17 07:20 RBC 2.90 Mil/uL (4.40-5.90) L 04/24/17 07:20 Hgb 9.1 g/dL (12.0-18.0) L 04/24/17 07:20 Hct 27.4 % (35.0-51.0) L 04/24/17 07:20 MCV 94.5 fL (80.0-94.0) H 04/24/17 07:20 MCH 31.2 pg (27.0-31.0) H 04/24/17 07:20 MCHC 33.0 g/dL (33.0-37.0) 04/24/17 07:20 RDW 17.1 % (11.5-14.5) H 04/24/17 07:20 Plt Count 180 K/uL (130-400) 04/24/17 07:20 MPV 10.0 fL (7.2-11.7) 04/24/17 07:20 Neut % (Auto) 53.6 % (50.0-75.0) 04/24/17 07:20 Lymph % (Auto) 27.2 % (20.0-40.0) 04/24/17 07:20 Cook % (Auto) 16.9 % (0.0-10.0) H 04/24/17 07:20 Eos % (Auto) 1.3 % (0.0-4.0) 04/24/17 07:20 Baso % (Auto) 1.0 % (0.0-2.0) 04/24/17 07:20 Neut # 3.0 K/uL (1.8-7.0) 04/24/17 07:20 Lymph # 1.5 K/uL (1.0-4.3) 04/24/17 07:20 Cook # 0.9 K/uL (0.0-0.8) H 04/24/17 07:20 Eos # 0.1 K/uL (0.0-0.7) 04/24/17 07:20 Baso # 0.1 K/uL (0.0-0.2) 04/24/17 07:20 Neutrophils % (Manual) 75 % (50-75) 04/17/17 07:56 Band Neutrophils % 3 % (0-2) H 04/17/17 07:56 Lymphocytes % (Manual) 17 % (20-40) L 04/17/17 07:56 Monocytes % (Manual) 5 % (0-10) 04/17/17 07:56 Metamyelocytes % 2 % (0-0) H 04/12/17 06:10 Differential Comment 04/09/17 08:00 Platelet Estimate Normal (NORMAL) 04/17/17 07:56 Hypochromasia (manual) Slight 04/17/17 07:56 Anisocytosis (manual) Slight 04/17/17 07:56 Macrocytosis (manual) Slight 04/12/17 06:10 Retic Count 2.1 % (0.5-1.5) H 04/23/17 08:32 Haptoglobin <15 mg/dL (43-212) L 04/09/17 12:19 PT 11.5 SECONDS (9.7-12.2) 04/15/17 14:04 INR 1.0 04/15/17 14:04 APTT 32 SECONDS (21-34) 04/15/17 14:04 Puncture Site Rra 04/12/17 16:05 pCO2 26 mm/Hg (35-45) L 04/12/17 16:05 pO2 105 mm/Hg (80-100) H 04/12/17 16:05 HCO3 16.3 mmol/L (21-28) L 04/12/17 16:05 ABG pH 7.33 (7.35-7.45) L 04/12/17 16:05 ABG Total CO2 14.5 mmol/L (22-28) L 04/12/17 16:05 ABG O2 Saturation 99.2 % (95-98) H 04/12/17 16:05 ABG Base Excess -11.0 mmol/L (-2.0-3.0) L 04/12/17 16:05 ABG Hemoglobin 8.5 g/dL (11.7-17.4) L 04/12/17 16:05 ABG Carboxyhemoglobin 3.0 % (0.5-1.5) H 04/12/17 16:05 POC ABG HHb (Measured) 0.8 % (0.0-5.0) 04/12/17 16:05 ABG Methemoglobin 1.0 % (0.0-3.0) 04/12/17 16:05 Chandra Test Pos 04/12/17 16:05 A-a O2 Difference 12.0 mm/Hg 04/12/17 16:05 Respiratory Index 0.1 04/12/17 16:05 Hgb O2 Saturation 95.2 % (95.0-98.0) 04/12/17 16:05 FiO2 21.0 % 04/12/17 16:05 Sodium 138 mmol/L (132-148) 04/24/17 07:20 Potassium 3.9 mmol/L (3.6-5.2) 04/24/17 07:20 Chloride 104 mmol/L (98-107) 04/24/17 07:20 Carbon Dioxide 22 mmol/L (22-30) 04/24/17 07:20 Anion Gap 16 (10-20) 04/24/17 07:20 BUN 49 mg/dL (9-20) H 04/24/17 07:20 Creatinine 1.9 MG/DL (0.8-1.5) H 04/24/17 07:20 Est GFR ( Amer) 46 04/24/17 07:20 Est GFR (Non-Af Amer) 38 04/24/17 07:20 Random Glucose 85 mg/dL (75-110) 04/24/17 07:20 Calcium 8.0 mg/dl (8.6-10.4) L 04/24/17 07:20 Iron 104 ug/dL (49-181) 04/09/17 08:00 TIBC 214 ug/dL (250-450) L 04/09/17 08:00 % Saturation 49 (20-55) 04/09/17 08:00 Ferritin 4760.0 ng/mL 04/09/17 08:00 Total Bilirubin 0.8 mg/dL (0.2-1.3) 04/24/17 07:20 AST 26 U/L (17-59) 04/24/17 07:20 ALT 37 U/L (21-72) 04/24/17 07:20 Alkaline Phosphatase 50 U/L (38-126) 04/24/17 07:20 Lactate Dehydrogenase 1685 U/L (313-618) H 04/19/17 07:21 Troponin I 0.0230 ng/mL (0.00-0.120) 04/19/17 11:57 Total Protein 5.9 g/dL (6.3-8.3) L 04/24/17 07:20 Albumin 2.6 g/dL (3.5-5.0) L 04/24/17 07:20 Globulin 3.3 gm/dL (2.2-3.9) 04/24/17 07:20 Albumin/Globulin Ratio 0.8 (1.0-2.1) L 04/24/17 07:20 Lipase 457 U/L (23-300) H 04/09/17 02:12 Carcinoembryonic Ag 3.6 ng/mL (0-3.0) H 04/09/17 12:19 Prostate Specific Ag 0.297 ng/mL (0.00-4.0) 04/09/17 12:19 Vitamin B12 779 pg/mL (239-931) 04/09/17 08:00 Folate > 20.0 ng/mL 04/09/17 08:00 Thyroxine (T4) 7.94 ug/dL (5.5-11.0) 04/09/17 02:12 Total T3 1.07 nmol/L (1.49-2.60) L 04/09/17 02:12 Urine Color Yellow (YELLOW) 04/21/17 14:51 Urine Clarity Hazy (Clear) 04/21/17 14:51 Urine pH 5.0 (5.0-8.0) 04/21/17 14:51 Ur Specific Branch 1.010 (1.003-1.030) 04/21/17 14:51 Urine Protein Negative mg/dL (NEGATIVE) 04/21/17 14:51 Urine Glucose (UA) Normal mg/dL (Normal) 04/21/17 14:51 Urine Ketones Negative mg/dL (NEGATIVE) 04/21/17 14:51 Urine Blood 3+ (NEGATIVE) H 04/21/17 14:51 Urine Nitrate Negative (NEGATIVE) 04/21/17 14:51 Urine Bilirubin Negative (NEGATIVE) 04/21/17 14:51 Urine Urobilinogen Normal mg/dL (0.2-1.0) 04/21/17 14:51 Ur Leukocyte Esterase Trace Veronica/uL (Negative) 04/21/17 14:51 Urine WBC (Auto) 17 /hpf (0-5) H 04/21/17 14:51 Urine RBC (Auto) 36 /hpf (0-3) H 04/21/17 14:51 Ur Squamous Epith Cells < 1 /hpf (0-5) 04/21/17 14:51 Urine Bacteria Rare (<OCC) 04/09/17 07:15 Hyaline Casts 3-5 /lpf (0-2) H 04/21/17 14:51 Ur Random Creatinine 71.5 mg/dL 04/21/17 17:28 U Random Total Protein 29.0 mg/dL (0.0-12.0) H 04/21/17 16:00 Ur Random Sodium 74 mmol/L 04/21/17 15:00 Ur Random Potassium 41.9 mmol/L 04/21/17 15:00 Ur Random Urea Nitrogn 313 mg/dL 04/21/17 15:00 Urine Microalbumin 105.0 mg/L (0.0-16.6) H 04/21/17 14:51 Stool Occult Blood Negative (NEGATIVE) 04/16/17 22:34 Urine Opiates Screen Negative (NEGATIVE) 04/09/17 07:15 Urine Methadone Screen Negative (NEGATIVE) 04/09/17 07:15 Ur Barbiturates Screen Negative (NEGATIVE) 04/09/17 07:15 Ur Phencyclidine Scrn Negative (NEGATIVE) 04/09/17 07:15 Ur Amphetamines Screen Negative (NEGATIVE) 04/09/17 07:15 U Benzodiazepines Scrn Negative (NEGATIVE) 04/09/17 07:15 U Oth Cocaine Metabols Negative (NEGATIVE) 04/09/17 07:15 U Cannabinoids Screen Negative (NEGATIVE) 04/09/17 07:15 Serum Cryoglobulins Negative (NEGATIVE) 04/22/17 11:20 Rheum Arthritis Panel Negative (NEGATIVE) 04/24/17 07:21 ADITYA 6 Profile Positive (NEGATIVE) H 04/22/17 06:30 ADITYA Titer 1:160 H 04/22/17 06:30 ADITYA Pattern Speckled H 04/22/17 06:30 ANCA Screen Negative (NEGATIVE) 04/22/17 11:20 c-ANCA Titer TNP 04/22/17 11:20 Proteinase 3 (PR3) <1.0 AI (<1.0) 04/22/17 11:20 p-ANCA Titer TNP 04/22/17 11:20 Atypical p-ANCA Titer TNP 04/22/17 11:20 Myeloperoxidase Ab <1.0 AI (<1.0) 04/22/17 11:20 Glomerular Base Mem IgG <1.0 AI (<1.0) 04/22/17 11:20 Complement C3 41.0 mg/dL (88.0-165.0) L 04/21/17 08:00 Complement C4 < 8.0 mg/dL (14.0-44.0) L 04/21/17 08:00 RPR Nonreactive (NONREACTIVE) 04/24/17 13:46 CMV IgG Ab 0.94 U/mL H 04/24/17 13:46 CMV IgM Ab <30.00 AU/mL 04/24/17 13:46 EBV Capsid Ag IgM Ab 51.10 U/mL H 04/24/17 13:46 Hepatitis A IgM Ab Negative (NEGATIVE) 04/22/17 06:30 Hep Bs Antigen Negative (NEGATIVE) 04/22/17 06:30 Hep B Core IgM Ab Negative (NEGATIVE) 04/22/17 06:30 Hepatitis C Antibody Negative (NEGATIVE) 04/22/17 06:30 HIV 1&2 Antibody Screen Negative (NEGATIVE) 04/22/17 06:30 Parvovirus B19 IgG Ab 0.6 (<0.9) 04/24/17 13:46 Parvovirus B19 IgM Ab 0.3 (<0.9) 04/24/17 13:46 Parvovirus Interpret (()) 04/24/17 13:46 Blood Type A POSITIVE 04/22/17 09:13 Antibody Screen Positive 04/22/17 09:13 Antibody Identification Anti E Non Specific Antibody 04/22/17 09:13 Antibody Identification Anti E Non Specific Antibody 04/22/17 09:13 FABIAN, Poly Interpret Negative (NEGATIVE) 04/16/17 13:58 Crossmatch See Detail 04/16/17 13:58 - Hospital Course Hospital Course: Hospital Course: Patient admitted to the ED on 04/09/17 for two history of weakness/drowsiness In the ED a CT scan was performed 04/09/17. It showed no acute intracranial abnormality. Chest xray was performed 04/09/17. Diffuse interstitial lung markings were noted. Patchy infiltrate in righ lung base. Biaplical pleural thickening with upper lobe nodularity ECG was performed 04/09/17. Results showed sinus tachy nonspecific ST abnormality HgB was found to be low after admission and was transfused 2 units Patient states a history of alcholism and a Abdominal U/S was ordered U/S performed of 04/11/17. It showed partially distended gallbladder with wall thickening. Pericholecystic fluid and minimal sludge, suggesting possible acalculous acholecystitis. An upper GI bleed was suspected due to his history of alcholism and low HgB Endoscopy was performed 04/12/17. No recent or active bleeding was noting and biopsies were taken Dr. Zamora, general surgery, was consulted as per Abdominal u/s results for possible cholecystectomy once HgB remains stable HgB dropped to 8.3 on AM labs. 04/14/17 GI bleed scan was performed 04/14/17. Results were negative for acute or active bleeding. Abdomen/ Pelvis CT was performd 04/14/17. Small bilateral pleural effusion with bilateral lower lobe atelectasis. Mild splenomegaly with atypical apperance of spleen. Possible splenic lacerations or atypical splenic metastasis suspected at this time Chest Xray performed 04/15/17. SHowed bilateral lower lobe infiltrates and bilateral pleural effusons. Consulted Heme, Dr. Khan, for possible malignancy Echo performed 04/16/17. Sinus tachy otherwise normal A HIDA scan was performed on 04/17/17. Results were normal with patent cystic duct. Bilateral lower extremity edema was noted and a Duplex Scan of the lower extremity was performed 04/17/17. Results were normal. MRI of the adomen was performed 04/18/17. Foci of abnormal signal were noted in the spleen and mild hepatic steatosis. 04/19/17 chest xray performed. Bibasilar opacities markedly increased with congestive change and small bilateral pleural effusion. During patient exam on 04/19/17 it was noted he had labored breathing, fluid retention in his abdomen, and spiking bp( highest reached 176/114). Patient was placed on bipap and administed IV HTZ, metoprolol, nitroglycerin, and increased doses of Lasix. EKG was performed on 04/19/17 following this event. Study showed sinus tachy. Patient was examed again on 04/20/17 and was well appearing and in no acute distress. Patient had an episode of SOB and was required BiPAP. A CXR was ordered that revealed a pneumonia. He was treated with IV antibiotics until his fevers resolved for 48 hours. A CMP revealed declining renal function so the patient was evaluated by Dr. Hannon who recommended a possible renal Bx given his urine studies. The patient refused Hydralazine, Lasix and cardizem because he was afraid of the side effects. The patient was later medically stable and remained afebrile. The additional renal workup can be done outpatient per Dr. Hannon. Patient was seen and examined at 11:30 AM 04/24/17 670 B Upon ROS: Patient is frustrated by being here so long as well as concerns for having to pay for his hospital stay as he has no insurance Scrotal swelling has reduced significantly In addition to the above on Exam: 2+ pitting edema bilateral LE from feet to just inferior to the tibial tuberosities Scrotal edema has significantly reduced Assessments: ARF: likely secondary to post infectious process. Spoke with Commercial Finance Manager Dr. Chung and ok for discharge from renal standpoint. Blood work ordered by Dr. Chung to be done before discharge and Dr. Chung stated he will follow up. Dr. Chung has instructed patient to follow up with him through the [facility]. Pneumonia: complete PO Antibiotic (Ciprfoloxacin 500 mg PO 2x/day through ) Fever: resolved Anemia: S/P 6th unit PRBC on 04/22/17. Since then HgB/Hct has remained stable and has actually increased to above 9 today. Patient is asymptomatic but is tachycardiac (but I feel that this may have to do with him not taking his blood pressure medications). Patient to have monitoring of his HgB/Hct through the [facility]. Patient will also have to schedule follow up with Distribution Dispatcher Dr. Mark Khan [phone] SOB: resolved HTN: refusing to take his blood pressure medications because of the side effects that he read on the internet. Explained to patient yesterday 04/23/17 and today 04/24/17 that medicine involved weighing risk vs benefit and that his benefit far outweighed the risks if he did not take his blood pressure medication such as CVA, CA, further kidney damaged. He understands these risks and he was implored to take his medications as prescribed at discharge. NonAnion Gap Metabolic Acidosis: resolved Tachycardia Elevated LFTs: resolved Elevated CEA: need colonoscopy as outpatient arranged through the [facility]. Bilateral Lung Nodules: repeat CT Chest in 6 months through [facility]. Epistaxis: resolved Acute Cholecystitis: as seen on CT Abd/Pelvis and U/S however HIDA and MRI Abd did not show this. Asymptomatic Hyperkalemia: resolved Hyponatremia: resolved A copy of the following instructions will need to be provided to the patient upon discharge: 1). Schedule follow up with the [facility] located at [address] in [place], [place] [address]. Call [phone] on 04/25/17 to schedule this appointment to take place in within the next 7 days. The doctors there will be your Primary Care Physicians and help to coordinate your care. 2). Through the [facility] you will need to arrange the following: Monitoring of your Hemoglobin to make sure that it is remaining stable. Scheduling of a Colonoscopy to check your colon to make sure that there are no masses. Follow up with Distribution Dispatcher Dr. Mark Khan [phone] in 2 weeks Follow up with Kidney Specialist Dr. Chung in [address] Scan of your Chest in 6 months time to make sure that the nodules in your lungs are stable. 3). You were given prescriptions for the following medications. Please have them filled at your pharmacy and take as directed: Ciprofloxacin 500 mg, 1 tablet with breakfast and 1 tablet with dinner until finished, Disp: #12, NO refills Aldactone 25 mg, 1 tablet by mouth 1x/day with breakfast (7 AM), Disp #30, NO refills Metoprolol Tartrate 50 mg, 1 tablet by mouth 2x/day (9 AM and 9 PM), Disp #60, NO refills Lisinopril 10 mg, 1 tablet by mouth 1x/day (1 PM), Disp #30, NO refills Norvasc 5 mg, 1 tablet by mouth 1x/day (5 PM), Disp #30, NO refills 4). Please ask your pharmacist which probiotic he/she recommends and take once a day at lunch time through 05/31/17. 5). Failure to follow the above instructions will have serious consequences to your health. 6). Please take care and be well. Discharge Exam - Head Exam Head Exam: ATRAUMATIC, NORMAL INSPECTION, NORMOCEPHALIC Discharge Plan - Discharge Medications Prescriptions: amLODIPine [Norvasc] 5 mg PO DAILY #30 tab Famotidine [Pepcid] 20 mg PO DAILY #30 tab Lisinopril [Zestril] 10 mg PO DAILY #30 tab Metoprolol Tartrate [Lopressor] 50 mg PO BID #60 tab Spironolactone [Aldactone] 25 mg PO DAILY #30 tab - Follow Up Plan Condition: STABLE Disposition: HOME/ ROUTINE Instructions: Metoprolol (By mouth), Spironolactone (By mouth), Lisinopril (By mouth), Famotidine (By mouth), Furosemide (By mouth), Gastritis (DC), Acute Kidney Injury (DC), Heart Healthy Diet (DC), Upper Endoscopy (DC), Hypertension (DC), Hypertension (GEN), Anemia (DC) Additional Instructions: 1). Schedule follow up with the [facility] located at [address] in [place], [place] [address]. Call [phone] on 04/25/17 to schedule this appointment to take place in within the next 7 days. The doctors there will be your Primary Care Physicians and help to coordinate your care. 2). Through the [facility] you will need to arrange the following: Monitoring of your Hemoglobin to make sure that it is remaining stable. Scheduling of a Colonoscopy to check your colon to make sure that there are no masses. Follow up with Distribution Dispatcher Dr. Mark Khan [phone] in 2 weeks Follow up with Kidney Specialist Dr. Chung in [address] Scan of your Chest in 6 months time to make sure that the nodules in your lungs are stable. 3). You were given prescriptions for the following medications. Please have them filled at your pharmacy and take as directed: Ciprofloxacin 500 mg, 1 tablet with breakfast and 1 tablet with dinner until finished, Disp: #12, NO refills Aldactone 25 mg, 1 tablet by mouth 1x/day with breakfast (7 AM), Disp #30, NO refills Metoprolol Tartrate 50 mg, 1 tablet by mouth 2x/day (9 AM and 9 PM), Disp #60, NO refills Lisinopril 10 mg, 1 tablet by mouth 1x/day (1 PM), Disp #30, NO refills Norvasc 5 mg, 1 tablet by mouth 1x/day (5 PM), Disp #30, NO refills 4). Please ask your pharmacist which probiotic he/she recommends and take once a day at lunch time through 05/31/17. 5). Failure to follow the above instructions will have serious consequences to your health. 6). Please take care and be well. Referrals: [facility] [Outside] Mark Khan MD [Staff Provider] - Vini Diez MD [Staff Provider] - Reji Chung MD [Staff Provider] -
== END 2017-04-24 15:50 | disposition home or self-care (01) | DRG 574 ==
LOC: C.ER 01:22 → C.6T 05:09
PROVIDERS: ADMIT Family Medicine; ATTEND Family Medicine
PROC: 30233N1 Transfusion of Nonautologous Red Blood Cells into Peripheral Vein, Percutaneous Approach (ICD-10-PCS; principal; 2017-04-09)
PROC: 0DB98ZX Excision of Duodenum, Via Natural or Artificial Opening Endoscopic, Diagnostic (ICD-10-PCS; 2017-04-12)
PROC: 0DB68ZX Excision of Stomach, Via Natural or Artificial Opening Endoscopic, Diagnostic (ICD-10-PCS; 2017-04-12)
DX: D53.9 Nutritional anemia, unspecified (principal); J18.9 Pneumonia, unspecified organism; E87.4 Mixed disorder of acid-base balance; J90 Pleural effusion, not elsewhere classified; N17.9 Acute kidney failure, unspecified; N00.9 Acute nephritic syndrome with unspecified morphologic changes; K81.0 Acute cholecystitis; E87.1 Hypo-osmolality and hyponatremia; J98.11 Atelectasis; K92.2 Gastrointestinal hemorrhage, unspecified; D69.6 Thrombocytopenia, unspecified; E87.70 Fluid overload, unspecified; E87.5 Hyperkalemia; K86.0 Alcohol-induced chronic pancreatitis; D63.8 Anemia in other chronic diseases classified elsewhere; F10.20 Alcohol dependence, uncomplicated; I10 Essential (primary) hypertension; K31.9 Disease of stomach and duodenum, unspecified; K76.0 Fatty (change of) liver, not elsewhere classified; K76.89 Other specified diseases of liver; K82.8 Other specified diseases of gallbladder; N50.89 Other specified disorders of the male genital organs; R04.0 Epistaxis; Z72.0 Tobacco use; Z79.899 Other long term (current) drug therapy

== ENCOUNTER 2017-07-24 07:23 | Day surgery (SDC) | payer MEDICAID ==
[2017-07-24 08:10] VITALS: BMI 22.6
[2017-07-24] MEDS ORDERED: Propofol 10 mg/ml Inj (20 ML) ONE ×2 (10:17→10:24)
[2017-07-24] MEDS ORDERED: Lidocaine Hydrochloride 5 ML INJ ONE (10:21)
[2017-07-24 11:00] VITALS: TEMP 96.9; O2SAT 100
[2017-07-24 15:50] VITALS: BP 95/64; PULSE 69; RESP 18
== END 2017-07-24 12:59 | disposition home or self-care (01) ==
LOC: C.ENDO 07:23
PROVIDERS: ATTEND Internal Medicine
DX: D64.89 Other specified anemias (principal); Z12.11 Encounter for screening for malignant neoplasm of colon; D12.3 Benign neoplasm of transverse colon; K57.30 Diverticulosis of large intestine without perforation or abscess without bleeding; K64.8 Other hemorrhoids
CPT/HCPCS: 45380; 88305; J2704

== ENCOUNTER 2017-08-09 08:12 | Day surgery (SDC) | payer MEDICAID ==
[2017-08-09] MEDS ORDERED: Lidocaine 1% Inj (20ml) ONE (08:40)
[2017-08-09] MEDS ORDERED: Bupivacaine-Epi 0.25%-1:200,000 PF Inj ONE (08:40)
[2017-08-09] MEDS ORDERED: ceFAZolin IV 2 gm in Dextrose 2 GM/50 ML BAG IVPB ONE (08:47)
[2017-08-09] MEDS ORDERED: Lactated Ringer's 1,000 ML IV ONE (09:11)
[2017-08-09] MEDS ORDERED: Propofol 10 mg/ml Inj (20 ML) ONE (09:41)
[2017-08-09] MEDS ORDERED: Midazolam 2 MG/2 ML VIAL ONE (09:41)
[2017-08-09] MEDS ORDERED: ePHEDrine 50 mg/ml Inj ONE (09:42)
--- NOTE | 2017-08-09 10:27 | PCM.SURG1 ---
Surgeon's Initial Post Op Note - Surgeon's Notes Surgeon: Marty Burns MD Computer Console Operator: THAI Champagne Type of Anesthesia: General Endo Pre-Operative Diagnosis: Sebaceous cyst of Left upper back and neck area Operative Findings: Sebaceous cyst of Left upper back and neck Post-Operative Diagnosis: Sebaceous cyst of Left upper back and neck area Operation Performed: Excision of Sebaceous cyst of Left upper back and neck Specimen/Specimens Removed: Sebaceous cyst of Left upper back and neck area Estimated Blood Loss: EBL {In ML}: 10 Blood Products Given: N/A Drains Used: No Drains Post-Op Condition: Good Date of Surgery/Procedure: 08/09/17 Time of Surgery/Procedure: 10:27
[2017-08-09 11:23] VITALS: RESP 16
[2017-08-09 12:19] VITALS: BP 123/75; PULSE 97; TEMP 97.6; O2SAT 97
--- NOTE | 2017-08-09 20:16 | OP ---
PROCEDURE DATE: 08/09/2017 PREOPERATIVE DIAGNOSIS: Sebaceous cyst of the neck and upper back. POSTOPERATIVE DIAGNOSIS: Sebaceous cyst of the neck and upper back. PROCEDURES DONE: 1. Excision of sebaceous cyst of the left upper neck and the back, 4x3 cm. 2. Layered closure of the wound, 4x3 cm. SURGEON: The procedure was done by Dr. Grant darden. [employer]ICE PRESIDENT [employer] SAL[employer]: THAI Champagne. TYPE OF ANESTHESIA: Local anesthesia plus sedation. ESTIMATED BLOOD LOSS: Around 10 mL. DRAIN: None. PATHOLOGY: The sebaceous cyst of the left upper neck sent for the pathology, left upper back was sent for the pathology. COMPLICATIONS: None. INTRAOPERATIVE FINDINGS: Patient had approximately 4x3 cm sebaceous cyst of the left upper back and the neck area. DESCRIPTION OF PROCEDURE: On intraoperative steps, this is a 52-year-old male who was diagnosed with infected sebaceous cyst of the left upper neck and the back area and after resolution of the infection, the patient was consented for the excision of sebaceous cyst of the left upper back and neck area, brought to the OR, placed him on operating table. After induction of the sedation, the left upper neck and back area was prepped and draped in the usual sterile fashion. An elliptical incision was made approximately 4x2 cm size to include the old scar and after that, upper and lower flap was created, lateral and medial dissection was done and the sebaceous cyst was completely excised from the underlying subcutaneous tissue and the fascia and the wound was irrigated. Hemostasis was achieved. The upper and lower flap was closed with a 2-0 Vicryl, multiple sutures; another layer of subcu to the flap with a 2-0 Vicryl; another layer of the subcu with 3-0 Vicryl; skin with a 4-0 Monocryl and a dry sterile dressing was applied. Patient tolerated the procedure well. Count of instrument and gauze was correct. There was no apparent complication. The patient was reversed from sedation in the OR, sent to the Postanesthesia Care Unit in stable condition. Marty Burns MD
== END 2017-08-09 12:26 | disposition home or self-care (01) ==
LOC: C.SDS 08:12
PROVIDERS: ATTEND Surgery Surgical Critical Care
DX: L72.3 Sebaceous cyst (principal)
CPT/HCPCS: 11426; 12042; 88304; J0690; J2250; J2704; J3010; J7120